=== PATIENT | female | born 1950 | race Caucasian/White ===

== ENCOUNTER 2020-07-17 06:52 | Outpatient (NON) | payer MEDICARE, BC, SELFPAY ==
[2020-07-17 23:41] LABS: SARS-CoV-2 RNA PCR Positive
== END 2020-07-17 06:53 ==
PROVIDERS: Visit Provider Family Medicine
DX: U07.1 COVID-19 (principal)
CPT/HCPCS: 87635; C9803; U0003

== ENCOUNTER → 2020-08-20 10:37 | Outpatient (CLI) | payer MEDICARE, BC, SELFPAY ==
--- NOTE | ~2020-08-20 | MM_ITS ---
EXAMINATION: MM screening sesar BI w guero HISTORY: Screening mammogram TECHNIQUE: Craniocaudal and mediolateral oblique 3-D tomosynthesis images were obtained and synthetic 2-D images were generated. CAD analysis was submitted and interpreted. COMPARISON: 02/10/2012, bilateral digital screening mammogram examinations BREAST PARENCHYMAL COMPOSITION: FINDINGS: Occasional benign calcifications. There is no evidence of suspicious mass, calcification, o r architectural distortion to suggest malignancy in either breast. There has been no suspicious inter sj change. IMPRESSION: 1. No mammographic evidence of malignancy. 2. Recommend routine screening mammography in one year. BI-RADS Category 2: Benign finding(s). Reviewed, dictated and finalized at location A.
== END ==
PROVIDERS: PCP Physician Assistant; Visit Provider Physician Assistant
DX: Z12.31 Encounter for screening mammogram for malignant neoplasm of breast (principal)
CPT/HCPCS: 77063; 77067

== ENCOUNTER → 2021-10-05 14:25 | Outpatient (CLI) | payer MEDICARE, BC, SELFPAY ==
--- NOTE | ~2021-10-05 | XR_ITS ---
XR shoulder RT min 2V 10/05/2021 15:25 Indication: Right shoulder pain Procedure: 4 views right shoulder Comparison: No prior studies for comparison. Findings: No fracture, subluxation or dislocation. There is ossification adjacent to the humeral head , consistent with calcific tendinopathy. No fracture or traumatic malalignment. No significant soft t issue abnormality. 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 Reviewed, dictated and finalized at location A. OLOGY SPECIALIST Impression: 1: Probable calcific tendinopathy.
== END ==
PROVIDERS: PCP Physician Assistant; Visit Provider Physician Assistant
DX: M25.519 Pain in unspecified shoulder (principal)
CPT/HCPCS: 73030

== ENCOUNTER → 2022-02-22 14:48 | Outpatient (CLI) | payer MEDICARE, BC, SELFPAY ==
--- NOTE | ~2022-02-22 | XR_ITS ---
EXAMINATION: XR hip RT min 2V DATE: 02/22/2022 15:19 INDICATION: Right hip pain. TECHNIQUE: 2 views of right hip were obtained. COMPARISON: None. FINDINGS: Bone alignment is normal. No fracture. There is mild right hip osteoarthritis. IMPRESSION: 1. Mild right hip osteoarthritis. Reviewed, dictated and finalized at location A.
== END ==
PROVIDERS: Visit Provider Physician Assistant
DX: M16.11 Unilateral primary osteoarthritis, right hip (principal)
CPT/HCPCS: 73502

== ENCOUNTER → 2022-12-16 09:59 | Outpatient (CLI) | payer MEDICARE, BC, SELFPAY ==
--- NOTE | ~2022-12-16 | XR_ITS ---
XR wrist RT min 3V DATE: 12/16/2022 10:31 INDICATION: Right wrist pain TECHNIQUE: 4 views COMPARISON: None FINDINGS: There is osteopenia. There is mildly comminuted recent minimally displaced fracture of the proximal aspect of the lunate b one. No definite fracture of the wrist is identified. No dislocation. There is osteoarthritic change at the first metacarpophalangeal joint and multiple interphalangeal vinny ints, particularly severe at the proximal interphalangeal joints of the fourth digit. IMPRESSION: Lunate fracture Osteopenia Polyarticular osteoarthritis Reviewed, dictated and finalized at location B. [employer]GY INTERNS[employer]IP
== END ==
PROVIDERS: PCP Physician Assistant; Visit Provider Physician Assistant
DX: M19.031 Primary osteoarthritis, right wrist (principal); M85.831 Other specified disorders of bone density and structure, right forearm; S62.121A Displaced fracture of lunate [semilunar], right wrist, initial encounter for closed fracture; X58.XXXA Exposure to other specified factors, initial encounter
CPT/HCPCS: 73110

== ENCOUNTER → 2023-01-13 13:32 | Outpatient (CLI) | payer MEDICARE, BC, SELFPAY ==
--- NOTE | ~2023-01-13 | MR_ITS ---
MRI of the right wrist Technique: Coronal T1 weighted and proton density fat sat images, and axial and sagittal proton-densi ty and proton-density fat-sat images were acquired. Clinical History: Pain Findings: There is patchy amorphous bone marrow edema, particularly involving the distal arm and the proximal carpal row. There is hypointense T1 signal of the lunate, with findings suggestive healing f racture of the lunate. Suggestion of scattered erosions, again, most notably at the ulnar styloid pro cess, and proximal carpal row, but also possibly involving the capitate and trapezium. No dislocation evident. Scapholunate ligament is intact, and there is no widening of the scapholunate interval. Lunotriquetra l ligament is probably intact. There is probable complete perforation of the central articular disc o f the TFCC, which is poorly delineated. There is tenosynovitis of the extensor carpi ulnaris tendon focally at the level of the distal ulna. Remaining flexor and extensor tendons and tendon sheath are otherwise unremarkable. There is a small ganglion cyst just superficial to the distal ulna. IMPRESSION: Patchy amorphous bone marrow edema involving the distal ulna and proximal carpal, with suggestion of scattered erosions and synovitis. Findings suggest inflammatory arthropathy. Correlate clinically. Suggestion of healing fracture of the lunate bone. Tenosynovitis focally of the extensor carpi ulnaris tendon sheath. Probable complete perforation of the central articular disc of the TFCC. Reviewed, dictated and finalized at [facility]. INAL ATTORNEY IMPRESSION: Patchy amorphous bone marrow edema involving the distal ulna and proximal carpa l, with suggestion of scattered erosions and synovitis. Findings suggest inflam matory arthropathy. Correlate clinically. Suggestion of healing fracture of the lunate bone. Tenosynovitis focally of the extensor carpi ulnaris tendon sheath. Probable complete perforation of the central articular disc of the TFCC.
== END ==
PROVIDERS: PCP Family Medicine; Visit Provider Orthopaedic Surgery Hand Surgery
DX: M25.531 Pain in right wrist (principal); M65.841 Other synovitis and tenosynovitis, right hand
CPT/HCPCS: 73221

== ENCOUNTER 2023-02-08 10:42 | Outpatient (CLI) | payer MEDICARE, BC, SELFPAY ==
--- NOTE | 2023-02-08 | ECG_ITS ---
Measurements Intervals [place] Rate: 83 P: 50 NE: 145 QRS: 22 QRSD: 85 T: 29 QT: 345 QTc: 406 Interpretive Statements SINUS RHYTHM VENTRICULAR BIGEMINY LOW QRS VOLTAGE IN PRECORDIAL LEADS CONSIDER INFERIOR INFARCT, AGE INDETERMINATE ABNORMAL ECG COMPARED TO ECG 02/16/2019 17:52:32 NO SIGNIFICANT CHANGES Electronically Signed On 02-08-2023 12:45:49 CDT by Albin Sutton D.O.
[2023-02-08 11:41] LABS: Anion Gap 6 mmol/L (8-16); Blood Urea Nitrogen 19 mg/dL (7-17); Calcium 9.4 mg/dL (8.4-10.2); Carbon Dioxide 25 mmol/L (22-30); Chloride 104 mmol/L (98-107); Estimated Glomerular Filt Rate > 60; Glucose 149 mg/dL (65-110); Potassium 4.5 mmol/L (3.4-5.0); Sodium 135 mmol/L (137-145)
== END 2023-02-08 10:43 | disposition home or self-care (01) ==
LOC: ANHLAB 10:46
PROVIDERS: PCP Family Medicine; Visit Provider Orthopaedic Surgery Hand Surgery
DX: M79.641 Pain in right hand (principal); Z01.818 Encounter for other preprocedural examination; R94.31 Abnormal electrocardiogram [ECG] [EKG]
CPT/HCPCS: 36415; 80048; 93005

== ENCOUNTER → 2023-02-08 13:30 | Outpatient (CLI) | payer MEDICARE, BC, SELFPAY ==
--- NOTE | ~2023-02-08 | MM_ITS ---
EXAMINATION: MM screening sesar BI w guero HISTORY: Screening TECHNIQUE: Craniocaudal and mediolateral oblique 3-D tomosynthesis images were obtained and synthetic 2-D images were generated. CAD analysis was submitted and interpreted. COMPARISON: No prior mammogram is available for comparison at this institution. BREAST PARENCHYMAL COMPOSITION: There are scattered areas of fibroglandular density. FINDINGS: There is no evidence of suspicious mass, calcification, or architectural distortion to sugg est malignancy in either breast. There has been no suspicious interval change. IMPRESSION: 1. No mammographic evidence of malignancy. 2. Recommend routine screening mammography in one year. BI-RADS Category 1: Negative Reviewed, dictated and finalized at location A.
== END ==
PROVIDERS: PCP Family Medicine; Visit Provider Physician Assistant
DX: Z12.31 Encounter for screening mammogram for malignant neoplasm of breast (principal)
CPT/HCPCS: 77063; 77067

== ENCOUNTER 2024-04-16 15:51 | Outpatient (CLI) | payer MEDICARE, BC, SELFPAY ==
--- NOTE | ~2024-04-16 | MM_ITS ---
EXAMINATION: MM screening sesar BI w guero HISTORY: Screening TECHNIQUE: Craniocaudal and mediolateral oblique 3-D tomosynthesis images were obtained and synthetic 2-D images were generated. CAD analysis was submitted and interpreted. COMPARISON: Comparison to multiple prior studies sequentially, with oldest reviewed study dated 08/20. BREAST PARENCHYMAL COMPOSITION: Not dense: There are scattered areas of fibroglandular density. FINDINGS: There is no evidence of suspicious mass, calcification, or architectural distortion to sugg est malignancy in either breast. There has been no suspicious interval change. IMPRESSION: 1. No mammographic evidence of malignancy. 2. Recommend routine screening mammography in one year. BI-RADS Category 1: Negative Reviewed, dictated and finalized at location A.
== END 2024-04-16 15:52 | disposition home or self-care (01) ==
LOC: ANHIMG 15:52
PROVIDERS: PCP Family Medicine; Visit Provider Physician Assistant
DX: Z12.31 Encounter for screening mammogram for malignant neoplasm of breast (principal)
CPT/HCPCS: 77063; 77067

== ENCOUNTER 2024-05-02 08:49 | Outpatient (CLI) | payer MEDICARE, BC, SELFPAY ==
--- NOTE | ~2024-05-02 | US_ITS ---
US arterial ankle brachial ind INDICATION: Peripheral vascular disease TECHNIQUE: Segmental pressures and plethysmographic and Doppler waveforms of the brachial and lower e xtremity arteries were obtained. COMPARISON: None. FINDINGS: Right and left brachial artery pressures of 149 mm Hg and 131 mm Hg, respectively, are concordant (no rmal difference <= 30 mmHg). The right ankle-brachial index (FLORA) is 1.05 (normal >= 0.9-1.0). The right great toe-brachial index (TBI) is 0.55 (normal >= 0.60). The left FLORA is 1.06. The left TBI is 0.23. IMPRESSION: 1. Normal ankle-brachial indices. 2: Diminished bilateral toe brachial indices, left greater than right, consistent with peripheral ar terial disease. Reviewed, dictated and finalized at location B. IMPRESSION: 1. Normal ankle-brachial indices. 2: Diminished bilateral toe brachial indices, left greater than right, consist ent with peripheral arterial disease.
== END 2024-05-02 08:50 | disposition home or self-care (01) ==
LOC: ANHIMG 08:50
PROVIDERS: PCP Family Medicine; Visit Provider Physician Assistant
DX: I73.9 Peripheral vascular disease, unspecified (principal)
CPT/HCPCS: 93922

== ENCOUNTER 2024-06-13 16:13 | Outpatient (CLI) | payer MEDICARE, BC, SELFPAY ==
--- NOTE | ~2024-06-13 | XR_ITS ---
AP and lateral views of the left hip Clinical history: Pain Findings: No acute fracture or dislocation is seen. Osseous alignment is anatomic. Left hip joint is preserved. Soft tissues are unremarkable. Impression: No significant abnormality is seen. Reviewed, dictated and finalized at location M. Impression: No significant abnormality is seen.
--- NOTE | ~2024-06-13 | XR_ITS ---
AP view of the pelvis and AP and lateral views of the right hip Clinical history: Pain Findings: No acute fracture or dislocation is seen. Osseous alignment is anatomic. Bilateral hip and SI joint spaces are preserved. Soft tissues are unremarkable. Impression: No significant abnormality is seen. Reviewed, dictated and finalized at location . Impression: No significant abnormality is seen.
--- NOTE | ~2024-06-13 | XR_ITS ---
Lumbosacral Spine: AP, oblique, and lateral views Clinical History: Pain Findings: The normal lordotic curve is maintained. No acute fracture identified. Probable grade 1 ant erolisthesis of L5 over S1. There is severe degenerative disc narrowing throughout the lumbar spine. There is severe facet arthropathy throughout the lumbar spine. The sacroiliac joints are normally out lined. Impression: Severe degenerative spondylosis throughout the lumbar spine. Probable grade 1 anterolisthesis of L5 over S1. Reviewed, dictated and finalized at location M. Impression: Severe degenerative spondylosis throughout the lumbar spine. Probable grade 1 anterolisthesis of L5 over S1.
== END 2024-06-13 16:14 | disposition home or self-care (01) ==
PROVIDERS: PCP Family Medicine; Visit Provider Physician Assistant
DX: M47.896 Other spondylosis, lumbar region (principal); M25.552 Pain in left hip; M25.551 Pain in right hip
CPT/HCPCS: 72110; 73502

== ENCOUNTER 2024-06-15 20:11 | Emergency (ER) | payer MEDICARE, BC, SELFPAY ==
[2024-06-15] VITALS (21 sets, daily range): BP systolic 103–141; BP diastolic 52–62; PULSE 86; RESP 16; TEMP 36.4; O2SAT 96–100
--- NOTE | ~2024-06-15 | CT_ITS ---
EXAMINATION: CT lumbar spine wo con DATE: 06/16/2024 00:06 INDICATION: Low back pain radiating down the legs TECHNIQUE: Computed tomography (CT) of the head was performed without intravenous contrast. The mA wa s adjusted according to patient size. Iterative reconstruction technique was employed. Exam dose: 14 81.12 mGy-cm total exam DLP. Lumbar spine COMPARISON: 06/13/2024 lumbar spine FINDINGS: Incidental findings: Hiatal hernia. Diverticulosis of the sigmoid colon. Small lower pole left renal nonobstructing calculus versus less likely arterial calcification. There is severe degenerative disc disease throughout the lumbar spine including L1-2 through L5-S1, w ith severe loss of disc space height, degenerative spurring, vacuum phenomenon at all levels. There is prominent degenerative change of the lumbar apophyseal joints bilaterally. Moderate to severe spinal canal stenosis at L2-3, mild spinal canal stenosis at L3-4 and moderate to severe spinal stenosis at L4-5. Multiple bilateral foraminal stenosis, most severe at L5-S1. IMPRESSION: Severe lumbar spondylosis; no fracture or bone destruction Reviewed, dictated and finalized at Location A. Reviewed, dictated and finalized at location A.
--- NOTE | ~2024-06-15 | XR_ITS ---
XR chest 2V DATE: 06/16/2024 00:29 INDICATION: Lower extremity edema TECHNIQUE: AP and lateral views COMPARISON: 12/09/2015 PA and lateral chest FINDINGS: Mild cardiomegaly. Aortic ectasia and tortuosity. No hilar or mediastinal enlargement is ev ident. Mild discoid atelectasis or scarring in the lower lung zones. No pulmonary consolidation, pleural eff usion, pulmonary vascular congestion or pneumothorax is detected. IMPRESSION: Mild bilateral lower lung discoid atelectasis or scarring Cardiomegaly Reviewed, dictated and finalized at location A.
[2024-06-15 23:57] LABS: Basophils Absolute Auto 0.1 K/mm3 (0.0-0.1); Basophils Percent Auto 0.7 % (0.2-1.2); Eosinophils Absolute Auto 0.2 K/mm3 (0-0.3); Eosinophils Percent Auto 3.1 % (0-4.4); Hemoglobin 10.6 g/dL (12.0-15.0); Immature Granulocyte Absolute 0.02 K/mm3 (0.00-0.031); Immature Granulocyte Percent A 0.3 % (0-0.5); Lymphocytes Absolute Auto 3.43 K/mm3 (0.9-3.2); Lymphocytes Percent Auto 45.9 % (18.3-44.2); Mean Corpuscular HGB Conc 31.2 g/dl (32-36); Mean Corpuscular Volume 86.7 fl (80-100); Mean Platelet Volume 9.1 fl (7.4-10.4); Monocytes Absolute Auto 0.6 K/mm3 (0.1-0.6); Monocytes Percent Auto 8.6 % (2.6-8.5); Neutrophils Absolute Auto 3.1 K/mm3 (1.3-6.7); Neutrophils Percent Auto 41.4 % (45.5-73.1); Platelet Count Result 337 k/mm3 (150-375); Red Blood Count 3.92 M/mm3 (4.2-5.4); Red Cell Distribution Width 17.3 % (11.5-14.5); White Blood Count 7.5 K/mm3 (4.5-10.0)
[2024-06-16] VITALS (17 sets, daily range): BP systolic 120–136; BP diastolic 51–69; PULSE 86; RESP 14; O2SAT 90–100
[2024-06-16 00:07] LABS: Prothrombin Time 13.6 Seconds (11.1-14.7)
[2024-06-16 00:08] LABS: Partial Thromboplastin Time 28.8 Seconds (22.3-36.8)
--- NOTE | 2024-06-16 00:09 | ED.BACK ---
HPI - Back Pain/Injury General Chief Complaint: Back Pain/Injury Stated Complaint: leg/lower back pain Time Seen by Provider: 06/15/24 22:48 Source: patient Mode of arrival: ambulatory Limitations: no limitations History of Present Illness HPI Narrative: This is a 74-year-old female presents to the emergency department for low back pain. Ongoing over the last month. No known injury. Radiation into the legs bilaterally. Reports weakness in the legs. She has been seeing her primary care provider for this and is currently taking [place] and muscle relaxers. She is scheduled for an MRI in about a week. Denies saddle anesthesia or bowel/bladder incontinence. Related Data Home Medications Medication Instructions Recorded Confirmed acetaminophen 500 mg capsule 500 mg PO Q6H PRN 12/01/22 aspirin 81 mg tablet,delayed 81 mg PO DAILY 12/01/22 release (Adult Aspirin Regimen) omeprazole magnesium 20 mg 20 mg PO DAILY 12/01/22 tablet,delayed release (Prilosec OTC) Allergies Allergy/AdvReac Type Severity Reaction Status Date / Time lisinopril Allergy Unknown Cough Verified 06/11/24 18:00 Review of Systems Review of Systems: CONSTITUTIONAL: Denies fever MUSCULOSKELETAL: Reports back pain, joint pain, and myalgia. NEUROLOGIC: Reports weakness. Denies numbness All systems reviewed & are unremarkable except as noted in HPI and below PMFSH Past Medical History Medical History Chronic kidney disease, stage 3a Gastro-esophageal reflux disease without esophagitis Generalized osteoarthritis Hyperlipidemia, unspecified Hypertensive chronic kidney disease with stage 1 through stage 4 chronic kidney disease, or unspecified chronic kidney disease Lumbar spondylosis Major depressive disorder, recurrent, in remission, unspecified Obstructive sleep apnea (adult) (pediatric) Restless legs syndrome Type 2 diabetes mellitus without complications Surgical History Surgical History H/O arthroscopy of right knee 08/2002 History of appendectomy 1974 History of arthroplasty of knee Left total knee 08/08/2005 Right total knee 08/20/03 History of carpal tunnel surgery 1998 History of laryngoscopy removed nodes of vocal cords 1984 History of surgery on right wrist proximal row carpectomy 2022 History of tonsillectomy and adenoidectomy 1952 and 1959 Family History Family History Father Acute myocardial infarction Heart disease Mother Hypertension Throat cancer Grandparent Cerebrovascular accident Diabetes mellitus Infection Alzheimer's dementia Social History Social History Smoking status: Never smoker Alcohol intake: current Substance use: never Substance use type: does not use Do You Feel Safe in your Home?: Yes Lack of Transportation: No Lack of Food: Never True Current Housing: I Have Housing Concerned About Future Housing: No Difficulty Paying Gas/Electric Bills: No Difficulty Paying for Meds: No Currently Unemployed: No Education: High School Diploma/GED Difficulty w/ Childcare or Family Care: No Living arrangements: with family Occupation/Education: retired Gender identity (if verbalized by the patient): Female Sexual Orientation (if Verbalized by the Patient): Straight or Heterosexual Spiritual care concerns: No Exam Narrative: GENERAL: Well-appearing, well-nourished, and in no acute distress. HEAD: Normocephalic, atraumatic. EYES: EOMI. CHEST: Clear to auscultation. No respiratory distress. No wheezes rales or rhonchi HEART: Regular rate and rhythm. No murmur heard. Normal peripheral pulses. BACK: No midline spinal tenderness. Strength equal in bilateral lower extremities (5/5). Normal DP pulses EXTREMITIES
[2024-06-16] MEDS: KETOROLAC 30 MG/ML VIAL (*BKC) IM (00:18)
[2024-06-16] MEDS: HYDROcodone/acetaminophen (*CRX) 5-325 MG TABLET 1 TAB PO (00:18)
[2024-06-16 01:08] LABS: Alanine Aminotransferase 27 U/L (6-35); Albumin Level 4.6 g/dL (3.5-5.1); Alkaline Phosphatase 63 U/L (38-126); Anion Gap 11 mmol/L (4-12); Aspartate Amino Transferase 42 U/L (14-36); Bilirubin,Total 0.5 mg/dL (0.2-1.3); Blood Urea Nitrogen 25 mg/dL (7-17); Calcium 9.3 mg/dL (8.4-10.2); Carbon Dioxide 23 mmol/L (22-30); Chloride 102 mmol/L (98-107); Estimated CRCL calculation 60 ml/min; Estimated Glomerular Filt Rate 54; Glucose 153 mg/dL (65-110); Potassium 4.9 mmol/L (3.4-5.0); Sodium 136 mmol/L (137-145)
[2024-06-16 01:16] LABS: NT Pro B Type Natriuretic Pept 98 pg/mL (19.9-100)
--- NOTE | 2024-06-16 02:12 | PC.NURSE ---
nathan lopez back to room to educate pts. no distress noted.
== END 2024-06-16 02:34 | disposition home or self-care (01) ==
PROVIDERS: Emergency Provider Physician Assistant; PCP Family Medicine
DX: M47.816 Spondylosis without myelopathy or radiculopathy, lumbar region (principal); M48.061 Spinal stenosis, lumbar region without neurogenic claudication; R60.0 Localized edema; E11.22 Type 2 diabetes mellitus with diabetic chronic kidney disease; I12.9 Hypertensive chronic kidney disease with stage 1 through stage 4 chronic kidney disease, or unspecified chronic kidney disease; N18.31 Chronic kidney disease, stage 3a; E78.5 Hyperlipidemia, unspecified; K21.9 Gastro-esophageal reflux disease without esophagitis; M19.90 Unspecified osteoarthritis, unspecified site; G47.33 Obstructive sleep apnea (adult) (pediatric); G25.81 Restless legs syndrome; Z96.653 Presence of artificial knee joint, bilateral; I51.7 Cardiomegaly; Z79.82 Long term (current) use of aspirin; Z79.84 Long term (current) use of oral hypoglycemic drugs; Z79.899 Other long term (current) drug therapy; Z79.891 Long term (current) use of opiate analgesic
CPT/HCPCS: 36415; 71046; 72131; 80053; 83880; 85025; 85610; 85730; 96372; 99284; A9270; J1885

== ENCOUNTER 2024-07-11 11:47 | Inpatient (IN) | payer MEDICARE, BC, SELFPAY ==
[2024-07-11] VITALS (14 sets, daily range): BP systolic 103–141; BP diastolic 46–88; PULSE 70–91; RESP 16–18; TEMP 36.5–36.9; O2SAT 95–100; BMI 43.2
--- NOTE | ~2024-07-11 | XR_ITS ---
XR chest 1V portable Ordering provider: Jorge Forman MD History: 74 years Female with . Back pain . Comparison: June 16, 2024 FINDINGS: MEDIASTINUM: The cardiac silhouette is slightly enlarged.prominent sherrill. LUNGS: No infiltrates, effusions or pneumothorax. Subsegmental atelectasis in the right midzone. OTHER: No free air under the diaphragm. Degenerative spine. IMPRESSION: No change from previous examination. Reviewed, dictated and finalized at location A.
--- NOTE | ~2024-07-11 | MR_ITS ---
EXAMINATION: MR lumbar spine wo/w con DATE: 07/12/2024 08:22 INDICATION: Lower extremity weakness. Low back pain. TECHNIQUE: Magnetic resonance imaging (MRI) of the lumbar spine was performed without and with 20 mL MultiHance intravenous contrast. COMPARISON: Lumbar spine MRI 04/10/2019 FINDINGS: There is 11 degrees dextroscoliosis of lumbar spine. There is 3 mm anterolisthesis of L4 on L5 and 3 mm retrolisthesis of L5 on S1. There is mild chronic anterior wedging of L1 vertebral body. There is severely decreased disc height from L1-L2 to L5-S1 with endplate remodeling. There is ligam entum flavum hypertrophy at the disc levels from L1-L2 through L5-S1. The distal spinal cord signal i ntensity is normal. The conus medullaris is at L1-L2. The following disc levels are specifically disc ussed: L1-L2: The disc is bulging and has an annular fissure. There is severe bilateral facet joint osteoart hritis. There is mild bilateral neural foraminal stenosis. There is mild central canal stenosis. L2-L3: The disc is bulging and has an annular fissure. There is severe bilateral facet joint osteoart hritis. There is moderate bilateral neural foraminal stenosis. There is severe central canal stenosis . L3-L4: The disc is bulging and has an annular fissure. There is severe bilateral facet joint osteoart hritis. There is mild right and moderate left neural foraminal stenosis. There is mild central canal stenosis. There is severe stenosis of left lateral recess. L4-L5: The disc is bulging and has an annular fissure. There is severe bilateral facet joint osteoart hritis. There is moderate bilateral neural foraminal stenosis. There is mild central canal stenosis. There is severe stenosis of right lateral recess. L5-S1: The disc is bulging and has an annular fissure. There is severe bilateral facet joint osteoart hritis. There is moderate bilateral neural foraminal stenosis. There is mild central canal stenosis. There is moderate stenosis of right lateral recess. IMPRESSION: 1. Severe lumbar spondylosis. 2. Scoliosis. Reviewed, dictated and finalized at location A.
[2024-07-11] MEDS: LIDOCAINE 5% PATCH 1 PATCH TRANSDERM (12:34)
[2024-07-11] MEDS: ACETAMINOPHEN 500 MG TABLET 1000 MG PO (12:34)
[2024-07-11] MEDS: KETOROLAC 15 MG/ML VIAL (*BKC) IV PUSH (12:34)
[2024-07-11] MEDS: diazePAM INJ (*CRX) 10 MG/2 ML SYRINGE 5 MG IV PUSH (12:34)
--- NOTE | 2024-07-11 13:30 | ED.GENADULT ---
HPI - General Adult General Chief complaint: Back Pain/Injury Stated complaint: back pain Time Seen by Provider: 07/11/24 11:54 History of Present Illness HPI narrative: This is a 74-year-old female with a history of subacute back pain presenting for back pain. Patient has had a complicated course over the last month. She was at [facility] for an MRI due to her back pain, however she cannot sit still due to pain. She was then eventually discharged and went to [facility] where she was admitted. She had still did not receive an MRI but was eventually discharged to a rehabilitation center where she has been for the last 2 weeks. She was discharged home yesterday and on her 1st morning back home she now has severe pain in her back that is preventing her from functioning. She is taking her medications as directed including oxycodone and Robaxin. Patient denies any weakness to the lower extremities, urinary retention bowel incontinence or saddle anesthesia. Patient does not believe that she was safe for discharge from the rehab center. No other complaints. No recent falls or trauma. Related Data Home Medications Medication Instructions Recorded Confirmed acetaminophen 500 mg capsule 500 mg PO Q6H PRN 12/01/22 aspirin 81 mg tablet,delayed 81 mg PO DAILY 12/01/22 release (Adult Aspirin Regimen) omeprazole magnesium 20 mg 20 mg PO DAILY 12/01/22 tablet,delayed release (Prilosec OTC) Allergies Allergy/AdvReac Type Severity Reaction Status Date / Time lisinopril Allergy Unknown Cough Verified 06/21/24 14:53 [facility] Past Medical History Medical History Chronic kidney disease, stage 3a Gastro-esophageal reflux disease without esophagitis Generalized osteoarthritis Hyperlipidemia, unspecified Hypertensive chronic kidney disease with stage 1 through stage 4 chronic kidney disease, or unspecified chronic kidney disease Lumbar spondylosis Major depressive disorder, recurrent, in remission, unspecified Obstructive sleep apnea (adult) (pediatric) Restless legs syndrome Type 2 diabetes mellitus without complications Surgical History Surgical History H/O arthroscopy of right knee 08/2002 History of appendectomy 1974 History of arthroplasty of knee Left total knee 08/08/2005 Right total knee 08/20/03 History of carpal tunnel surgery 1998 History of laryngoscopy removed nodes of vocal cords 1984 History of surgery on right wrist proximal row carpectomy 2022 History of tonsillectomy and adenoidectomy 3 and 1959 Family History Family History Father Acute myocardial infarction Heart disease Mother Hypertension Throat cancer Grandparent Cerebrovascular accident Diabetes mellitus Infection Alzheimer's dementia Social History Social History Smoking status: Never smoker Alcohol intake: current Substance use: never Substance use type: does not use Do You Feel Safe in your Home?: Yes Lack of Transportation: No Lack of Food: Never True Current Housing: I Have Housing Concerned About Future Housing: No Difficulty Paying Gas/Electric Bills: No Difficulty Paying for Meds: No Currently Unemployed: No Education: High School Diploma/GED Difficulty w/ Childcare or Family Care: No Living arrangements: with family Occupation/Education: retired Gender identity (if verbalized by the patient): Female Sexual Orientation (if Verbalized by the Patient): Straight or Heterosexual Spiritual care concerns: No Exam Narrative: APPEARANCE: No apparent distress. Obese Head: atraumatic. EYES: EOMI, NOSE: Atraumatic NECK: Trachea midline RESPIRATORY: No increased rate of breathing clear to auscultation CARDIOVASCULAR: RRR, ABDOMINAL
[2024-07-11 13:35] LABS: Basophils Percent Auto 0.6 % (0.2-1.2); Eosinophils Absolute Auto 0.1 K/mm3 (0-0.3); Eosinophils Percent Auto 1.8 % (0-4.4); Hematocrit 29.1 % (37.0-47.0); Hemoglobin 9.1 g/dL (12.0-15.0); Immature Granulocyte Absolute 0.02 K/mm3 (0.00-0.031); Immature Granulocyte Percent A 0.3 % (0-0.5); Lymphocytes Absolute Auto 2.53 K/mm3 (0.9-3.2); Mean Corpuscular HGB Conc 31.3 g/dl (32-36); Mean Corpuscular Hemoglobin 27.3 pg (26-34); Mean Corpuscular Volume 87.4 fl (80-100); Mean Platelet Volume 9.9 fl (7.4-10.4); Monocytes Absolute Auto 0.7 K/mm3 (0.1-0.6); Monocytes Percent Auto 10.1 % (2.6-8.5); Neutrophils Absolute Auto 3.8 K/mm3 (1.3-6.7); Neutrophils Percent Auto 52.2 % (45.5-73.1); Platelet Count Result 312 k/mm3 (150-375); Red Blood Count 3.33 M/mm3 (4.2-5.4); Red Cell Distribution Width 16.7 % (11.5-14.5); White Blood Count 7.2 K/mm3 (4.5-10.0)
[2024-07-11 13:45] LABS: Alanine Aminotransferase 60 U/L (6-35); Albumin Level 3.5 g/dL (3.5-5.1); Alkaline Phosphatase 87 U/L (38-126); Anion Gap 9 mmol/L (4-12); Aspartate Amino Transferase 64 U/L (14-36); Bilirubin,Total 0.4 mg/dL (0.2-1.3); Blood Urea Nitrogen 14 mg/dL (7-17); Calcium 8.7 mg/dL (8.4-10.2); Carbon Dioxide 24 mmol/L (22-30); Chloride 103 mmol/L (98-107); Estimated Glomerular Filt Rate > 60; Glucose 193 mg/dL (65-110); Sodium 136 mmol/L (137-145)
--- NOTE | 2024-07-11 13:53 | ECG_ITS ---
Test Date: 2024-07-11 14:44:39 Measurements Intervals [place] Rate: 72 P: 61 NE: 162 QRS: 36 QRSD: 77 T: 30 QT: 369 QTc: 405 Interpretive Statements SINUS RHYTHM NORMAL ECG No previous ECG available for comparison Electronically Signed On 07-12-2024 14:36:55 CDT by Edis Calloway M.D.
[2024-07-11 15:38] LABS: Add Urine Microscopic? YES; Appearance Urine Cloudy (Clear); Bacteria Urine 4+ /hpf; Bilirubin Urine Negative (Negative); Blood Urine Trace (Negative); Color Urine Yellow (Yellow); Glucose Urine UA Negative (Negative); Ketones Urine Negative (Negative); Leukocyte Esterase Ur 3+ LEU/UL (Negative); Nitrate Urine Positive (Negative); Non Pathogenic Casts 0-2; Protein Urine Negative (Negative); RBC Urine 0-2 /hpf (0-2); Specific Grav Ur 1.008 (1.001-1.035); Squamous Epithelial Cell Urine None Seen /hpf (Few); Urobilinogen Urine 0.2 mg/dL (<2.0); WBC Urine >100 /hpf (0-3)
[2024-07-11] MEDS: GABAPENTIN 300 MG CAPSULE 600 MG PO (16:03)
--- NOTE | 2024-07-11 17:03 | PM.IMHP ---
H&P: HPI History of Present Illness Date/Time: 07/11/24 17:03 Chief Complaint: Back Spasms, Chronic Pain Narrative: 74 y/o F presents here with back spasms and chronic back pain with PMH of CKD, HTN, diabetes, RLS, and hyperlipidemia. The patient presents here from home for further evaluation of back spasms and chronic back pain due to stenosis. Patient was recently admitted to [facility] from 06/22 to 06/26 for similar symptoms. There she was started on scheduled APAP, increased home Robaxin to 1500 mg t.i.d., continued p.r.n. oxycodone 10 mg q.4, started lidocaine patches and gabapentin which was titrated to 600 t.i.d.. Patient also underwent a left-sided L4 nerve root injection and per chart review, improved her pain significantly. She was discharged to rehab at [facility] for PT/OT. Patient underwent treatment there for 12-13 days and was discharged home on 07/10. Patient does not follow with neurosurgery or pain management. Has follow-up neurosurgery at [facility] next week Tu. Current regimen includes: Tylenol 500 mg q.6 hours, diclofenac 75 mg b.i.d., gabapentin 800 mg t.i.d., methocarbamol 1500 mg t.i.d., and tizanidine 4 mg q.8 hours. Patient took home medications without relief from pain and has been unable to ambulate due to the severity of pain. Patient has also previously attempted to undergo an outpatient MRI, however she was unable to tolerate the exam due to back pain and spasming which is what led her to seek care and the subsequent admission at [facility]. Patient reports overall pain has improved since initial presentation due to the nerve root injection and believes she would be able to tolerate an MRI at this time. Denies precipitating trauma prior to symptom onset 9 weeks ago. Reports her left lower extremity tends to be weaker than the right lower extremity. Pain is accompanied by numbness/tingling that primarily is more medial. Denies saddle anesthesia or loss of bowel and bladder. Initial VS at presentation: 97.9? F, HR 70, RR 16, 130/70, and 99% on RA. ED workup showed: No leukocytosis, hemoglobin 9.1 (previously 10.4 on 06/18/2024), creatinine 0.9 and GFR >60. UA consistent with UTI. CXR showed no change from previous examination on 06/16/2024. Review of Systems Review of Systems: All systems reviewed & are unremarkable except as noted in HPI and below [facility] Past Medical History Medical History Chronic kidney disease, stage 3a Gastro-esophageal reflux disease without esophagitis Generalized osteoarthritis Hyperlipidemia, unspecified Hypertensive chronic kidney disease with stage 1 through stage 4 chronic kidney disease, or unspecified chronic kidney disease Lumbar spondylosis Major depressive disorder, recurrent, in remission, unspecified Obstructive sleep apnea (adult) (pediatric) Restless legs syndrome Type 2 diabetes mellitus without complications Surgical History Surgical History H/O arthroscopy of right knee 08/2002 History of appendectomy 1975 History of arthroplasty of knee Left total knee 08/08/2005 Right total knee 08/20/03 History of carpal tunnel surgery 1998 History of laryngoscopy removed nodes of vocal cords 1984 History of surgery on right wrist proximal row carpectomy 2022 History of tonsillectomy and adenoidectomy 1952 and 1959 Family History Family History Father Acute myocardial infarction Heart disease Mother Throat cancer Hypertension Grandparent Alzheimer's dementia Diabetes mellitus Infection Cerebrovascular accident Sibling Dementia Social History Social History Smoking status: Former smoker Tobacco type: cigarettes Smoking end date: 07/11/72 Alcohol intake: never Substance use: never Sub
--- NOTE | 2024-07-11 20:09 | PCRCNOTE ---
Pt states she does not wear a cpap/bipap machine at home and she does not want to wear one of hospital units.
[2024-07-11] MEDS: oxyCODONE HCL (*CRX) 5 MG TAB IR 10 MG PO (20:38)
[2024-07-11] MEDS: ATORVASTATIN 40 MG TABLET 80 MG PO (20:38)
[2024-07-11 21:21] LABS: Glucose Point of Care 176 mg/dl (65-105)
[2024-07-11] MEDS: TIZANIDINE HCL 4 MG TABLET PO (21:36)
[2024-07-11] MEDS: GABAPENTIN 400 MG CAPSULE 800 MG PO (21:36)
[2024-07-12] VITALS: BP 132/46; PULSE 91; RESP 18; TEMP 36.6; O2SAT 95
[2024-07-12] MEDS: oxyCODONE HCL (*CRX) 5 MG TAB IR 10 MG PO ×4 (01:35→17:50)
[2024-07-12] MEDS: TIZANIDINE HCL 4 MG TABLET PO ×2 (05:16→13:21)
[2024-07-12] MEDS: GABAPENTIN 400 MG CAPSULE 800 MG PO ×2 (05:16→13:21)
[2024-07-12 06:00] VITALS: BP 163/69; PULSE 90; RESP 20; TEMP 37; O2SAT 95
[2024-07-12 08:34] LABS: Glucose Point of Care 198 mg/dl (65-105)
[2024-07-12] MEDS: IRBESARTAN 150 MG TABLET 300 MG PO (10:15)
[2024-07-12] MEDS: ASPIRIN 81 MG ENTERIC TABLET PO (10:15)
[2024-07-12] MEDS: DICLOFENAC SOD 75 MG TABLET.EC PO ×2 (10:16→17:48)
[2024-07-12] MEDS: LIDOCAINE 5% PATCH 1 PATCH TRANSDERM (10:16)
[2024-07-12] MEDS: PANTOPRAZOLE 40 MG TABLET PO (10:16)
[2024-07-12] MEDS: FERROUS SULFATE 325 MG TABLET DR BY MOUTH (10:16)
--- NOTE | 2024-07-12 12:07 | PM.IMPN ---
Progress Note: A&P Assessment and Plan (1) Back pain: Qualifiers: Back pain laterality: bilateral Back pain location: low back pain Chronicity: chronic Sciatica presence: unspecified whether sciatica present Qualified Code(s): M54.50 - Low back pain, unspecified; G89.29 - Other chronic pain Code(s): M54.9 - Dorsalgia, unspecified Status: Acute Assessment and Plan: 07/12/24: Lumbar spine CT showing severe lumbar spondylosis MRI of lumbar spine showing severe lumbar spondylosis and scoliosis, bulge disc and L1-L2, L2-L3, L3-L4, L4-L5, L5 to the S1 Continue pain control PT and OT ordered Will likely need SNF placement Case coordination following (2) Type 2 diabetes mellitus without complications: Qualifiers: Diabetes mellitus long-term insulin use: without long-term use Qualified Code(s): E11.9 - Type 2 diabetes mellitus without complications Code(s): E11.9 - Type 2 diabetes mellitus without complications Status: Chronic Assessment and Plan: 07/12/24: Blood sugars ranging 176-198 Hgb A1C 7.4 Will recheck hemoglobin A1c Accu checks AC/HS Low-dose SSI ordered hypoglycemic protocol in place Diabetic diet ordered Metformin held (3) Obstructive sleep apnea (adult) (pediatric): Code(s): G47.33 - Obstructive sleep apnea (adult) (pediatric) Status: Chronic Assessment and Plan: 07/12/24: Continue home CPAP (4) Hypertension: Code(s): I10 - Essential (primary) hypertension Status: Acute Assessment and Plan: 07/12/24: Blood pressures ranging 104/47-163/69 Continue Irbesartan Time Spent With Patient Time with patient: Greater than 35 minutes Subjective Date/time seen: 07/12/24 12:07 Interval history: Interval history: This is a 74-year-old female who presented to the hospital on 07/11/2024 for evaluation of back spasms and chronic pain. Workup in the hospital included a chest x-ray which was negative. Lumbar spine CT showed severe lumbar spondylosis, no fracture or bone destruction. Lumbar spine MRI showing severe lumbar spondylosis and scoliosis, bulge disc at L1-L2, L2-L3, L3-L4, L4-L5, L5-S1. Of note patient underwent a left-sided L4 nerve root injection at [facility] and was discharged to rehab for PT and OT. She was discharged home on 07/10/2024. 07/12/24: Patient reporting that she does not use a cane or walker at home and has been in the wheelchair over the course of 6-8 weeks when her back pain started. She would like to get back to a better level of functioning now that she had this nerve root injection at [facility]. Patient denies any fever, chills, nausea, vomiting, diarrhea, abdominal pain, chest pain, shortness a breath, lightheadedness, dizziness. She does report numbness and tingling in bilateral lower extremities likely due to her neuropathy. Labs and imaging reviewed. Review of Systems Review of Systems: All systems reviewed & are unremarkable except as noted in HPI and below Constitutional: Constitutional: Reports as per HPI and Reports no additional constitutional complaints Eyes: Eyes: Reports as per HPI and Reports no additional eye complaints ENT: Reports system reviewed and no additional complaints, except as documented and Reports as per HPI Cardiovascular: Cardiovascular: Reports as per HPI and Reports no additional cardiovascular complaints Respiratory: Respiratory: Reports as per HPI and Reports no additional respiratory complaints Gastrointestinal: Gastrointestinal: Reports as per HPI and Reports no additional gastrointestinal complaints Genitourinary: Genitourinary: Reports no additional female genitourinary complaints and Reports as per HPI Musculoskeletal: Musculoskeletal: Reports no additional musculoskeletal complaints and Reports as per HPI Integumentary/Breasts: Skin/Breast: Reports system reviewed and no additional complaints, except as docu an
[2024-07-12 12:23] LABS: Glucose Point of Care 185 mg/dl (65-105)
[2024-07-12 13:21] LABS: Basophils Absolute Auto 0.1 K/mm3 (0.0-0.1); Basophils Percent Auto 0.7 % (0.2-1.2); Eosinophils Absolute Auto 0.2 K/mm3 (0-0.3); Eosinophils Percent Auto 1.8 % (0-4.4); Hematocrit 33.8 % (37.0-47.0); Hemoglobin 10.6 g/dL (12.0-15.0); Immature Granulocyte Absolute 0.03 K/mm3 (0.00-0.031); Immature Granulocyte Percent A 0.3 % (0-0.5); Lymphocytes Absolute Auto 3.01 K/mm3 (0.9-3.2); Lymphocytes Percent Auto 33.1 % (18.3-44.2); Mean Corpuscular HGB Conc 31.4 g/dl (32-36); Mean Corpuscular Hemoglobin 27.4 pg (26-34); Mean Corpuscular Volume 87.3 fl (80-100); Mean Platelet Volume 9.6 fl (7.4-10.4); Monocytes Absolute Auto 0.8 K/mm3 (0.1-0.6); Monocytes Percent Auto 8.8 % (2.6-8.5); Neutrophils Percent Auto 55.3 % (45.5-73.1); Platelet Count Result 363 k/mm3 (150-375); Red Blood Count 3.87 M/mm3 (4.2-5.4); Red Cell Distribution Width 16.7 % (11.5-14.5); White Blood Count 9.1 K/mm3 (4.5-10.0)
[2024-07-12 13:34] LABS: Anion Gap 10 mmol/L (4-12); Bilirubin,Total 0.4 mg/dL (0.2-1.3); Blood Urea Nitrogen 15 mg/dL (7-17); Calcium 9.2 mg/dL (8.4-10.2); Carbon Dioxide 28 mmol/L (22-30); Chloride 100 mmol/L (98-107); Estimated CRCL calculation 68 ml/min; Estimated Glomerular Filt Rate > 60; Glucose 174 mg/dL (65-110); Sodium 138 mmol/L (137-145)
[2024-07-12 13:35] LABS: Alanine Aminotransferase 59 U/L (6-35); Albumin Level 3.9 g/dL (3.5-5.1); Alkaline Phosphatase 89 U/L (38-126); Aspartate Amino Transferase 61 U/L (14-36)
[2024-07-12 14:00] VITALS: BP 121/93; PULSE 100; RESP 20; TEMP 36.4; O2SAT 98
--- NOTE | 2024-07-12 15:43 | WPDNEUROSGCN ---
Assessment and Plan Assessment and plan (1) Spinal stenosis: Qualifiers: Neurogenic claudication status: with neurogenic claudication Spinal region: lumbar Qualified Code(s): M48.062 - Spinal stenosis, lumbar region with neurogenic claudication Code(s): M48.00 - Spinal stenosis, site unspecified Status: Acute (2) Back pain: Qualifiers: Back pain laterality: bilateral Back pain location: low back pain Chronicity: chronic Sciatica presence: unspecified whether sciatica present Qualified Code(s): M54.50 - Low back pain, unspecified; G89.29 - Other chronic pain Code(s): M54.9 - Dorsalgia, unspecified Status: Acute (3) Unable to ambulate: Code(s): R26.2 - Difficulty in walking, not elsewhere classified Status: Acute Plan Arabella is a very pleasant 74-year-old female with a spinal canal stenosis and neurogenic claudication with left lower extremity weakness and intermittent incontinence issues worrisome for impending or developing cauda equina syndrome. We had a long discussion today. She has a very complex problem unfortunately. She has severe spinal canal stenosis at L2-3 with a left paracentral disc herniation and facet arthropathy as well as ligamentum flavum hypertrophy leading to severe spinal canal stenosis. This is what is most likely causing the left lower extremity weakness. She is somewhat unclear about the bladder bowel incontinence. She is not stating that she is having clear incontinence of bladder or bowel, it only happens when she has severe amount pain. Regardless given the weakness I think proceeding with surgical intervention is totally reasonable at this time, unfortunately this is a complex situation given her scoliosis multilevel spondylosis. She needs a decompression at L2-3 however by decompressing her at L2-3 in the setting of scoliosis and multilevel degenerative disc disease as well as the large gap between the facet joints CT and MRI on the left side I am worried that she would most likely have decompensation of her scoliosis and or instability postoperatively. We are going to discuss this with the family and discuss whether we proceed forward with surgical intervention which would most likely be a posterior spinal fusion at L2-3 with laminectomy. Consult date: 07/12/24 Time Seen: 15:44 Reason for consult: Lower extremity weakness HPI: Arabella Padron is a 74 year old female was asked to see for left lower extremity weakness and severe back pain. She is a very pleasant 74-year-old female with an 8-9 week history of worsening back pain and left lower extremity pain. She was recently admitted to [facility] for intractable pain, she was sent to [facility] for rehabilitation, states that she was doing better and was subsequently sent home. She underwent an injection on 06/25/2024. She was unable to get an MRI at her last hospitalization secondary to severe pain. She went home for 1 day and was readmitted to [facility] for worsening pain in the left lower extremity. She gets cramps and spasms in her lower extremities and her back left greater than right with any sort of movement. She has been unable to walk for some time now, was walking with a cane/walker. Now is unable to ambulate secondary to pain. She has not the best historian, states that it has been sometime since she has been walking pain-free. She has had incontinence issues of both bladder and bowel, however she states that she can feel the urge to urinate or defecate it is just that she is unable to get to the bathroom on time or the pain gets so bad from trying to get to the bathroom that she just goes on herself. It is not kris overflow incontinence. The nurse states that they were trying to move her this morning and she had bowel incontinence however she was in severe pain. Unclear on how long this has been going on she says at least a couple of weeks. She is so weak she cannot lift he
[2024-07-12 16:58] LABS: Glucose Point of Care 145 mg/dl (65-105)
== END 2024-07-12 19:45 | disposition short-term general hospital (02) | DRG 552 ==
LOC: ANHED 16:33 → ANH3MEDSUR 16:56
PROVIDERS: Nurse Practitioner Acute Care; Admitting Provider Internal Medicine; Emergency Provider Emergency Medicine; PCP Family Medicine; Visit Provider General Practice
DX: M48.062 Spinal stenosis, lumbar region with neurogenic claudication (principal); N39.0 Urinary tract infection, site not specified; I12.9 Hypertensive chronic kidney disease with stage 1 through stage 4 chronic kidney disease, or unspecified chronic kidney disease; G89.29 Other chronic pain; M47.816 Spondylosis without myelopathy or radiculopathy, lumbar region; R26.2 Difficulty in walking, not elsewhere classified; E11.22 Type 2 diabetes mellitus with diabetic chronic kidney disease; E78.5 Hyperlipidemia, unspecified; G47.33 Obstructive sleep apnea (adult) (pediatric); G25.81 Restless legs syndrome; K21.9 Gastro-esophageal reflux disease without esophagitis; N18.31 Chronic kidney disease, stage 3a; Z96.653 Presence of artificial knee joint, bilateral; Z87.891 Personal history of nicotine dependence; Z79.82 Long term (current) use of aspirin; Z79.84 Long term (current) use of oral hypoglycemic drugs; Z99.89 Dependence on other enabling machines and devices
CPT/HCPCS: 36415; 71045; 72158; 80053; 81001; 82948; 85025; 87077; 87086; 87088; 87186; 93005; 96374; 96375; 99285; A9270; A9577; J0696; J1885; J3360

== ENCOUNTER 2025-02-14 03:32 | Inpatient (IN) | payer MEDICARE, BC, SELFPAY ==
[2025-02-14] VITALS (18 sets, daily range): BP systolic 99–138; BP diastolic 49–105; PULSE 45–87; RESP 12–20; TEMP 36.1–36.8; O2SAT 85–100; BMI 33.4; BMI 33.1
--- NOTE | ~2025-02-14 | XR_ITS ---
Portable chest x-ray Comparison: 07/11/2024 Clinical History: Status post fall Findings: Lungs are clear, without focal consolidation or pleural effusion. Cardiomediastinal silho uette is stable. Bones and soft tissues are unremarkable. Impression: Clear lungs. Reviewed, dictated and finalized at location . Impression: Clear lungs.
--- NOTE | ~2025-02-14 | XR_ITS ---
AP view of the pelvis and AP and lateral views of the left hip Clinical history: Pain Findings: There is acute, mildly displaced subcapital fracture of the left femoral neck.. Bilateral h ip and SI joint spaces are preserved. Soft tissues are unremarkable. Impression: Acute subcapital fracture of the left femoral neck, as detailed above. Reviewed, dictated and finalized at location . Impression: Acute subcapital fracture of the left femoral neck, as detailed above.
--- NOTE | ~2025-02-14 | XR_ITS ---
EXAMINATION: XR hip LT min 2V DATE: 02/14/2025 16:24 INDICATION: Postop left hip arthroplasty TECHNIQUE: 2 views of the left hip were performed FINDINGS: There is a left total hip arthroplasty in expected position. Subcutaneous gas with soft ti ssue swelling are consistent with recent surgery. IMPRESSION: Expected postoperative appearance of a left-sided total hip arthroplasty, as detailed above. Reviewed, dictated and finalized at location A. IMPRESSION: Expected postoperative appearance of a left-sided total hip arthroplasty, as de tailed above.
--- NOTE | 2025-02-14 03:51 | ECG_ITS ---
Test Date: 2025-02-14 05:01:32 Measurements Intervals Flanagan Rate: 80 P: 19 MI: 141 QRS: 18 QRSD: 82 T: 16 QT: 368 QTc: 426 Interpretive Statements SINUS RHYTHM LOW QRS VOLTAGE IN PRECORDIAL LEADS [QRS DEFLECTION < 1.0 mV IN CHEST LEADS] Compared to ECG 07/11/2024 14:44:39 NO SIGNIFICANT CHANGES Electronically Signed On 02-14-2025 18:31:43 CDT by Jeb Garcia M.D.
[2025-02-14] MEDS: ONDANSETRON INJ 4 MG/2 ML VIAL IV PUSH (03:58)
[2025-02-14] MEDS: MORPHINE SULFATE (*CRX) 4 MG/ML INJ IV PUSH ×3 (03:59→07:57)
[2025-02-14 04:02] LABS: Basophils Percent Auto 0.3 % (0.2-1.2); Eosinophils Absolute Auto 0.2 K/mm3 (0-0.3); Eosinophils Percent Auto 1.8 % (0-4.4); Hematocrit 35.8 % (37.0-47.0); Immature Granulocyte Absolute 0.05 K/mm3 (0.00-0.031); Immature Granulocyte Percent A 0.4 % (0-0.5); Lymphocytes Absolute Auto 5.56 K/mm3 (0.9-3.2); Lymphocytes Percent Auto 45.8 % (18.3-44.2); Mean Corpuscular HGB Conc 30.7 g/dl (32-36); Mean Corpuscular Hemoglobin 24.5 pg (26-34); Mean Corpuscular Volume 79.7 fl (80-100); Monocytes Absolute Auto 0.7 K/mm3 (0.1-0.6); Monocytes Percent Auto 5.9 % (2.6-8.5); Neutrophils Absolute Auto 5.6 K/mm3 (1.3-6.7); Neutrophils Percent Auto 45.8 % (45.5-73.1); Platelet Count Result 383 k/mm3 (150-375); Red Blood Count 4.49 M/mm3 (4.2-5.4); Red Cell Distribution Width 16.2 % (11.5-14.5); White Blood Count 12.1 K/mm3 (4.5-10.0)
[2025-02-14 04:06] LABS: INR 0.9; Prothrombin Time 12.8 Seconds (11.1-14.7)
[2025-02-14 04:07] LABS: Partial Thromboplastin Time 28.9 Seconds (22.3-36.8)
[2025-02-14 04:09] LABS: Alanine Aminotransferase 23 U/L (6-35); Albumin Level 4.7 g/dL (3.5-5.1); Alkaline Phosphatase 87 U/L (38-126); Anion Gap 13 mmol/L (4-12); Aspartate Amino Transferase 30 U/L (14-36); Bilirubin,Total 0.3 mg/dL (0.2-1.3); Blood Urea Nitrogen 33 mg/dL (7-17); Calcium 9.7 mg/dL (8.4-10.2); Carbon Dioxide 20 mmol/L (22-30); Chloride 103 mmol/L (98-107); Estimated CRCL calculation 52 ml/min; Estimated Glomerular Filt Rate 52; Glucose 117 mg/dL (65-110); Potassium 4.1 mmol/L (3.4-5.0); Sodium 136 mmol/L (137-145)
--- OUTSIDE RECORDS SUMMARY | 2025-02-14 04:30 | XMS_ITS | Data Portability ---
Author Organization [place] [facility], Main Office Address [address] [place] [address] Care Team Providers Care Lathmaker Name Role Phone FRANCISCA COMER Primary Care Provider [phone] FRANCISCA COMER Referring Provider Assessment No assessment recorded. Plan of Treatment Reminders Order Date Submit Date Provider Last Modified By Organization Details Last Modified Time Details Appointments None record ed. Lab None record ed. Referral None record ed. Procedures None record ed. Surgeries None record ed. Imaging None record ed. Medication Orders None record ed. Patient TargetsNo targets recorded. Patient InstructionsNo instructions recorded. Reason for Referral None Reported. Results Created Date Observation Date Name Description Value Unit Range Abnormal Flag Note LastModifiedBy Organization Detail LastModifiedTime 12/19/19 23 12/16/2022 XR, wrist , 3 or more view No observ ation record ed. [id number] Not Available 01/25/2023 12:46:48 01/16/20 23 01/13/2023 MRI, wrist , w/o contr ast No observ ation record ed. [id number] [facility] [address], [place], [address], 01/25/2023 12:46:48 Result Notes None recorded. Problems Name Problem SNOMED Code Status Onset Date Resolution Date Notes Provider Name and Address Organization Details Recorded Time Disorder of shoulder 877477006 Active Not Available [facility] 12:45:18 Radiothera py follow-up 006139088 Active Not Available [facility] 12:45:18 Shoulder joint pain 684811835 Active Not Available [facility] 12:45:18 Closed fracture of metatarsal bone 73558038 Active Not Available [facility] 3 12:45:18 Adhesive capsulitis of shoulder 720666906 Active Not Available [facility] 3 12:45:18 Disorder of rotator cuff 953504429 Active Not Available [facility] 3 12:45:18 Fracture of lower leg 587118334 Active Not Available [facility] 3 12:45:18 Disorder of bursa of shoulder region 80795370 Active Not Available [facility] 3 12:45:18 Pain of right wrist 1561139663844 00 Active 2022 Tatyana espinal, [place] [employer] [facility] [employer] 3 16:01:27 Osteonecro sis of lunate 173975661 Active 2022 Tatyana espinal, [place] [facility] [employer] 3 16:01:38 Problem Notes None recorded. Procedures Surgical History Date Name Laterality Status Provider Name and Address Organization Details Recorded Time Carpal tunnel completed Not Available [facility] 01/25/2023 12:44:47 microlaryngoscopy completed Not Available [facility] 01/25/2023 12:44:47 Knee Replacement completed Not Available [facility] 01/25/2023 12:44:47 Imaging Results Imaging Date Name Status LastModified by Organiz ation Details LastModified Time 12/16/2022 XR, wrist, 3 or more view completed [id number] Information not available 01/25/2023 12:46:48 01/13/2023 MRI, wrist, w/o contrast completed [id number] [facility] [address], [place], [address], 01/25/2023 12:46:48 Procedure Notes None recorded. Medical Equipment None Reported. Medications Name Sig Start Date Stop Date Status Note LastModified by Organization Details LastModified Time cyclobenzap rine 10 mg tablet 11/15 completed Not Available Not Available Not Available amoxicillin 500 mg capsule 11/15 completed Not Available Not Available Not Available atorvastati n 80 mg tablet TAKE 1 TABLET BY MOUTH EVERY DAY active Not Available Not Available No t Available prednisone 10 mg tablet 11/15 completed Not Available Not Available Not Available azithromyci n 250 mg tablet 11/15 completed Not Available Not Available Not Available hydrocodone 5 mg-acetamin ophen 325 mg tablet 11/15 completed Not Available Not Available Not Available prednisone 20 mg tablet 11/15 completed Not Available Not Available Not Available pioglitazon e 45 mg tablet 11/15 completed Not Available Not Available Not Available chlorthalid one 25 mg tablet 11/15 completed Not Available Not Available Not Available amlodipine 5 mg tablet TAKE 1 TABLET BY MOUTH EVERY DAY active Not Available Not Available No t Available sulfamethox azole 800 mg-trimetho prim 160 mg tablet 11/15 completed Not Available Not Available Not Available tramadol 50 mg tablet 11/15 completed Not Available Not Available Not Available amoxicillin 875 mg tablet 11/15 completed Not Available Not Available Not Available citalopram 20 mg tablet TK 1 T PO QD 11/15 completed Not Available Not Available Not Available meclizine 25 mg tablet TAKE 1 TABLET BY MOUTH THREE TIMES DAILY NEEDED FOR DIZZINESS active Not Available Not Available No t Available sulfacetami de sodium 10 % eye drops 11/15 completed Not Available Not Available Not Available hydrocodone 7.5 mg-acetamin ophen 325 mg tablet TAKE 1 TABLET EVERY 6 HOURS NEEDED FOR PAIN active Not Available Not Available No t Available metformin 1,000 mg tablet TAKE 1 TABLET BY MOUTH EVERY DAY WITH A MEAL active Not Available Not Available No t Available ropinirole 0.5 mg tablet TK 1 T PO QD HS 11/15 completed Not Available Not Available Not Available aspirin 81 mg chewable tablet Chew 1 tablet every day by oral route. 2022 active Not Available Not Available Not Avai lable diclofenac sodium 75 mg tablet,lavonne yed release TAKE 1 TABLET BY MOUTH TWICE DAILY active Not Available Not Available No t Available montelukast 10 mg tablet 11/15 completed Not Available Not Available Not Available irbesartan 150 mg tablet 11/15 completed Not Available Not Available Not Available pioglitazon e 30 mg tablet 11/15 completed Not Available Not Available Not Available irbesartan 300 mg tablet TAKE 1 TABLET BY MOUTH EVERY DAY active Not Available Not Available No t Available acetaminoph en 2022 active Not Available Not Available Not Avai lable ProAir HFA 90 mcg/actuati on aerosol inhaler 11/15 completed Not Available Not Available Not Available omeprazole 20 mg tablet,lavonne yed release Take by oral route. 2022 active Not Available Not Available Not Avai lable alogliptin 12.5 mg-metformi n 1,000 mg tablet TAKE ONE TABLET BY MOUTH EVERY DAY active Not Available Not Available No t Available Invokana 100 mg tablet 11/15 completed Not Available Not Available Not Available Tanzeum 30 mg/0.5 mL subcutaneou s pen injector 11/15 completed Not Available Not Available Not Available Vitals Date Recorded Body mass index (BMI) Body height Body weight Provider Name and Address Organization Details Last Updated DateTime 01/03/2023 41.8 kg/m2 172.72 cm 169633.9 g Not Available [facility] 01/25/2023 12:44:54 Date Recorded Body mass index (BMI) Body height Pain severity - 0-10 verbal numeric rating [Score] - Reported Body weight Provider Name and Address Organization Details Last Updated DateTime 01/24/2023 41.1 kg/m2 172.72 cm 5 155258.94 g Not Available [facility] 01/25/2023 12:44:54 Date Recorded Body height Body mass index (BMI) Body weight Provider Name and Address Organization Details Last Updated DateTime 03/01/2023 172.72 cm 41.1 kg/m2 144697.94 g Tatyana Hughes [email or web address] 03/01/2023 16:01:02 Date Recorded Body height Body mass index (BMI) Body weight Provider Name and Address Organization Details Last Updated DateTime 03/29/2023 172.72 cm 41.1 kg/m2 661657.94 g YESSICA Mims [email or web address] 03/29/2023 15:57:23 Social History Question Answer Notes LastModified by Organizat ion Details LastModified Time Tobacco Smoking Status Former Smoker Not Available [facility] 01/25/2023 12:44:41 What Is Your Level Of Alcohol Consumption? Occasional [id number] Information not available 01/25/2023 When Did You Quit Smoking? 16+yearssinmylene bonilla [id number] Information not available 01/25/2023 What Was The Date Of Your Most Recent Tobacco Screening? 01/24/2023 [id number] Information not available 01/25/2023 Sex: Unknown Functional Status None recorded. Mental Status None recorded. Family History Relationship Description Onset Age of this Age Resolved Age Notes LastModified by Organization Details LastModified Time Mother Family history of malignant neoplasm [id number] Not available 01/25/2023 12:44:48 Mother Hypertensive disorder [id number] Not available 01/25/2023 12:44:48 Medical History Condition Response ARTHRITIS Y DIABETES, TYPE Y USE OF NSAIDS Y HYPERTENSION Y Gynecological HistoryNo gynecological history recorded. Obstetrics History GPAL:G 0 P 0 0 0 0 Past Encounters Encounter ID Performer Location Encounter Start Date Encounter Closed Date Diagnosis/Indication Diagnosis SNOMED-CT Code Diagnosis ICD10 Code Diagnosis Note [id number] [facility] [address] [place] [address] 01/03/2023 00:00:00 01/03/2023 12:24:59 [id number] [facility] [address] [place] [address] 01/24/2023 00:00:00 01/24/2023 12:12:33 [id number] MD KATELYN [facility] [address] [place] [address] 03/01/2023 15:57:25 03/01/2023 16:21:57 Pain of right wrist 9307119240 31535 M25.531 Osteonecro sis of lunate 210967489 M87.039 remove sutures today. Gave her a well fitted right wrist brace. She can take the brace off to shower and to do gentle range of motion. I will see her back in a month for follow-up an AP lateral x-rays out of the brace of her right wrist [id number] Damon Melo MD [facility] [address] [place] [address] 03/29/2023 15:54:29 03/29/2023 16:58:57 Pain of right wrist 6885743358 51305 M25.531 Osteonecro sis of lunate 451222220 M87.039 patient is x-rayed today looks quite nice with the capitate sitting in the radiolunat e fossa on the AP and the lateral view status post proximal row carpectomy . Patient can use her brace for heavy activity otherwise no need to use the brace I will see her back in 6 months for follow-up x-rays she can continue doing light strengthen ing exercises on her own no need for therapy as she has adequate motion and range of motion of her thumb and fingers already Health Concerns Section Related Observation LastModified by Organization Detai ls LastModified Time None Recorded Concern Status LastModified by Organization Details LastModified Time None Recorded Advance Directives Directive None Recorded Payers Encounter Date Sequence Insurance Name Policy Number Policy Lozano Covered Member ID Lozano Member ID Guarantor Name 03/01/2023 1 [place] Arabella Padron [id number] Arabella Padron 03/01/2023 2 [place] 111 Arabella Padron [id number] Arabella Padron 03/29/2023 1 [place] Arabella Padron [id number] Arabella Padron 03/29/2023 2 [place] 111 Arabella Padron [id number] Arabella Padron Notes Date Note Type Note Provider Name and Address Organization Details Recorded Time 03/01/2023 text/html 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 we did a proximal row carpectomy she comes in today for follow-up doing very nicely at this point Damon Melo MD [address] [place] [address], [phone], [facility] 03/01/2023 17:12:50 03/29/2023 text/html 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
--- OUTSIDE RECORDS SUMMARY | 2025-02-14 04:30 | XMS_ITS | Continuity of Care Document ---
Author Organization [facility] [place] Address [address] [place] [address] Phone Care Team Providers Care Team Coordinator Name Role Phone Raisa Marc Unavailable Unavailable Procedures Procedure Date Eye Exam & Treatment Refraction Eye Exam & Treatment Eye Exam & Treatment Advance Directives Directive Yes / No Effective Date File Name No Information Encounters Encounter Description Practice Location Reason(s) For Visit Diagnoses Date Provider Providers Copied on Encounter [facility], [address] [place] [address] [address], [place], [place], [id number], tel:[phone] [facility] No Information [phone] Tari Hernandez [address], [place], [place], [facility], [place]. tel:[phone] [facility], [address] [place] [address] [address], [place], [place], [id number], [place] tel:[phone] [facility] No Information 1200 9 Tari Hernandez [address], [place], [place], [facility], [place]. tel:[phone] [facility], [address] [place] [address] [address], [place], [place], [id number], tel:[phone] [facility] No Information Leroy-1 [phone] Tari Hernandez [address] , [address], [place], [address], [place]. tel:[phone] Family History Family Member Type Diagnosis Age At Onset No Information Payers Payer name Insurance type Covered republican ID Authoreduin baptiste(s) [place] [id number] Social History Type Description Quantity Date Captured Comments Sex Female Smoking Status No Information Chief Complaint And Reason For Visit No Information Reason For Referral Reason For Referral No Information History Of Present Illness Encounter Date Complaint History Of Prese nt Illness No Information Functional Status Date Functional Assessmen t No Information Instructions Date Instruction Additional Infor mation No Information Assessments Type Assessment Date No Information Patient Care Teams Name Effective Dates (start - stop) Status Members No Information
--- OUTSIDE RECORDS SUMMARY | 2025-02-14 04:30 | XMS_ITS | Clinical Summary ---
Author Organization [facility] Address [address] [place] [address] Care Team Providers Care Occupational Safety Specialist Name Role Phone Aurelio Hercules MD Primary Care Provider [phone] Social History Tobacco Use Types Packs/Day Years Used Date Smoking Tobacco: Never Assessed Comments Unknown Sex and Gender Information Value Date Recorded Sex Assigned at Not on file Legal Sex Female 7:24 PM CDT Gender Identity Not on file Sexual Orientation Not on file Plan of Treatment Health Maintenance Due Date Last Done Comments Colorectal Cancer Screening Colonoscopy (10 Years) 1950 Hepatitis C 02/28/1968 DTaP, Tdap and Td Vaccines (1 - Tdap) 1969 Mammogram Screening 1990 Zoster Vaccines (1 of 2) 02/28/2000 Annual Medicare Wellness Visit 2015 Dexa Scan (General) 2015 Pneumococcal Vaccine: 65+ Years (2 of 2 - PPSV23 or PCV20) 07/16/2016 07/16/2015 COVID-19 Vaccine ( - 2023- season) 2024 Influenza Adult (#1) 2024 12/20/2021, 12/23/2019, 10/29/2018, Additional history exists RSV Immunization or 60+ Years (1 - 1-dose 75+ series) 2025 Meningococcal B Vaccine Aged Out No l onger eligible based on patient's age to complete this topic Meningococcal Vaccine Aged Out No abhay miguel eligible based on patient's age to complete this topic RSV Immunizations Under 20 Months Aged Out No longer eligible based on patient's age to complete this topic Insurance MEDICARE [facility] Care Teams Occupational Safety Specialist Relationship Specialty Start Date End Date Aurelio Hercules MD [address] [place] [id number] PCP - General FAMILY PRACTICE 08/28/24
--- OUTSIDE RECORDS SUMMARY | 2025-02-14 04:31 | XMS_ITS | Clinical Summary ---
Author Organization [facility] [address] Address [address] [place] [address] Care Team Providers Care Forestry Extension Specialist Name Role Phone Aurelio Hercules MD Primary Care Provider [phone] Edis Jeffrey MD Unavailable Miscellaneous, Not In File Unavailable Unava ilable Allergies Active Allergy Reactions Criticality Noted Date Comments Burak Inhibitors Cough Reaction: Cough, Lisinopril Medications aspirin 81 mg chewable tablet Take 1 tablet (81 mg total) by mouth daily Active ferrous sulfate 325 mg (65 mg of elemental iron) tabletIndication s:Iron Deficiency Anemia Take 1 tablet (325 mg total) by mouth daily with breakfast Active atorvastatin (LIPITOR) 80 mg tablet Take 1 tablet (80 mg total) by mouth daily Active calcium carbonate (TUMS) 500 mg (200 mg elemental calcium) chewable tablet Take 2 tablet/chew tab (1,000 mg total) by mouth 3 (three) times a day as needed for heartburn 4 07/17/20 25 Active insulin glargine (LANTUS, SEMGLEE) 100 unit/mL vial for injectionIndicat ions:Diabetes Mellitus Inject 10 Units under the skin nightly 4 09/30/20 25 Active insulin lispro (HumaLOG, ADMELOG) 100 unit/mL pen for injectionIndicat ions:type 2 diabetes mellitus Inject 3 Units under the skin 3 (three) times a day with meals (plus blood glucose mg/dL 150-199: 1 unit, 200-249: 2 units, 250-299: 3 units, 300-349: 4 units, 350 or greater: 5 units. Notify provider for blood glucose greater than 299 mg/dL. ) Refer to After Visit Summary for Sliding Scale Insulin Instructions. 4 Active acetaminophen (TYLENOL) 325 mg tablet Take 2 tablets (650 mg total) by mouth every 6 (six) hours as needed for pain 4 Active peg 400-propylene glycol (SYSTANE) 0.4-0.3 % ophthalmic solution Administer 1 drop into both eyes 3 (three) times a day as needed (dry eyes) 4 Active folic acid (FOLVITE) 1 mg tablet Take 1 tablet (1 mg total) by mouth daily 4 10/01/20 25 Active cyclobenzaprine (FLEXERIL) 5 mg tablet Take 1 tablet (5 mg total) by mouth 3 (three) times a day as needed for muscle spasms 30 tablet 4 Active cefdinir (OMNICEF) 300 mg capsuleIndicatio ns:Other (complete free text reason below),bone infection prophylaxis no stop date Take 1 capsule (300 mg total) by mouth 2 (two) times a day 60 capsule 1 4 Active polyethylene glycol (MIRALAX) 17 gram/dose bulk powder Take 17 g by mouth daily 510 g 4 Active senna-docusate (PERICOLACE) 8.6-50 mg Take 2 tablets by mouth 2 (two) times a day 4 Active methocarbamoL (ROBAXIN) 750 mg tablet Take 1 tablet (750 mg total) by mouth 3 (three) times a day 90 tablet 4 Active escitalopram (LEXAPRO) 20 mg tablet Take 1 tablet (20 mg total) by mouth daily 30 tablet 4 Active losartan (COZAAR) 25 mg tablet Take 1 tablet (25 mg total) by mouth daily 30 tablet 4 Active miconazole 2 % powder Apply topically 2 (two) times a day 70 g 4 Active omeprazole (PriLOSEC) 20 mg capsule Take 1 capsule (20 mg total) by mouth daily 30 capsule 4 Active oxyCODONE (ROXICODONE) 10 mg tabletIndication s:Pain Take 1 tablet (10 mg total) by mouth every 8 (eight) hours as needed for pain 30 tablet 4 Active metFORMIN (GLUCOPHAGE) 500 mg tablet Take 1 tablet (500 mg total) by mouth 2 (two) times a day with meals 60 tablet 4 11/15/20 25 Active Active Problems Problem Noted Date Diagnosed Date Unintentional weight loss 11/04/2024 Assessment & Plan (11/04/2024 12:25 PM VIDEO GAME PROGRAMMER): RD following. Has been losing weight overtime w/ medical issues/hospitalization. Weight prior to hospitalization/surgery 270, now 228.6. Continue to monitor. Anxiety 10/03/2024 Assessment & Plan (10/10/2024 1:24 PM VIDEO GAME PROGRAMMER): Increased with pain 10/09. Did not utilized Hydroxyzine. Have reminded. Feels more controlled today & denies need for adjustment. Will utilize hydroxyzine if needed in future. Assessment & Plan (10/07/2024 12:36 PM VIDEO GAME PROGRAMMER): Remains tearful. Not requiring PRN Atrax. Continue Lexapro. Assessment & Plan (10/03/2024 5:35 PM VIDEO GAME PROGRAMMER): Started on Lexapro 10/02. Continues ot have anixety. Start Hydroxyzine PRN o=for anixety. Monitor. Depression 10/02/2024 Assessment & Plan (11/06/2024 6:03 PM VIDEO GAME PROGRAMMER): This is subacute and improved. She is no longer tearful and her affect seems to be more cheerful and forward looking. We will continue escitalopram 30 mg daily. Assessment & Plan (11/01/2024 1:59 PM VIDEO GAME PROGRAMMER): Her affect is flat and she is weepy. She agrees to increase her escitalopram from 20 to 30 mg daily. The scripting is entered as an order Assessment & Plan (10/17/2024 11:15 AM VIDEO GAME PROGRAMMER): Continue Lexapro 20mg. She continues to be very tearful. Have educated will take 2-4 weeks for max benefits of medication. When asked why she is crying she states, I do not know, and laughs. Assessment & Plan (10/15/2024 7:17 PM VIDEO GAME PROGRAMMER): Recently started on Lexapro 10mg. Will increase to 20mg. Monitor. Assessment & Plan (10/02/2024 5:49 PM VIDEO GAME PROGRAMMER): She is a bit tearful and depressed with a flat affect. On the day of her admission to the hospital she found that her best friend had suddenly . Likewise she has had several family members in a short time. She is asking for something to help with her nerves and depression. She feels anxious. 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 Will need fu with ID/NSY before dc abx. Assessment & Plan (10/28/2024 1:32 PM VIDEO GAME PROGRAMMER): IV abx to be complete 11/02 & then will transition to PO. Has ID appt 10/29 telehealth. PICC to be dc after completion. Patient still needs NSY appt. Dtr has to call to make. Patient will remind dtr to call today. She reports her pain is much better. Is only requiring PRN with tx. Have changed script to PRN q8h. Continue Tyl PRN. Decrease Robaxin to 750mg TID. She does self-limit herself with tx d/t fear of pain. Tx to work on transfers, standing & SS to discuss placement. Assessment & Plan (10/15/2024 7:16 PM VIDEO GAME PROGRAMMER): Continue IV abx, labs as ordered. Will fu with SS on status of appts. Pain controlled. PT/OT. Assessment & Plan (10/10/2024 1:24 PM VIDEO GAME PROGRAMMER): Patient is suppose to call NSY to schedule appt. SS working on ID appt. Patient did have increased pain to back with muscle spasms & anxiety 10/09. Today reports improved & believed from sitting up in chair too long. She is taking Tyl 650mg q6h PRN, Lidoderm, Methocarbamol 1500 TID rosenda + oxycodone 10mg q4h rosenda. Discussed changing regimen & agreeable to holding off. Have reminded to utilize PRN Tyl & will add PRN muscle relaxer also. If continues consider trialing low-dose Lyrica as she is unable to take gabapentin. Of note she did have some drainage to lumbar incision on bed, incision assessed, well approximated with no concerns. Monitor. Assessment & Plan (10/07/2024 12:32 PM VIDEO GAME PROGRAMMER): IV abx 11/02 with weekly labs & FU with ID outpt, Dr. Gibbons. Will have SS make appt. Pain controlled. Dtr did ask for Gabapentin to be dc as causes her to be loopy. Assessment & Plan (10/03/2024 5:34 PM VIDEO GAME PROGRAMMER): Continue IV abx until 11/02 followed by PO. FU ID. Weekly labs. Oxy, Claude, Tyl for pain. Lovenox for DVT prop. Assessment & Plan (10/02/2024 5:49 PM VIDEO GAME PROGRAMMER): This is subacute and currently stable. Follow up labs ordered. Continue cefazolin 2 g IV piggyback every 8 hours through November 02. Thereafter, she is to continue cefdinir 300 mg b.i.d. for 180 days. Of course she is to follow up with Infectious Disease and primary. At the present time she is also taking gabapentin 100 mg daily p.r.n. and oxycodone 10 mg every 4 hours around the clock. She wants to coincide her therapy sessions with intake of her analgesic and the head therapist is so advised. VENICE (obstructive sleep apnea) 09/20/2024 Microcytic anemia 09/20/2024 Assessment & Plan (10/15/2024 7:13 PM VIDEO GAME PROGRAMMER): H&H stable. Monitor. Assessment & Plan (10/02/2024 5:47 PM VIDEO GAME PROGRAMMER): Continue ferrous sulfate as scripted Status post lumbar spine edwina bertha for decompression of spinal cord 09/20/2024 Assessment & Plan (11/04/2024 12:21 PM VIDEO GAME PROGRAMMER): Pain controlled with oxycodone before tx & PRN, Robaxin & Tyl PRN. She has NSY appt 12/04. Has completed IV abx, currently on PO. Assessment & Plan (10/22/2024 12:48 PM VIDEO GAME PROGRAMMER): Pain is controlled. Continues on abx as prescribed. Will transition to PO abx 11/02. ID/NSY fu pending - SS has been working on. Has only been taking oxy during day. Have adjusted to QID to be given at 0600, 1200, 1800, 2200. PRN Tyl & muscle relaxers in place also. Assessment & Plan (10/17/2024 11:14 AM VIDEO GAME PROGRAMMER): NSY fu scheduled per SS - unsure of appt. ID appt still pending. She does have PO abx orders to start after IV abx. Continue rosenda oxy a4h, she is refusing if not needed. PRN Tyl in place as well as rosenda & PRN muscle relaxers. Assessment & Plan (10/07/2024 12:34 PM VIDEO GAME PROGRAMMER): Needs surgical fu with Dr. Jeffrey & orders for staple removal. Concerns for drainage to incision over weekend. Assessed & approxiated, dry. Monitor. Bacteremia 09/19/2024 Adhesive capsulitis of shoulder 06/27/2024 Slow transit constipation 06/26/2024 Assessment & Plan (11/04/2024 12:23 PM VIDEO GAME PROGRAMMER): Constipation resolved with large dose of Miralax. Now has diarrhea but reports improved today. Will restart Miralax BID + Senna BID. Could benefit possibly from Linzess. Monitor closely to prevent constipation reoccurring. Assessment & Plan (11/01/2024 1:58 PM VIDEO GAME PROGRAMMER): She is upset she has not had a bowel movement by her accounting in 8 days. She does note that during her toilet hygiene there is a smear on the tissue. She is frustrated that nothing seems to be helping. I have suspended her lactulose MiraLax, sennosides with docusate (all below I agree with all these measures) and I have ordered a 1 time dose of MiraLax as 7 packets of 17 g in 32 oz of water or juice to be sipped over the next 8 hours. I have asked the nurses to repeat this exercise of intake Monday morning if they are still no effective bowel movement. I have also asked to be notified by Monday morning if there was no response to the total consumption. I would assume, that we will be resuming 1 or more of her softeners once she has purged her bowel. Assessment & Plan (10/28/2024 1:31 PM VIDEO GAME PROGRAMMER): BM stable. Continue current regimen. Assessment & Plan (10/22/2024 12:45 PM VIDEO GAME PROGRAMMER): Patient continues to report constipation. Currently taking Miralax daily, Senna- P 2 tab qd. Will increase Senna-P to 2 tabs BID. Monitor. Assessment & Plan (10/15/2024 7:21 PM VIDEO GAME PROGRAMMER): Continue Senna-P, add miralax daily. PRN MOM in place BID also. Assessment & Plan (06/27/2024 8:40 AM CDT): Likely related to opioid use and minimal activity. Had great response to meds yesterday. Will change miralax to prn. Counseled the patient that if she continues to use opioids, she should at least take senna or miralax daily going forward HTN (hypertension) 06/23/2024 Assessment & Plan (11/06/2024 6:02 PM VIDEO GAME PROGRAMMER): This is currently stable. We will continue to monitor serial vital signs. We will continue scripted losartan. Assessment & Plan (11/01/2024 2:00 PM VIDEO GAME PROGRAMMER): This is currently stable. Please continue scripted losartan Assessment & Plan (10/02/2024 5:45 PM VIDEO GAME PROGRAMMER): This is chronic and currently stable. Monitor vital signs for trending. Continue losartan 25 mg daily Assessment & Plan (06/27/2024 8:40 AM CDT): Doing well off ARB so will hold at discharge HLD (hyperlipidemia) 06/23/2024 Assessment & Plan (10/02/2024 5:46 PM VIDEO GAME PROGRAMMER): This is chronic and stable. Please continue atorvastatin 80 mg daily Assessment & Plan (06/25/2024 9:29 AM CDT): - continue home statin T2DM (type 2 diabetes mellitus) 06/23/2024 Assessment & Plan (11/15/2024 3:44 PM VIDEO GAME PROGRAMMER): A1c 7.6. Will dc insulin, restart Metformin 500mg BID & fu with PCP outpt for management. Assessment & Plan (11/06/2024 6:03 PM VIDEO GAME PROGRAMMER): We will continue insulin glargine and insulin lispro. We will continue aspirin 81 mg daily and atorvastatin 80 mg daily. Assessment & Plan (10/10/2024 1:19 PM VIDEO GAME PROGRAMMER): BS stable, 150-180 Assessment & Plan (10/07/2024 12:37 PM VIDEO GAME PROGRAMMER): A1c 7.6. Currently taking Lispro 3u TIDAC, Lantus 10u. No requiring SSI. Will dc. Assessment & Plan (10/02/2024 5:46 PM VIDEO GAME PROGRAMMER): This is chronic and stable. Please continue insulin glargine and insulin lispro as scripted Assessment & Plan (06/27/2024 8:41 AM CDT): - home regimen: metformin 1g BID; SSI inpt Palpitations 06/08/2011 Resolved Problems Problem Noted Date Diagnosed Date Resolved Date Acute headache 10/03/2024 10/07/2024 Assessment & Plan (10/03/2024 5:33 PM VIDEO GAME PROGRAMMER): Monitor. Stoney CELION is what she uses at home. Utiilize and montior. Hypomagnesemia 09/21/2024 10/07/2024 Hypophosphatemia 09/21/2024 10/07/2024 Complicated UTI (urinary tract infection) 09/20/2024 10/03/2024 Acute renal failure (ARF) 09/17/2024 Assessment & Plan (10/02/2024 5:46 PM VIDEO GAME PROGRAMMER): Follow up lab ordered Radiculopathy 07/12/2024 10/03/2024 Closed fracture of metatarsal bone 06/27/2024 10/03/2024 Disorder of bursae of shoulder region 06/27/2024 10/03/2024 Disorder of rotator cuff 06/27/202405/2024 Fracture of lower leg 06/27/20242023 Shoulder joint pain 06/27/2024 10/03/20 24 Leg swelling 06/23/2024 06/24/2024 Assessment & Plan (06/23/2024 1:14 AM CDT): Patient noted to have BLE swelling to mid shins on exam. She reports this has occurred over past couple weeks with decreased mobility and pending most of her day sitting in a chair. Improved with elevation. Suspect dependent edema, though recent TTE 03/2024 did show G1DD. - trial compression stockings Iron deficiency 06/23/2024 10/15/2024 Assessment & Plan (06/23/2024 9:10 AM CDT): Hgb 9.9. Labs c/w Fe deficiency anemia. B12/folate WNL. - cont iron supplements Lumbar back pain with radicu lopathy affecting lower extremity 06/22/2024 10/03/2024 Subacute back pain 06/22/2024 Assessment & Plan (06/27/2024 8:40 AM CDT): Continues to improve significantly. Will stop po prednisone today. Continue current doses of robaxin, gabapentin, lidocaine patches, tylenol with prn po oxycodone - very low suspicion for any urgent surgical need given time course of symptoms, nl neuro exam (when pain controlled) and improvement after nerve root injection so will hold off MRI for now though can be considered as outpt - will need outpt spine surgery referral to consider further imaging/surgical intervention if fails to respond further to conservative measures Plan discharge to rehab today Avascular necrosis of lunate 03/01/2023 10/03/2024 Right wrist pain 03/01/2023 10/03/2024 Tachycardia, unspecified 06/08/2011 Encounters Date Type Department Care Team Description 11/18/2024 Telephone [facility] Post Acute Care [address] [facility] [address] [place] [id number] Bebe Aguillon MA from Last 3 Months Immunizations Immunization Administration Dates Next Due Hep A, Adult 08/25/2006 Influenza, Quadrivalent, Split, Intramuscular ,10/29/2018 Influenza, Trivalent, High D ose, Split, Preservative Free, Intramuscular 12/23/2019,09/06/2017 Influenza, Trivalent, IM (MDV) 09/15/2014 Pneumococcal Conjugate PCV 13 07/16/2015 Surgical History Surgery Date Site/Laterality Comments OTHER SURGICAL HISTORY B/L carpal tunnel OTHER SURGICAL HISTORY B/L knee replacements APPENDECTOMY Appendectomy TONSILLECTOMY/ADENOIDECTOMY tonsillectomy and adenoidectomy FL UPPER GI AIR CONTRAST W KUB 06/25/2024 Left Medical History Medical History Date Comments Hypertension Hypertension Hx Other Medical dyslipidemia Diabetes mellitus (HCC) diabetes Adiposity obesity Depression depression Osteoarthritis osteoarthritis Gastroesophageal reflux disease GERD Family History Medical History Relation Name Comments Heart attack Brother 2 Myocardial Infa rction; Heart attack Father Myocardial Infa rction; Cause of : Myocardial Infarction Coronary artery disease Mother Daniela argueta Artery Bypass Graft; Relation Name Status Comments Brother 1 Alive Brother 2 Father (Age 60) Mother Social History Tobacco Use Types Packs/Day Years Used Date Smoking Tobacco: Never Smokeless Tobacco: Never Tobacco Cessation:Counseling Given: Not Answered Alcohol Use Standard Drinks/Week Comments Yes 0 (1 standard drink = 0.6 oz pur e alcohol) [facility] Utilities Answer Date Recorded In the past 12 months has e [employer], gas, oil, or water Friend Traveler threatened to shut off services in your home? No 09/20/2024 Social Connection and Isolat ion Panel [NHANES] Answer Date Recorded In a typical week, how many times do you talk on the phone with family, friends, or neighbors? More than three times a week 09/20/2024 How often do you get togethe r with friends or relatives? More than three times a week 09/20/2024 How often do you attend chur ch or hoahaoism services? 1 to 4 times per year 09/20/2024 Do you belong to any clubs o r organizations such as yarsanism groups, unions, fraternal or athletic groups, or school groups? Yes 09/20/2024 How often do you attend meet ings of the clubs or organizations you belong to? 1 to 4 times per year 09/20/2024 Are you , , di vorced, , never , or living with a partner? 09/20/2024 AUDIT-C Answer Date Recorded Q1: How often do you have a drink containing alc ohol? Monthly or less 09/17/2024 Q2: How many drinks containi ng alcohol do you have on a typical day when you are drinking? 1 or 2 09/17/2024 Q3: How often do you have si x or more drinks on one occasion? Never 09/17/2024 Overall Financial Resource Strain (CARDIA) Answe r Date Recorded How hard is it for you to pa y for the very basics like food, housing, medical care, and heating? Not very hard 09/20/2024 Hunger Vital Sign Answer Date Recorded Within the past 12 months, y ou worried that your food would run out before you got the money to buy more. Never true 09/20/20 24 Within the past 12 months, t he food you bought just didn't last and you didn't have money to get more. Never true 09/20/2024 PRAPARE - Transportation Answer Date Re corded In the past 12 months, has l ack of transportation kept you from medical appointments or from getting medications? No 08/28 In the past 12 months, has l ack of transportation kept you from meetings, work, or from getting things needed for daily living? No 09/20/2024 Housing Stability Vital Sign Answer Karl e Recorded In the last 12 months, was t here a time when you were not able to pay the mortgage or rent on time? No 09/20/2024 In the past 12 months, how m any times have you moved where you were living? 0 09/20/2024 At any time in the past 12 m [facility], were you homeless or living in a [place] facility (including now)? No 09/20/2024 Personal Safety Answer Date Recorded Have you ever been in or are you currently in a harmful physical or emotional relationship or is someone making you feel afraid or unsafe? Denies 09/20/2024 Comments No Sex and Gender Information Value Date Recorded Sex Assigned at Not on file Legal Sex Female 3:52 AM VIDEO GAME PROGRAMMER Gender Identity Not on file Sexual Orientation Not on file Obstetrics History Last Filed Vital Signs Vital Sign Reading Time Taken Comments Blood Pressure 136/71 11/14/2024 6:09 PM VIDEO GAME PROGRAMMER Pulse 88 11/14/2024 6:09 PM VIDEO GAME PROGRAMMER Temperature 36.4 C (97.5 F) 10/02/2024 5:54 PM VIDEO GAME PROGRAMMER Respiratory Rate 18 10/02/2024 9:50 AM VIDEO GAME PROGRAMMER Oxygen Saturation 95% 10/02/2024 9:50 AM VIDEO GAME PROGRAMMER Inhaled Oxygen Concentration - - Weight 116 kg (255 lb 11.7 oz) 09/20/2024 5:17 P M CDT Height 170.2 cm (5' 7 ) 09/20/2024 8:15 AM CDT Body Mass Index 40.05 09/20/2024 8:15 AM CDT Plan of Treatment Health Maintenance Due Date Last Done Comments Albumin Creatinine Ratio, Urine 1950 Breast Cancer Screening-Mammogram 1950 Colon Cancer Screening-Colonoscopy 1950 Depression Screening 1950 Hepatitis C Screening 1950 Osteoporosis Screening-Bone Density Scan 1950 Dilated Eye Exam 1950 Foot Exam 1950 Lipid Panel 1950 DTaP/Tdap/Td Vaccine (1 - Tdap) 1961 Hepatitis B Screening 02/28/1968 Zoster Vaccine (1 of 2) 02/28/2000 Well Visit 65+ 2015 Pneumococcal vaccine 65+ (2 of 2 - PPSV23) 09/10/2015 07/16/2015 Influenza Vaccine (#1) 2024 2, 12/23/2019, 10/29/2018, Additional history exists Hemoglobin A1C 03/18/2025 09/17/2024, 06/22/2024 Fall Risk Assessment 09/30/2025 09/30/2024 eGFR 11/04/2025 11/04/2024, 1212/2023, 10/21/2024, Additional history exists Medical Devices Implanted Type Area Health Sciences Manager Device Identifier Shelf Expiration Date Model / Serial / Lot Depuy Synthes Spine Substitute Bone Graft Fibergraft Gps Medium Putty 6cc [id number] - [id number] Implanted:Qty: 1 on 07/14/2024 by Edis Jeffrey MD at [facility] N/A: Back Depuy Synthes Spine [id number] / / Depuy Synthes Spine Expedium 6.5mm 50mm Polyaxial Spine Screw Bone Titanium 5.5mm Kyler [id number] - [id number] Implanted:Qty: 4 on 07/14/2024 by Edis Jeffrey MD at [facility] N/A: Back Depuy Synthes Spine [id number] / / Depuy Synthes Spine Expedium 1 Inner Monoaxial Spine Screw Set Titanium [id number] - [id number] Implanted:Qty: 4 on 07/14/2024 by Edis Jeffrey MD at [facility] N/A: Back Depuy Synthes Spine [id number] / / Depuy Synthes Spine Expedium 5.5mm 40mm Line Prebent Kyler Spinal Titanium Nonsterile [id number] - [id number] Implanted:Qty: 2 on 07/14/2024 by Edis Jeffrey MD at [facility] N/A: Back Depuy Synthes Spine [id number] / / Procedures Procedure Name Priority Date/Time Associated Diagnosis Comments EGFR Routine 11/04/2024 6:26 AM VIDEO GAME PROGRAMMER HEMOGLOBIN A1C Add-On 09/17/2024 8:17 AM CDT from Last 3 Months or Most Recently Relevant to Health Maintenance Results * eGFR (11/04/2024 6:26 AM VIDEO GAME PROGRAMMER) eGFR >90 >=60 mL/min/1. 73 m2 [facility] Comment: Interpretive Data Reference Interval Normal >/= 90 mL/min/1.73m2 Mildly decreased* 60 - 89 mL/min/1.73m2 Mildly to moderately decreased 45 - 59 mL/min/1.73m2 Moderately to severely decreased 30 - 44 mL/min/1.73m2 Severely decreased 15 - 29 mL/min/1.73m2 Kidney Failure < 15 mL/min/1.73m2 *Relative to young adult level Estimated glomerular filtration rate is determined by the 2020 CKD-EPI equation recommended by the National Kidney Foundation (A Unifying Approach to GFR Estimation: Recommendations of the NKF-ASK Task Force on Reassessing the Inclusion of Race in Diagnosing Kidney Disease, JASN 2020). The CKD-EPI equation should not be used for patients with unstable renal function and has not been validated in children and those over 70. Current interpretive data was last reviewed 2021. [facility], [address] [place] [address]., [id number] Blood 11/04/2024 6:26 AM VIDEO GAME PROGRAMMER 11/04/2024 9:54 AM VIDEO GAME PROGRAMMER us Jeannine Rivera PLASTER[facility] LAB BLOOD ORDERABLES Final Result [facility] [address] Department [place] [address] * (ABNORMAL) Hemoglobin A1c (09/17/2024 8:17 AM CDT) Hgb A1C 7.6(H) 4.0 - 5.6 % Comment:Testing performed by : [facility], [address] [place] [address]., [id number] Estimated Average Glucose 171 mg/dL [facility] Comment: The ADA recommends reporting an estimated Average Glucose (eAG) with all Hemoglobin A1c results using the equation derived from a study of 507 normal and diabetic adults. Minority populations were underrepresented and children were not included. (Diabetes Care 31:0672-4119, 2008). The eAG is not equivalent to a fasting glucose. Testing performed by: [facility], [address] [place] [address]., [id number] Blood 09/17/2024 8:17 AM CDT 09/17/2024 8:39 AM CDT Meghan Syed DO LAB BLOOD ORDERABLES Elsy rodríguez Result [facility] [address] [facility] Department [place] [address] from Last 3 Months or Most Recently Relevant to Health Maintenance Insurance MEDICARE MEDICARE [facility] FEDERAL MEDICARE [facility] Advance Directives For more information, please contact: [phone] * Full Code (Latest Code Status on File) Date Activated Date Inactivated Comments 09/20/2024 10:44 PM 09/30/2024 6:48 PM * Full Code Date Activated Date Inactivated Comments 09/20/2024 2:03 AM 09/20/2024 10:44 PM * Full Code Date Activated Date Inactivated Comments 09/17/2024 4:30 AM 09/19/2024 6:48 PM * Full Code Date Activated Date Inactivated Comments 07/14/2024 11:48 AM 07/17/2024 10:03 PM * Full Code Date Activated Date Inactivated Comments 07/12/2024 9:09 PM 07/14/2024 11:48 AM Care Teams Forestry Extension Specialist Relationship Specialty Start Date End Date Aurelio Hercules MD [address] [place] [id number] PCP - General 01/16/14 [place] [id number] [place] [id number] Consulting Physician Orthopedic Surgery 09/24/24 Miscellaneous, Not In File 09/30/24
--- OUTSIDE RECORDS SUMMARY | 2025-02-14 04:31 | XMS_ITS | Referral Summary ---
Author Organization [facility] [address] Address [address] [place] [address] Care Team Providers Care Activities Therapist Name Role Phone Aurelio Hercules MD Primary Care Provider [phone] Edis Jeffrey MD Unavailable [phone] Miscellaneous, Not In File Unavailable Unava ilable Encounters Date Type Department Care Team Description 11/18/2024 Telephone [facility] Post Acute Care [address] [address] Bebe Aguillon MA from Last 3 Months Allergies Active Allergy Reactions Criticality Noted Date [...] 11/04/2024 Assessment & Plan (11/04/2024 12:25 PM CASH CONTROLLER): RD following. Has been losing weight overtime w/ medical issues/hospitalization. Weight prior to hospitalization/surgery 270, now 228.6. Continue to monitor. Anxiety 10/03/2024 Assessment & Plan (10/10/2024 1:24 PM CASH CONTROLLER): Increased with pain 10/09. Did not utilized Hydroxyzine. Have reminded. Feels more controlled today & denies need for adjustment. Will utilize hydroxyzine if needed in future. Assessment & Plan (10/07/2024 12:36 PM CASH CONTROLLER): Remains tearful. Not requiring PRN Atrax. Continue Lexapro. Assessment & Plan (10/03/2024 5:35 PM CASH CONTROLLER): Started on Lexapro 10/02. Continues ot have anixety. Start Hydroxyzine PRN o=for anixety. Monitor. Depression 10/02/2024 Assessment & Plan (11/06/2024 6:03 PM CASH CONTROLLER): This is subacute and improved. She is no longer tearful and her affect seems to be more cheerful and forward looking. We will continue escitalopram 30 mg daily. Assessment & Plan (11/01/2024 1:59 PM CASH CONTROLLER): Her affect is flat and she is weepy. She agrees to increase her escitalopram from 20 to 30 mg daily. The scripting is entered as an order Assessment & Plan (10/17/2024 11:15 AM CASH CONTROLLER): Continue Lexapro 20mg. She continues to be very tearful. Have educated will take 2-4 weeks for max benefits of medication. When asked why she is crying she states, I do not know, and laughs. Assessment & Plan (10/15/2024 7:17 PM CASH CONTROLLER): Recently started on Lexapro 10mg. Will increase to 20mg. Monitor. Assessment & Plan (10/02/2024 5:49 PM CASH CONTROLLER): She is a bit tearful and depressed [...] 09/20/2024 Assessment & Plan (11/15/2024 3:45 PM CASH CONTROLLER): IV abx completed 11/02, transitioned to PO abx for suppression. Will need fu with ID/NSY before dc abx. Assessment & Plan (10/28/2024 1:32 PM CASH CONTROLLER): IV abx to be complete 11/02 & [...] placement. Assessment & Plan (10/15/2024 7:16 PM CASH CONTROLLER): Continue IV abx, labs as ordered. Will fu with SS on status of appts. Pain controlled. PT/OT. Assessment & Plan (10/10/2024 1:24 PM CASH CONTROLLER): Patient is suppose to call NSY to [...] Monitor. Assessment & Plan (10/07/2024 12:32 PM CASH CONTROLLER): IV abx 11/02 with weekly labs & FU with ID outpt, Dr. Gibbons. Will have SS make appt. Pain controlled. Dtr did ask for Gabapentin to be dc as causes her to be loopy. Assessment & Plan (10/03/2024 5:34 PM CASH CONTROLLER): Continue IV abx until 11/02 followed by PO. FU ID. Weekly labs. Oxy, Claude, Tyl for pain. Lovenox for DVT prop. Assessment & Plan (10/02/2024 5:49 PM CASH CONTROLLER): This is subacute and currently stable. Follow [...] 09/20/2024 Assessment & Plan (10/15/2024 7:13 PM CASH CONTROLLER): H&H stable. Monitor. Assessment & Plan (10/02/2024 5:47 PM CASH CONTROLLER): Continue ferrous sulfate as scripted Status post lumbar spine edwina bertha for decompression of spinal cord 09/20/2024 Assessment & Plan (11/04/2024 12:21 PM CASH CONTROLLER): Pain controlled with oxycodone before tx & PRN, Robaxin & Tyl PRN. She has NSY appt 12/04. Has completed IV abx, currently on PO. Assessment & Plan (10/22/2024 12:48 PM CASH CONTROLLER): Pain is controlled. Continues on abx as prescribed. Will transition to PO abx 11/02. ID/NSY fu pending - SS has been working on. Has only been taking oxy during day. Have adjusted to QID to be given at 0600, 1200, 1800, 2200. PRN Tyl & muscle relaxers in place also. Assessment & Plan (10/17/2024 11:14 AM CASH CONTROLLER): NSY fu scheduled per SS - unsure of appt. ID appt still pending. She does have PO abx orders to start after IV abx. Continue rosenda oxy a4h, she is refusing if not needed. PRN Tyl in place as well as rosenda & PRN muscle relaxers. Assessment & Plan (10/07/2024 12:34 PM CASH CONTROLLER): Needs surgical fu with Dr. Jeffrey & orders for staple removal. Concerns for drainage to incision over weekend. Assessed & approxiated, dry. Monitor. Bacteremia 09/19/2024 Adhesive capsulitis of shoulder 06/27/2024 Slow transit constipation 06/26/2024 Assessment & Plan (11/04/2024 12:23 PM CASH CONTROLLER): Constipation resolved with large dose of Miralax. Now has diarrhea but reports improved today. Will restart Miralax BID + Senna BID. Could benefit possibly from Linzess. Monitor closely to prevent constipation reoccurring. Assessment & Plan (11/01/2024 1:58 PM CASH CONTROLLER): She is upset she has not had [...] bowel. Assessment & Plan (10/28/2024 1:31 PM CASH CONTROLLER): BM stable. Continue current regimen. Assessment & Plan (10/22/2024 12:45 PM CASH CONTROLLER): Patient continues to report constipation. Currently taking Miralax daily, Senna- P 2 tab qd. Will increase Senna-P to 2 tabs BID. Monitor. Assessment & Plan (10/15/2024 7:21 PM CASH CONTROLLER): Continue Senna-P, add miralax daily. PRN MOM [...] 06/23/2024 Assessment & Plan (11/06/2024 6:02 PM CASH CONTROLLER): This is currently stable. We will continue to monitor serial vital signs. We will continue scripted losartan. Assessment & Plan (11/01/2024 2:00 PM CASH CONTROLLER): This is currently stable. Please continue scripted losartan Assessment & Plan (10/02/2024 5:45 PM CASH CONTROLLER): This is chronic and currently stable. Monitor vital signs for trending. Continue losartan 25 mg daily Assessment & Plan (06/27/2024 8:40 AM CDT): Doing well off ARB so will hold at discharge HLD (hyperlipidemia) 06/23/2024 Assessment & Plan (10/02/2024 5:46 PM CASH CONTROLLER): This is chronic and stable. Please continue atorvastatin 80 mg daily Assessment & Plan (06/25/2024 9:29 AM CDT): - continue home statin T2DM (type 2 diabetes mellitus) 06/23/2024 Assessment & Plan (11/15/2024 3:44 PM CASH CONTROLLER): A1c 7.6. Will dc insulin, restart Metformin 500mg BID & fu with PCP outpt for management. Assessment & Plan (11/06/2024 6:03 PM CASH CONTROLLER): We will continue insulin glargine and insulin lispro. We will continue aspirin 81 mg daily and atorvastatin 80 mg daily. Assessment & Plan (10/10/2024 1:19 PM CASH CONTROLLER): BS stable, 150-180 Assessment & Plan (10/07/2024 12:37 PM CASH CONTROLLER): A1c 7.6. Currently taking Lispro 3u TIDAC, Lantus 10u. No requiring SSI. Will dc. Assessment & Plan (10/02/2024 5:46 PM CASH CONTROLLER): This is chronic and stable. Please continue insulin glargine and insulin lispro as scripted Assessment & Plan (06/27/2024 8:41 AM CDT): - home regimen: metformin 1g BID; SSI inpt Palpitations 06/08/2011 Resolved Problems Problem Noted Date Diagnosed Date Resolved Date Acute headache 10/03/2024 10/07/2024 Assessment & Plan (10/03/2024 5:33 PM CASH CONTROLLER): Monitor. Stoney PRN is what she uses at home. Utiilize and montior. Hypomagnesemia 09/21/2024 10/07/2024 Hypophosphatemia 09/21/2024 10/07/2024 Complicated UTI (urinary tract infection) 09/20/2024 10/03/2024 Acute renal failure (ARF) 09/17/2024 Assessment & Plan (10/02/2024 5:46 PM CASH CONTROLLER): Follow up lab ordered Radiculopathy 07/12/2024 10/03/2024 [...] wrist pain 03/01/2023 10/03/2024 Tachycardia, unspecified 06/08/2011 Immunizations Immunization Administration Dates Next Due Hep A, Adult 08/25/2006 Influenza, Quadrivalent, Split, Intramuscular ,10/29/2018 Influenza, Trivalent, High D ose, Split, Preservative Free, Intramuscular 12/23/2019,09/06/2017 Influenza, Trivalent, IM (MDV) 09/15/2014 Pneumococcal Conjugate PCV 13 07/16/2015 Social History Tobacco Use Types Packs/Day Years Used Date Smoking Tobacco: Never Smokeless Tobacco: Never Tobacco Cessation:Counseling Given: Not Answered Alcohol Use Standard Drinks/Week Comments Yes 0 (1 standard drink = 0.6 oz pur e alcohol) [facility] Utilities Answer Date Recorded In the past 12 months has e TEEspy, gas, oil, or water [facility] threatened to shut off services in your [...] any time in the past 12 m [facility], were you homeless or living in a fci (including now)? No 09/20/2024 Personal Safety Answer Date Recorded Have you ever been in or are you currently in a harmful physical or emotional relationship or is someone making you feel afraid or unsafe? Denies 09/20/2024 Comments No Sex and Gender Information Value Date Recorded Sex Assigned at Not on file Legal Sex Female 3:52 AM CASH CONTROLLER Gender Identity Not on file Sexual Orientation Not on file Last Filed Vital Signs Vital Sign Reading Time Taken Comments Blood Pressure 136/71 11/14/2024 6:09 PM CASH CONTROLLER Pulse 88 11/14/2024 6:09 PM CASH CONTROLLER Temperature 36.4 C (97.5 F) 10/02/2024 5:54 PM CASH CONTROLLER Respiratory Rate 18 10/02/2024 9:50 AM CASH CONTROLLER Oxygen Saturation 95% 10/02/2024 9:50 AM CASH CONTROLLER Inhaled Oxygen Concentration - - Weight 116 kg (255 lb 11.7 oz) 09/20/2024 5:17 P M CDT Height 170.2 cm (5' 7 ) 09/20/2024 8:15 AM CDT Body Mass Index 40.05 09/20/2024 8:15 AM CDT Plan of Treatment Not on file Medical Devices Implanted Type Area Licensing Coordinator Device Identifier Shelf Expiration Date Model / Serial / Lot Depuy Synthes Spine Substitute Bone Graft Fibergraft Gps Medium Putty 6cc [id number] - [id number] Implanted:Qty: 1 on 07/14/2024 by Edis Jeffrey MD at [facility] N/A: Back Depuy Synthes Spine [id number] / / Depuy Synthes Spine Expedium 6.5mm 50mm Polyaxial Spine Screw Bone Titanium 5.5mm Kyler [id number] - [id number] Implanted:Qty: 4 on 07/14/2024 by Edis Jeffrey MD at [facility] N/A: Back Depuy Synthes Spine [id number] / / Depuy Synthes Spine Expedium 1 Inner Monoaxial Spine Screw Set Titanium [id number] - [id number] Implanted:Qty: 4 on 07/14/2024 by Edis Jeffrey MD at [facility] N/A: Back Depuy Synthes Spine [id number] / / Depuy Synthes Spine Expedium 5.5mm 40mm Line Prebent Kyler Spinal Titanium Nonsterile [id number] - [id number] Implanted:Qty: 2 on 07/14/2024 by Edis Jeffrey MD at [facility] N/A: Back Depuy Synthes Spine [id number] / / Procedures Procedure Name Priority Date/Time Associated Diagnosis Comments EGFR Routine 11/04/2024 6:26 AM CASH CONTROLLER HEMOGLOBIN A1C Add-On 09/17/2024 8:17 AM CDT from Last 3 Months or Most Recently Relevant to Health Maintenance Results * eGFR (11/04/2024 6:26 AM CASH CONTROLLER) eGFR >90 >=60 mL/min/1. 73 m2 [facility] [...] Current interpretive data was last reviewed 2021. [facility], [address] [place] [address], [place]., [address] Blood 11/04/2024 6:26 AM CASH CONTROLLER 11/04/2024 9:54 AM CASH CONTROLLER us Jeannine Rivera [employer] REPRESENTATIVE LAB BLOOD ORDERABLES Final Result [facility] [address] [facility] Department [place] [address] * (ABNORMAL) Hemoglobin A1c (09/17/2024 8:17 AM CDT) [facility] Signature Hgb A1C 7.6(H) 4.0 - 5.6 % Comment:Testing performed by : [facility], [address] [place] [address]., [address] Estimated Average Glucose 171 mg/dL [facility] Comment: The ADA recommends reporting an estimated Average Glucose (eAG) with all Hemoglobin A1c results using the equation derived from a study of 507 normal and diabetic adults. Minority populations were underrepresented and children were not included. (Diabetes Care 31:5176-8363, 2008). The eAG is not equivalent to a fasting glucose. Testing performed by: [facility], [address] [place] [address]., [address] Blood 09/17/2024 8:17 AM CDT 09/17/2024 8:39 AM CDT Meghan Syed DO LAB BLOOD ORDERABLES Elsy l Result [facility] [address] [facility] Department [place] [address] from Last 3 Months or Most Recently Relevant to Health Maintenance Insurance MEDICARE MEDICARE [facility]AL MEDICARE [facility] Advance Directives For more information, please contact: [phone] * Full Code (Latest Code Status on [...] 9:09 PM 07/14/2024 11:48 AM Care Teams Activities Therapist Relationship Specialty Start Date End Date Aurelio Hercules MD [address] [place] [id number] PCP - General 01/16/14 [place] [address] [place] [id number] Consulting Physician Orthopedic Surgery 09/24/24 Miscellaneous, Not In File 09/30/24
--- NOTE | 2025-02-14 04:36 | ED.GENADULT ---
HPI - General Adult General Chief complaint: Extremity Injury, Lower Stated complaint: hip pain, fall Time Seen by Provider: 02/14/25 03:50 History of Present Illness HPI narrative: Patient 74-year-old female who presents emergency department with chief complaint of left hip pain. Patient reports that she has prior history of bilateral knee replacements and a been done by Dr. Miguel patient states that she slipped and fell this evening and reports pain in her left hip Related Data Home Medications ?Medication ?Instructions ?Recorded ?Confirmed ?Last Taken ?Type acetaminophen 500 mg capsule 500 mg PO Q6H PRN Breakthrough 12/01/22 01/31/25 Unknown History Pain, Mild aspirin 81 mg tablet,delayed 81 mg PO DAILY 12/01/22 01/31/25 Unknown History release (Adult Aspirin Regimen) atorvastatin 80 mg tablet 80 mg PO HS 07/11/24 01/31/25 Unknown History cefdinir 300 mg capsule 300 mg PO Q12H 11/26/24 01/31/25 Unknown History metformin 500 mg tablet 500 mg PO BID 11/26/24 01/31/25 Unknown History irbesartan 300 mg tablet 150 mg PO DAILY 01/31/25 01/31/25 Unknown History Allergies Allergy/AdvReac Type Severity Reaction Status Date / Time lisinopril Allergy Unknown Cough Verified 02/14/25 03:40 gabapentin AdvReac Severe Confusion Verified 02/14/25 03:40 Review of Systems Review of Systems: A 10 system review of systems was completed on the patient and is negative except for what is stated in the HPI. Nursing and ancillary documentation was reviewed. [facility] Past Medical History Medical History Pure hypercholesterolemia, unspecified Chronic kidney disease, stage 3a Hypertensive chronic kidney disease with stage 1 through stage 4 chronic kidney disease, or unspecified chronic kidney disease Major depressive disorder, recurrent, in remission, unspecified Obstructive sleep apnea (adult) (pediatric) Gastro-esophageal reflux disease without esophagitis Type 2 diabetes mellitus without complications Lumbar spondylosis Restless legs syndrome Generalized osteoarthritis Surgical History Surgical History History of surgery on right wrist proximal row carpectomy 2022 History of tonsillectomy and adenoidectomy 1952 and 1959 History of arthroplasty of knee Left total knee 08/08/2005 Right total knee 08/20/03 H/O arthroscopy of right knee 08/2002 History of appendectomy 1974 History of laryngoscopy removed nodes of vocal cords 1984 History of carpal tunnel surgery 1998 Family History Family History Father Acute myocardial infarction Heart disease Mother Throat cancer Hypertension Grandparent Alzheimer's dementia Diabetes mellitus Infection Cerebrovascular accident Sibling Dementia Social History Social History Smoking status: Former smoker Tobacco type: cigarettes Smoking end date: 07/11/72 Alcohol intake: never Substance use: never Substance use type: does not use Do You Feel Safe in your Home?: Yes Lack of Transportation: No Lack of Food: Never True Current Housing: I Have Housing Concerned About Future Housing: No Difficulty Paying Gas/Electric Bills: No Difficulty Paying for Meds: No Currently Unemployed: No Education: Don't Know Difficulty w/ Childcare or Family Care: No Living arrangements: with family Occupation/Education: retired Gender identity (if verbalized by the patient): Female Sexual Orientation (if Verbalized by the Patient): Straight or Heterosexual Spiritual care concerns: No Exam Narrative: GENERAL: Well-appearing, well-nourished, and in no acute distress. HEAD: Normocephalic, atraumatic. EYES: PERRLA and EOMI. ENT: Nares clear, no rhinorrhea or epistaxis. Mucous membranes moist. NECK: Supple. CHEST: Clear to auscultation. No respiratory distress. HEART: Regular rate and rhythm. No murmur heard. Normal peripheral pulses. ABDOMEN: Soft, nontender, nondistended, normal active bowel sounds. EXTREMITIES: Normal range of motion decreased range of motion of the left hip tenderness to palpation shortening rotating in the left lower extremity. No edema. SKIN: Warm, dry, no rash. NEURO: No focal deficits. Alert and oriented x3. PSYCH: Normal mood and affect. Course Vital Signs Vital signs: Vital Signs Temperature 36.7 C 02/14/25 03:36 Pulse Rate 86 02/14/25 03:36 Respiratory Rate 20 02/14/25 03:36 Blood Pressure 138/105 H 02/14/25 03:36 Pulse Oximetry 96 02/14/25 03:36 Oxygen Delivery Room Air 02/14/25 03:36 Temperature 36.7 C 02/14/25 03:36 Pulse Rate 87 02/14/25 03:44 Respiratory Rate 18 02/14/25 03:44 Blood Pressure 137/96 H 02/14/25 03:44 Pulse Oximetry 99 02/14/25 03:44 Oxygen Delivery Room Air 02/14/25 03:36 Medical Decision Making MDM Narrative Medical decision making narrative: Differential diagnosis includes fracture, contusion Plain film x-rays were obtained of the left hip that showed evidence of a femoral neck fracture Patient's pain was controlled patient will be admitted to the hospitalist service with orthopedic consult Vital Signs Vital Signs: Vital Signs Temperature 36.7 C 02/14/25 03:36 Pulse Rate 86 02/14/25 03:36 Respiratory Rate 20 02/14/25 03:36 Blood Pressure 138/105 H 02/14/25 03:36 Pulse Oximetry 96 02/14/25 03:36 Oxygen Delivery Room Air 02/14/25 03:36 Temperature 36.7 C 02/14/25 03:36 Pulse Rate 87 02/14/25 03:44 Respiratory Rate 18 02/14/25 03:44 Blood Pressure 137/96 H 02/14/25 03:44 Pulse Oximetry 99 02/14/25 03:44 Oxygen Delivery Room Air 02/14/25 03:36 Lab Data 02/14/25 03:42 02/14/25 03:42 Labs: Lab Results 02/14/25 02/14/25 02/14/25 Range/Units 03:42 03:43 04:08 WBC 12.1 H (4.5-10.0) K/mm3 RBC 4.49 (4.2-5.4) M/mm3 Hgb 11.0 L (12.0-15.0) g/dL Hct 35.8 L (37.0-47.0) % MCV 79.7 L (80-100) fl MCH 24.5 L (26-34) pg MCHC 30.7 L (32-36) g/dl RDW 16.2 H (11.5-14.5) % Plt Count 383 H (150-375) k/mm3 MPV 10.0 (7.4-10.4) fl Immature Gran % (Auto) 0.4 (0-0.5) % Neut % (Auto) 45.8 (45.5-73.1) % Lymph % (Auto) 45.8 H (18.3-44.2) % Tucker % (Auto) 5.9 (2.6-8.5) % Eos % (Auto) 1.8 (0-4.4) % Baso % (Auto) 0.3 (0.2-1.2) % Lymph # (Auto) 5.56 H (0.9-3.2) K/mm3 Tucker # (Auto) 0.7 H (0.1-0.6) K/mm3 Eos # (Auto) 0.2 (0-0.3) K/mm3 Baso # (Auto) 0.0 (0.0-0.1) K/mm3 Abs Immat Gran (auto) 0.05 H (0.00-0.031) K/mm3 Absolute Neuts (auto) 5.6 (1.3-6.7) K/mm3 Absolute Nucleated RBC 0.000 (0.0-0.012) K/mm3 Nucleated RBC % 0.0 (0.0-0.2) % PT 12.8 (11.1-14.7) Seconds INR 0.9 APTT 28.9 (22.3-36.8) Seconds Sodium 136 L (137-145) mmol/L Potassium 4.1 (3.4-5.0) mmol/L Chloride 103 (98-107) mmol/L Carbon Dioxide 20 L (22-30) mmol/L Anion Gap 13 H (4-12) mmol/L BUN 33 H D (7-17) mg/dL Creatinine 1.03 H (0.7-1.0) mg/dL Estim Creat Clear Calc 52 ml/min Estimated GFR 52 L (59 - ) Glucose 117 H (65-110) mg/dL Calcium 9.7 (8.4-10.2) mg/dL Total Bilirubin 0.3 (0.2-1.3) mg/dL AST 30 (14-36) U/L ALT 23 (6-35) U/L Alkaline Phosphatase 87 (38-126) U/L Total Protein 8.0 (6.3-8.2) g/dL Albumin 4.7 (3.5-5.1) g/dL Urine Color Pending Urine Appearance Pending Urine pH Pending Ur Specific [place] Pending Urine Protein Pending Urine Glucose (UA) Pending Urine Ketones Pending Ur Blood (Man) Pending Urine Nitrate Pending Urine Bilirubin Pending Urine Urobilinogen Pending Leukocyte Esterase Rfl Pending Blood Type A Positive Antibody Screen Negative Discharge Plan Discharge Clinical Impression: Closed fracture of neck of left femur Patient Disposition: Still a Patient Condition: Stable Patient Language: Lithuanian Prescriptions: No Action metformin 500 mg tablet 500 mg PO BID cefdinir 300 mg capsule 300 mg PO Q12H aspirin [Adult Aspirin Regimen] 81 mg tablet,delayed release (DR/EC) 81 mg PO DAILY acetaminophen 500 mg capsule 500 mg PO Q6H PRN (Reason: Breakthrough Pain, Mild) meclizine 25 mg tablet 25 mg PO TID PRN (Reason: dizziness) Qty: 60 1RF irbesartan 300 mg tablet 150 mg PO DAILY atorvastatin 80 mg tablet 80 mg PO HS escitalopram oxalate 20 mg tablet 20 mg PO DAILY Qty: 90 1RF Follow-up/Referrals: Aurelio Hercules MD [Primary Care Provider] - Time of Disposition: 05:08
[2025-02-14 04:43] LABS: Add Urine Microscopic? YES; Appearance Urine Cloudy (Clear); Bilirubin Urine Negative (Negative); Blood Urine Negative (Negative); Color Urine Yellow (Yellow); Glucose Urine UA Negative (Negative); Ketones Urine Negative (Negative); Leukocyte Esterase Ur Negative LEU/UL (Negative); Nitrate Urine Negative (Negative); Protein Urine Negative (Negative); Specific Grav Ur 1.018 (1.001-1.035); Urobilinogen Urine 0.2 mg/dL (<2.0)
--- NOTE | 2025-02-14 04:45 | PM.IMHP ---
H&P: HPI History of Present Illness Date/Time: 02/14/25 05:30 Chief Complaint: Left hip pain after a fall. Narrative: This is a very pleasant 74-year-old female with hypertension, hyperlipidemia, type 2 diabetes mellitus, gastroesophageal reflux disease, depression, spinal stenosis status post L2-L3 posterior spinal fusion done for cauda equina syndrome on 07/14/2024, epidural abscesses status post laminectomy at C3, C4, C6, T1, T3 with evacuation of epidural abscess and irrigation and debridement of lumbar spine incision and MSSA bacteremia in August 2024 on cefdinir 300 mg q.12 hours for chronic suppression through May 04, 2025 (followed by Dr. Viky Wagoner at [facility]) who presented to the emergency department via EMS from home for evaluation of hip pain after a fall. The patient provides the following history. Not long prior to arrival she was using her walker to go to her bedroom but she lost her balance as she was trying to carry something in 1 hand and use her walker with the other. She fell down onto her left side and had immediate pain in her left hip and she was unable to get herself up. At the time my evaluation she complains of severe bone pain in the left hip. She denies syncope, near syncope, chest pain, pleuritic pain, shortness of breath, nausea, vomiting, and diarrhea. No recent cold or flu symptoms. In the ED: Blood pressure was a bit elevated on arrival in the remainder for vital signs were stable. Labs are significant for WBC count 12.1, hemoglobin 11.0, MCV 79.9, sodium 136, BUN 33, creatinine 1.03, glucose 117. Radiographs showed a left femoral neck fracture. She is being admitted in this setting for pain control and orthopedic consultation. Review of Systems Review of Systems: 12 systems were reviewed and are negative except for as per HPI. [facility] Past Medical History Medical History (Updated 02/14/25 @ 05:53 by Keisha Barriga PA-C) Chronic antibiotic suppression cefdinir 300 mg q.12 hours through 05/01/2025 for MSSA bacteremia related to epidural abscesses MSSA bacteremia (08/2024) secondary to epidural abscess at C1-C2 to T3 status post laminectomy with evacuation of epidural abscess and irrigation debridement of lumbar spine incision Obstructive sleep apnea Pure hypercholesterolemia, unspecified Chronic kidney disease, stage 3a Major depressive disorder, recurrent, in remission, unspecified Gastro-esophageal reflux disease without esophagitis Type 2 diabetes mellitus without complications Lumbar spondylosis Restless legs syndrome Generalized osteoarthritis Surgical History Surgical History (Updated 02/14/25 @ 05:39 by Keisha Barriga PA-C) History of incision and drainage lumbar incision History of cervical spinal surgery (08/2024) evacuation of epidural abscess C1-T3 History of lumbar spinal fusion (06/2024) for cauda equina syndrome Status post proximal row carpectomy of wrist (2022) right History of arthroscopy of right knee History of bilateral knee arthroplasty Status post excision of vocal cord nodule (1984) History of tonsillectomy and adenoidectomy History of appendectomy (1974) History of carpal tunnel surgery (1998) Family History Family History Father Acute myocardial infarction Heart disease Mother Throat cancer Hypertension Grandparent Alzheimer's dementia Diabetes mellitus Infection Cerebrovascular accident Sibling Dementia Social History Social History (Updated 02/14/25 @ 05:50 by Keisha Barriga PA-C) Social History: Surrogate medical decision maker: Marlena Ortega, daughter. Code status: Full code. Smoking status: Former smoker Tobacco type: cigarettes Smoking end date: 07/11/72 Alcohol intake: never Substance use: never Substance use type: does not use Do You Feel Safe in your Home?: Yes Lack of Transportation: No Lack of Food: Never True Current Housing: I Have Housing Concerned About Future Housing: No Difficulty Paying Gas/Electric Bills: No Difficulty Paying for Meds: No Currently Unemployed: No Education: Don't Know Difficulty w/ Childcare or Family Care: No Living arrangements: with family Additional living arrangements comments: The patient lives in [place]. Her grandson lives at home with her. Occupation/Education: retired Spiritual care concerns: No Meds Home Medications and Allergies Home Medications ?Medication ?Instructions ?Recorded ?Confirmed ?Type acetaminophen 500 mg capsule 500 mg PO Q6H PRN Breakthrough 12/01/22 01/31/25 History Pain, Mild aspirin 81 mg tablet,delayed 81 mg PO DAILY 12/01/22 01/31/25 History release (Adult Aspirin Regimen) meclizine 25 mg tablet 25 mg PO TID PRN dizziness #60 tabs 04/28/23 01/31/25 Rx atorvastatin 80 mg tablet 80 mg PO HS 07/11/24 01/31/25 History cefdinir 300 mg capsule 300 mg PO Q12H 11/26/24 01/31/25 History metformin 500 mg tablet 500 mg PO BID 11/26/24 01/31/25 History irbesartan 300 mg tablet 150 mg PO DAILY 01/31/25 01/31/25 History escitalopram oxalate 20 mg tablet 20 mg PO DAILY #90 tabs 02/03/25 Rx Allergies Allergy/AdvReac Type Severity Reaction Status Date / Time lisinopril Allergy Unknown Cough Verified 02/14/25 03:40 gabapentin AdvReac Severe Confusion Verified 02/14/25 03:40 Vital Signs Vital Signs - 24 hr 02/14/25 03:36 Temperature 98.1 F Pulse Rate 86 Respiratory Rate 20 Blood Pressure 138/105 H Pulse Oximetry 96 Oxygen Delivery Room Air Exam Narrative: General: Nontoxic-appearing female supine in bed in mild distress due to pain. Weight: A.m. 0.7 kg. BMI: 33.4. HEENT: PERRL, EOMI. Sclera anicteric. Tacky mucous membranes. Neck: Supple. Respiratory: Lungs are clear to auscultation bilaterally. Cardiovascular: Regular rate and rhythm with S1-S2. Gastrointestinal: Abdomen is soft, nontender, and nondistended with positive bowel sounds. Skin: Warm and dry. Extremities: No cyanosis, clubbing, or edema. Radial and pedal pulses intact. Musculoskeletal: Left lower extremity shortened and externally rotated. No gross deformity noted. Neurological: Alert. Cranial nerves 2-12 are grossly intact. No gross focal deficits to casual conversation. Psychiatric: Pleasant and cooperative with normal mood and affect. Judgment and insight intact. H&P: Results Labs Labs: Short CBC 02/14/25 Range/Units 03:42 WBC 12.1 H (4.5-10.0) K/mm3 Hgb 11.0 L (12.0-15.0) g/dL Hct 35.8 L (37.0-47.0) % Plt Count 383 H (150-375) k/mm3 BMP 02/14/25 03:42 Sodium 136 L Potassium 4.1 Chloride 103 Carbon Dioxide 20 L BUN 33 H D Creatinine 1.03 H Glucose 117 H Calcium 9.7 Liver Function 02/14/25 Range/Units 03:42 Total Bilirubin 0.3 (0.2-1.3) mg/dL AST 30 (14-36) U/L ALT 23 (6-35) U/L Alkaline Phosphatase 87 (38-126) U/L Albumin 4.7 (3.5-5.1) g/dL Assessment and Plan Assessment and plan (1) Closed left hip fracture: Code(s): S72.002A - Fracture of unspecified part of neck of left femur, initial encounter for closed fracture Status: Acute (2) Chronic antibiotic suppression: Code(s): Z79.2 - manager long term care (current) use of antibiotics Status: Acute (3) Hypertension: Code(s): I10 - Essential (primary) hypertension Status: Acute (4) Chronic kidney disease, stage 3a: Code(s): N18.31 - Chronic kidney disease, stage 3a Status: Chronic (5) Type 2 diabetes mellitus: Code(s): E11.9 - Type 2 diabetes mellitus without complications Status: Acute Plan The patient presented to the emergency department via EMS from home for evaluation of left hip pain after mechanical fall as detailed in HPI. Labs, imaging, EKG, and all reports were personally reviewed. Radiographs show left femoral neck fracture. Analgesics are available as needed. She will be NPO for possible surgery later on today. She is on chronic suppressive antibiotics through April 2025 for history of MSSA bacteremia related to epidural abscesses and it may be prudent to reach out to her infectious disease specialist to see if she has any recommendations. Blood pressures have been a bit high the likely due to pain and will be monitored closely. Creatinine is perhaps a bit higher than what she typically runs. Initiate sliding scale insulin, Accu-Cheks, and hypoglycemic protocol. She believes her chronic medical conditions are well controlled. Her home medications will be reviewed and resumed as appropriate. Findings and treatment plan were discussed with the patient. Questions were solicited and answered to satisfaction. The patient's medical management will be taken over by the hospitalist team in a.m. Quality VTE Prophylaxis VTE prophylaxis: mechanical ordered If No VTE Prophylaxis Answer both mechanical and pharmacologic: Reason no pharmacologic proph: medical contraindication (anticipate surgery later today) Hospitalist MIPS Advance Care Plan I have confirmed that the patient's Advanced Care Plan is present, code status is documented, or surrogate decision maker is listed in patient medical record.: Yes Medication Reconciliation I have utilized all available resources to obtain, update and review the patients current medications (includes all prescriptions, OTC, herbals, cannabis, and nutritional supplements).: Yes
[2025-02-14 05:01] LABS: RBC Urine 0-2 /hpf (0-2); Squamous Epithelial Cell Urine Few /hpf (Few)
[2025-02-14] MEDS: HYDROmorphone HCL INJ (*CRX) 1 MG/ML SYR 0.5 MG IV PUSH (05:59)
[2025-02-14 07:07] LABS: Hemoglobin A1C 6.8 % (<5.7)
--- NOTE | 2025-02-14 07:39 | ADMGEN ---
This patient, Arabella Padron, was admitted to 3 [facility] Surg Room 324-02. Patient/family oriented to hospital policies and general routines including ID bracelet, bed and alarms, visiting hours, pain management, procedures, bathroom and other care routines, personal items, smoking policy, room service/diet, and visiting hours. Information on how to activate the Rapid Response Team has been discussed. Patient/Family are encouraged to report perceived risks to care and to ask questions if they do not understand what they are told or what they should do.
[2025-02-14] MEDS: SODIUM CHLORIDE 0.9% IV 1,000 ML 100 ML IV CONT (07:56)
--- NOTE | 2025-02-14 08:03 | P.CONOP_ITS ---
Assessment and Plan Assessment and plan (1) Closed fracture of neck of left femur: Qualifiers: Encounter type: initial encounter Qualified Code(s): S 72.002A - Fracture of unspecified part of neck of left femur, initial encounter for closed fracture <MYNOR Donohue - Last Filed: 02/14/25 12:57> Code(s): S72.002A - Fracture of unspecified part of neck of left femur, initial encounter for closed fracture <MYNOR Donohue - Last Filed: 02/14/25 12:57> Status: Acute <MYNOR Donohue - Last Filed: 02/14/25 12:57> Assessment and Plan: Displaced left femoral neck fracture. Will benefit from bipolar hemiarthroplasty. Risks, benefits, and alternatives discussed. Proceed with bipolar hemiarthroplasty left hip. <Riccardo Stark MD - Last Filed: 02/14/25 13:20> History of Present Illness HPI Consult date: 02/14/25 <MYNOR Donohue - Last Filed: 02/14/25 12:57> 02/14/25 <Riccardo Stark MD - Last Filed: 02/14/25 13:20> Chief complaint: Left hip fracture <MYNOR Donohue - Last Filed: 02/14/25 12:57> Narrative: Patient presents for left hip pain after a fall. She is diabetic, has HTN, Had laminectomy in August 2024. She was in rehab for 7 weeks. Currently using a walker at home. Spinal abscess, sepsis and UTI post laminectomy. She is on chronic antibiotics until April 2025 through infectious disease. Patient was walking into her bedroom and was carrying something, slipped and when down. She lives with her grandson (he is moving out in February). She will then be by herself after that. Daughter in room. History of bilateral TKA in [address] Miguel. <MYNOR Donohue - Last Filed: 02/14/25 12:57> Review of Systems 2 Review of Systems: All systems reviewed & are unremarkable except as noted in HPI and below <MYNOR Donohue - Last Filed: 02/14/25 12:57> [facility] Past Medical History Medical History: Medical History Chronic antibiotic suppression cefdinir 300 mg q.12 hours through 05/01/2025 for MSSA bacteremia related to epidural abscesses MSSA bacteremia (08/2024) secondary to epidural abscess at C1-C2 to T3 status post laminectomy with evacuation of epidural abscess and irrigation debridement of lumbar spine incision Obstructive sleep apnea Pure hypercholesterolemia, unspecified Chronic kidney disease, stage 3a Major depressive disorder, recurrent, in remission, unspecified Gastro-esophageal reflux disease without esophagitis Type 2 diabetes mellitus without complications Lumbar spondylosis Restless legs syndrome Generalized osteoarthritis <MYNOR Donohue - Last Filed: 02/14/25 12:57> Surgical History Surgical History: Surgical History History of incision and drainage lumbar incision History of cervical spinal surgery (08/2024) evacuation of epidural abscess C1-T3 History of lumbar spinal fusion (06/2024) for cauda equina syndrome Status post proximal row carpectomy of wrist (2022) right History of arthroscopy of right knee History of bilateral knee arthroplasty Status post excision of vocal cord nodule (1984) History of tonsillectomy and adenoidectomy History of appendectomy (1974) History of carpal tunnel surgery (1998) <MYNOR Donohue - Last Filed: 02/14/25 12:57> Family History Family History: Family History Father Acute myocardial infarction Heart disease Mother Throat cancer Hypertension Grandparent Alzheimer's dementia Diabetes mellitus Infection Cerebrovascular accident Sibling Dementia <MYNOR Donohue - Last Filed: 02/14/25 12:57> Social History Social History: Social History Social History: Surrogate medical decision maker: Marlena Ortega, daughter. Code status: Full code. Smoking status: Former smoker Alcohol intake: never Substance use: never Substance use type: does not use Do You Feel Safe in your Home?: Yes Lack of Transportation: No Lack of Food: Never True Current Housing: I Have Housing Concerned About Future Housing: No Difficulty Paying Gas/Electric Bills: No Difficulty Paying for Meds: No Currently Unemployed: No Education: Don't Know Difficulty w/ Childcare or Family Care: No Living arrangements: with family Additional living arrangements comments: The patient lives in [place]. Her grandson lives at home with her. Occupation/Education: retired Spiritual care concerns: No <MYNOR Donohue - Last Filed: 02/14/25 12:57> Meds Home Medications and Allergies Home medications: Home Medications ?Medication ?Instructions ?Recorded ?Confirmed ?Type aspirin 81 mg tablet,delayed 81 mg PO DAILY 12/01/22 02/14/25 History release (Adult Aspirin Regimen) meclizine 25 mg tablet 25 mg PO TID PRN dizziness #60 tabs 04/28/23 02/14/25 Rx atorvastatin 80 mg tablet 80 mg PO HS 07/11/24 02/14/25 History cefdinir 300 mg capsule 300 mg PO Q12H 11/26/24 02/14/25 History metformin 500 mg tablet 500 mg PO BID 11/26/24 02/14/25 History irbesartan 300 mg tablet 150 mg PO DAILY 01/31/25 02/14/25 History escitalopram oxalate 20 mg tablet 20 mg PO DAILY #90 tabs 02/03/25 02/14/25 Rx <MYNOR Donohue - Last Filed: 02/14/25 12:57> Allergies/Adverse reactions: Allergies Allergy/AdvReac Type Severity Reaction Status Date / Time lisinopril Allergy Unknown Cough Verified 02/14/25 12:42 gabapentin AdvReac Severe Confusion Verified 02/14/25 12:42 <MYNOR Donohue - Last Filed: 02/14/25 12:57> Vital Signs Vital Signs - 24 hr 02/14/25 03:36 02/14/25 03:44 02/14/25 05:15 Temperature 98.1 F Pulse Rate 86 87 78 Respiratory Rate 20 18 20 Blood Pressure 138/105 H 137/96 H 138/69 Pulse Oximetry 96 99 100 Oxygen Delivery Room Air Oxygen Flow Rate 02/14/25 06:12 Temperature Pulse Rate Respiratory Rate Blood Pressure Pulse Oximetry 97 Oxygen Delivery Nasal Cannula Oxygen Flow Rate 4 <MYNOR Donohue - Last Filed: 02/14/25 12:57> Exam 2 Narrative: Patient is alert and oriented. Resting comfortably in bed. No acute distress. No erythema or ecchymosis. No rashes or lesions noted. Warm, normal appearing skin. Tenderness at left hip. Left lower leg shortened and externally rotated. Calf nontender. Distal pulses palpable. Normal capillary refill. Patient able to move and wiggle toes. Light touch sensation intact. Moreno catheter in place. Healed incisions from lumbar and cervical laminectomy. <MYNOR Donohue - Last Filed: 02/14/25 12:57> Results Labs Result Diagrams: 02/14/25 03:42 02/14/25 03:42 <MYNOR Donohue - Last Filed: 02/14/25 12:57> Labs: Abnormal lab results 02/14/25 02/14/25 Range/Units 03:42 04:08 WBC 12.1 H (4.5-10.0) K/mm3 Hgb 11.0 L (12.0-15.0) g/dL Hct 35.8 L (37.0-47.0) % MCV 79.7 L (80-100) fl MCH 24.5 L (26-34) pg MCHC 30.7 L (32-36) g/dl RDW 16.2 H (11.5-14.5) % Plt Count 383 H (150-375) k/mm3 Lymph % (Auto) 45.8 H (18.3-44.2) % Lymph # (Auto) 5.56 H (0.9-3.2) K/mm3 [place] # (Auto) 0.7 H (0.1-0.6) K/mm3 Abs Immat Gran (auto) 0.05 H (0.00-0.031) K/mm3 Sodium 136 L (137-145) mmol/L Carbon Dioxide 20 L (22-30) mmol/L Anion Gap 13 H (4-12) mmol/L BUN 33 H D (7-17) mg/dL Creatinine 1.03 H (0.7-1.0) mg/dL Estimated GFR 52 L (59 - ) Glucose 117 H (65-110) mg/dL Hemoglobin A1c 6.8 H (<5.7) % Urine Appearance Cloudy H (Clear) Urine WBC 6-10 H (0-3) /hpf H & H 02/14/25 Range/Units 03:42 Hgb 11.0 L (12.0-15.0) g/dL Hct 35.8 L (37.0-47.0) % Coagulation 02/14/25 Range/Units 03:42 INR 0.9 All other labs normal. <MYNOR Donohue - Last Filed: 02/14/25 12:57>
[2025-02-14 08:09] LABS: Glucose Point of Care 140 mg/dl (65-105)
[2025-02-14 11:55] LABS: Glucose Point of Care 141 mg/dl (65-105)
[2025-02-14] MEDS: LACTATED RINGERS 1,000 ML 30 ML IV CONT ×2 (12:35→15:27)
[2025-02-14] MEDS: TRANEXAMIC ACID 1,000MG/ISO100 1,000 MG/100 ML BAG 200 MG IVPB (12:57)
--- NOTE | 2025-02-14 13:10 | WPDANESEPPF ---
Anes - Initial Pre Proc Eval Procedure: Operation Date: 02/14/25 13:30 Proposed Procedures p Left Bipolar Hip Replacement - Riccardo Stark MD Date/Time: 02/14/25 13:10 Surgeon: Tamy Rasheed MD Pre Op Diagnosis: Left hip fracture Patient Data Age: 74 Gender: F Height: 1.73 m Weight: 98.9 kg Last Vital Signs Temp 36.7 C 02/14/25 03:36 Pulse 78 02/14/25 05:15 Resp 20 02/14/25 05:15 BP 138/69 02/14/25 05:15 Pulse Ox 96 02/14/25 09:25 O2 Del Method Nasal Cannula 02/14/25 09:25 O2 Flow Rate 4 02/14/25 09:25 Allergies Allergy/AdvReac Type Severity Reaction Status Date / Time lisinopril Allergy Unknown Cough Verified 02/14/25 12:42 gabapentin AdvReac Severe Confusion Verified 02/14/25 12:42 Home Medications ?Medication ?Instructions ?Recorded ?Confirmed ?Type aspirin 81 mg tablet,delayed 81 mg PO DAILY 12/01/22 02/14/25 History release (Adult Aspirin Regimen) meclizine 25 mg tablet 25 mg PO TID PRN dizziness #60 tabs 04/28/23 02/14/25 Rx atorvastatin 80 mg tablet 80 mg PO HS 07/11/24 02/14/25 History cefdinir 300 mg capsule 300 mg PO Q12H 11/26/24 02/14/25 History metformin 500 mg tablet 500 mg PO BID 11/26/24 02/14/25 History irbesartan 300 mg tablet 150 mg PO DAILY 01/31/25 02/14/25 History escitalopram oxalate 20 mg tablet 20 mg PO DAILY #90 tabs 02/03/25 02/14/25 Rx Laboratory Tests 02/14/25 02/14/25 02/14/25 03:42 03:43 04:08 WBC 12.1 H K/mm3 (4.5-10.0) RBC 4.49 M/mm3 (4.2-5.4) Hgb 11.0 L g/dL (12.0-15.0) Hct 35.8 L % (37.0-47.0) MCV 79.7 L fl (80-100) MCH 24.5 L pg (26-34) MCHC 30.7 L g/dl (32-36) RDW 16.2 H % (11.5-14.5) Plt Count 383 H k/mm3 (150-375) MPV 10.0 fl (7.4-10.4) Immature Gran % (Auto) 0.4 % (0-0.5) Neut % (Auto) 45.8 % (45.5-73.1) Lymph % (Auto) 45.8 H % (18.3-44.2) Whitley % (Auto) 5.9 % (2.6-8.5) Eos % (Auto) 1.8 % (0-4.4) Baso % (Auto) 0.3 % (0.2-1.2) Lymph # (Auto) 5.56 H K/mm3 (0.9-3.2) Whitley # (Auto) 0.7 H K/mm3 (0.1-0.6) Eos # (Auto) 0.2 K/mm3 (0-0.3) Baso # (Auto) 0.0 K/mm3 (0.0-0.1) Abs Immat Gran (auto) 0.05 H K/mm3 (0.00-0.031) Absolute Neuts (auto) 5.6 K/mm3 (1.3-6.7) Absolute Nucleated RBC 0.000 K/mm3 (0.0-0.012) Nucleated RBC % 0.0 % (0.0-0.2) PT 12.8 Seconds (11.1-14.7) INR 0.9 APTT 28.9 Seconds (22.3-36.8) Sodium 136 L mmol/L (137-145) Potassium 4.1 mmol/L (3.4-5.0) Chloride 103 mmol/L (98-107) Carbon Dioxide 20 L mmol/L (22-30) Anion Gap 13 H mmol/L (4-12) BUN 33 H D mg/dL (7-17) Creatinine 1.03 H mg/dL (0.7-1.0) Estim Creat Clear Calc 52 ml/min Estimated GFR 52 L (59 - ) Glucose 117 H mg/dL (65-110) POC Capillary Glucose Hemoglobin A1c 6.8 H % (<5.7) Calcium 9.7 mg/dL (8.4-10.2) Total Bilirubin 0.3 mg/dL (0.2-1.3) AST 30 U/L (14-36) ALT 23 U/L (6-35) Alkaline Phosphatase 87 U/L (38-126) Total Protein 8.0 g/dL (6.3-8.2) Albumin 4.7 g/dL (3.5-5.1) Urine Color Yellow (Yellow) Urine Appearance Cloudy H (Clear) Urine pH 5.0 (5.0-9.0) Ur Specific [place] 1.018 (1.001-1.035) Urine Protein Negative mg/dL (Negative) Urine Glucose (UA) Negative mg/dL (Negative) Urine Ketones Negative mg/dL (Negative) Ur Blood (Man) Negative (Negative) Urine Nitrate Negative (Negative) Urine Bilirubin Negative (Negative) Urine Urobilinogen 0.2 mg/dL (<2.0) Leukocyte Esterase Rfl Negative IRAIS/UL (Negative) Urine RBC 0-2 /hpf (0-2) Urine WBC 6-10 H /hpf (0-3) Ur Squamous Epith Cells Few /hpf (Few) Blood Type A Positive Antibody Screen Negative 02/14/25 02/14/25 08:01 11:46 WBC RBC Hgb Hct MCV MCH MCHC RDW Plt Count MPV Immature Gran % (Auto) Neut % (Auto) Lymph % (Auto) Whitley % (Auto) Eos % (Auto) Baso % (Auto) Lymph # (Auto) [place] # (Auto) Eos # (Auto) Baso # (Auto) Abs Immat Gran (auto) Absolute Neuts (auto) Absolute Nucleated RBC Nucleated RBC % PT INR APTT Sodium Potassium Chloride Carbon Dioxide Anion Gap BUN Creatinine Estim Creat Clear Calc Estimated GFR Glucose POC Capillary Glucose 140 H mg/dl 141 H mg/dl (65-105) (65-105) Hemoglobin A1c Calcium Total Bilirubin AST ALT Alkaline Phosphatase Total Protein Albumin Urine Color Urine Appearance Urine pH Ur Specific [place] Urine Protein Urine Glucose (UA) Urine Ketones Ur Blood (Man) Urine Nitrate Urine Bilirubin Urine Urobilinogen Leukocyte Esterase Rfl Urine RBC Urine WBC Ur Squamous Epith Cells Blood Type Antibody Screen Patient hx anesthesia problems: none Family hx anesthesia problems: none Results Review: All pre-operative results and documents have been reviewed as part of the pre-operative evaluation. [facility] Past Medical History Medical History Chronic antibiotic suppression cefdinir 300 mg q.12 hours through 05/01/2025 for MSSA bacteremia related to epidural abscesses MSSA bacteremia (08/2024) secondary to epidural abscess at C1-C2 to T3 status post laminectomy with evacuation of epidural abscess and irrigation debridement of lumbar spine incision Obstructive sleep apnea Pure hypercholesterolemia, unspecified Chronic kidney disease, stage 3a Major depressive disorder, recurrent, in remission, unspecified Gastro-esophageal reflux disease without esophagitis Type 2 diabetes mellitus without complications Lumbar spondylosis Restless legs syndrome Generalized osteoarthritis Surgical History Surgical History History of incision and drainage lumbar incision History of cervical spinal surgery (08/2024) evacuation of epidural abscess C1-T3 History of lumbar spinal fusion (06/2024) for cauda equina syndrome Status post proximal row carpectomy of wrist (2022) right History of arthroscopy of right knee History of bilateral knee arthroplasty Status post excision of vocal cord nodule (1984) History of tonsillectomy and adenoidectomy History of appendectomy (1974) History of carpal tunnel surgery (1998) Family History Family History Father Acute myocardial infarction Heart disease Mother Throat cancer Hypertension Grandparent Alzheimer's dementia Diabetes mellitus Infection Cerebrovascular accident Sibling Dementia Social History Social History Social History: Surrogate medical decision maker: Marlena Ortega, daughter. Code status: Full code. Smoking status: Former smoker Alcohol intake: never Substance use: never Substance use type: does not use Do You Feel Safe in your Home?: Yes Lack of Transportation: No Lack of Food: Never True Current Housing: I Have Housing Concerned About Future Housing: No Difficulty Paying Gas/Electric Bills: No Difficulty Paying for Meds: No Currently Unemployed: No Education: Don't Know Difficulty w/ Childcare or Family Care: No Living arrangements: with family Additional living arrangements comments: The patient lives in [place]. Her grandson lives at home with her. Occupation/Education: retired Spiritual care concerns: No Anes - Eval Final PreProcedure Day of Procedure 02/14/25 13:10 Patient weight: obese Heart: regular rate and rhythm Lungs: clear to auscultation Airway: Mallampati scale class II Neurological: alert and oriented Last oral intake: >/= 8 hours ASA classification: III Emergent: no Anesthetic plan: proceed Anesthesia type and monitoring: general ETT and standard monitoring Results Review: All pre-operative results and documents have been reviewed as part of the pre-operative evaluation. Informed Consent: The patient's anesthetic plan and its attendant risks and benefits were discussed with the patient/family/POA. Questions were solicited and answers provided to the satisfaction of the patient/family/POA.
--- NOTE | 2025-02-14 13:18 | WPDHPUPDATE1 ---
History and Physical Update Update Date/Time: 02/14/25 13:18 History and Physical has been reviewed, including an updated exam of the patient. There are NO changes in the patient's condition. Risks, benefits, and alternatives have been discussed and questions answered. Patient agrees to proceed with procedure.
[2025-02-14] MEDS: ceFAZolin 2 GM/D5W 50 ML 2 GM/50 ML BAG IVPB (13:24)
[2025-02-14] MEDS: SODIUM CHLORIDE 0.9% IV 37.7 ML, MORPHINE SULFATE INJ (*CRX) 2 MG, ROPivacaine HCL 1% 2... INFILTRATE (14:09)
[2025-02-14 15:49] LABS: Glucose Point of Care 136 mg/dl (65-105)
--- NOTE | 2025-02-14 16:11 | W.PM.PROC2 ---
Procedure Note - Detailed Date of Procedure 02/14/25 Pre-op Diagnosis Displaced left hip femoral neck fracture Post-op Diagnosis Other Procedure Performed Bipolar hemiarthroplasty left hip. Surgeon Riccardo Stark MD Anesthesia General Findings Chronic attritional abductor partial tearing was identified. There was scarring and hypertrophic bursal tissue laterally and posterior superiorly. The bone quality was satisfactory. The acetabulum appeared normal. The labrum was preserved. Description of Procedure A general anesthetic was administered. The patient was carefully placed in the lateral decubitus position on the peg board positioner. An axillary roll was placed. The hip was prepped and draped in the usual sterile fashion. A minimally invasive optimized posterior approach to the hip was performed. An L shaped capsulotomy was created along the upper border of the piriformis. The short external rotators were tagged with number 2 high strength suture for later repair. The labrum was preserved. The femoral neck cut was performed. The femoral head was removed and sized. The acetabular floor was cleared of debris and loose tissue. The femur was sequentially broached. Trial was assessed for leg length and stability. The real component was impacted into position, trialed again, and the final head and bipolar component were assembled. The hip was reduced after copious irrigation. The short external rotators and capsule were repaired through drill holes in the posterior trochanter. The wound was closed in layers with 1 vicryl, 2,0, and 2-0 running barbed suture. Adhesive tapes were placed on the skin. The Prevena negative pressure suction dressing was used due to the morbid obesity. The patient was extubated and brought to the recovery room in stable condition. Implants Daya Insignia hip stem high offset size 6, UH are bipolar component outer diameter size 51, inner metal ball size 28 mm +0. Estimated Blood Loss 300 Drains No Pathology None sent Complications No immediate complications Condition Stable Disposition PACU [facility] Billing Surgery - Charge Forward: Surgery Billing
[2025-02-14] MEDS: metFORMIN HCL 500 MG TABLET PO (17:13)
[2025-02-14] MEDS: SENNA/DOCUSATE SODIUM TABLET 2 TAB PO (17:13)
[2025-02-14] MEDS: SODIUM CHLORIDE 0.9% IV 1,000 ML 125 ML IV CONT (17:14)
[2025-02-14 18:41] LABS: Glucose Point of Care 147 mg/dl (65-105)
[2025-02-14] MEDS: FAMOTIDINE 20 MG TABLET PO (20:42)
[2025-02-14] MEDS: CEFDINIR 300 MG CAPSULE PO (20:42)
[2025-02-14] MEDS: ATORVASTATIN 40 MG TABLET 80 MG PO (20:42)
[2025-02-14] MEDS: ENOXAPARIN 30 MG/0.3 ML SYRINGE SUB-Q (20:42)
[2025-02-14] MEDS: INSULIN ASPART (*BKC) 100 UNITS/ML SUB-Q (20:42)
[2025-02-14 20:45] LABS: Glucose Point of Care 227 mg/dl (65-105)
[2025-02-15] VITALS (7 sets, daily range): BP systolic 102–136; BP diastolic 45–61; PULSE 73–97; RESP 16–20; TEMP 36.7–37.1; O2SAT 98–100
[2025-02-15 07:12] LABS: Basophils Percent Auto 0.3 % (0.2-1.2); Eosinophils Percent Auto 0.2 % (0-4.4); Hematocrit 29.6 % (37.0-47.0); Immature Granulocyte Absolute 0.04 K/mm3 (0.00-0.031); Immature Granulocyte Percent A 0.4 % (0-0.5); Lymphocytes Absolute Auto 2.78 K/mm3 (0.9-3.2); Lymphocytes Percent Auto 25.2 % (18.3-44.2); Mean Corpuscular HGB Conc 30.4 g/dl (32-36); Mean Corpuscular Hemoglobin 24.7 pg (26-34); Mean Corpuscular Volume 81.3 fl (80-100); Mean Platelet Volume 9.6 fl (7.4-10.4); Monocytes Absolute Auto 0.9 K/mm3 (0.1-0.6); Monocytes Percent Auto 7.7 % (2.6-8.5); Neutrophils Absolute Auto 7.3 K/mm3 (1.3-6.7); Neutrophils Percent Auto 66.2 % (45.5-73.1); Platelet Count Result 270 k/mm3 (150-375); Red Blood Count 3.64 M/mm3 (4.2-5.4); Red Cell Distribution Width 16.3 % (11.5-14.5)
[2025-02-15 07:43] LABS: Anion Gap 10 mmol/L (4-12); Blood Urea Nitrogen 17 mg/dL (7-17); Calcium 8.5 mg/dL (8.4-10.2); Carbon Dioxide 19 mmol/L (22-30); Chloride 107 mmol/L (98-107); Estimated CRCL calculation 64 ml/min; Estimated Glomerular Filt Rate > 60; Glucose 160 mg/dL (65-110); Magnesium 1.6 mg/dL (1.6-2.3); Potassium 4.2 mmol/L (3.4-5.0); Sodium 136 mmol/L (137-145)
[2025-02-15 07:50] LABS: Glucose Point of Care 166 mg/dl (65-105)
[2025-02-15] MEDS: IRBESARTAN 150 MG TABLET PO (08:38)
[2025-02-15] MEDS: metFORMIN HCL 500 MG TABLET PO ×2 (08:39→17:03)
[2025-02-15] MEDS: ESCITALOPRAM OXALATE 10 MG TABLET 20 MG PO (08:39)
[2025-02-15] MEDS: FAMOTIDINE 20 MG TABLET PO ×2 (08:39→20:17)
[2025-02-15] MEDS: ENOXAPARIN 30 MG/0.3 ML SYRINGE SUB-Q ×2 (08:39→20:18)
--- NOTE | 2025-02-15 08:42 | PM.IMPN ---
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 Status: Acute (3) Hypertension: Code(s): I10 - Essential (primary) hypertension Status: Acute (4) Chronic kidney disease, stage 3a: Code(s): N18.31 - Chronic kidney disease, stage 3a Status: Chronic (5) Type 2 diabetes mellitus: Code(s): E11.9 - Type 2 diabetes mellitus without complications Status: Acute Plan This is a very pleasant 74-year-old female with hypertension, hyperlipidemia, type 2 diabetes mellitus, gastroesophageal reflux disease, depression, spinal stenosis status post L2-L3 posterior spinal fusion done for cauda equina syndrome on 07/14/2024, epidural abscesses status post laminectomy at C3, C4, C6, T1, T3 with evacuation of epidural abscess and irrigation and debridement of lumbar spine incision and MSSA bacteremia in August 2024 on cefdinir 300 mg q.12 hours for chronic suppression through May 04, 2025 (followed by Dr. Viky Wagoner at [facility]) who presented to the emergency department via EMS from home for evaluation of hip pain after a fall. Not long prior to arrival she was using her walker to go to her bedroom but she lost her balance as she was trying to carry something in 1 hand and use her walker with the other. She fell down onto her left side and had immediate pain in her left hip and she was unable to get herself up. She denies syncope, near syncope, chest pain, pleuritic pain, shortness of breath, nausea, vomiting, and diarrhea. No recent cold or flu symptoms. In the ED: Blood pressure was a bit elevated on arrival in the remainder for vital signs were stable. Labs are significant for WBC count 12.1, hemoglobin 11.0, MCV 79.9, sodium 136, BUN 33, creatinine 1.03, glucose 117. Radiographs showed a left femoral neck fracture. She is being admitted in this setting for pain control and orthopedic consultation. Status post bipolar hemiarthroplasty left hip 02/14/2025. 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 On cefdinir 300 mg every 12 hours for chronic suppression through May 04, 2025. DVT prophylaxis on Lovenox Code status full code Subjective Date/time seen: 02/15/25 08:42 Interval history: No overnight events. Work with therapy earlier today. No chest pain shortness of breath. Pain is controlled. Review of Systems Review of Systems: All systems reviewed & are unremarkable except as noted in HPI and below Exam Narrative: General: Nontoxic-appearing female supine in bed in no acute distress HEENT: PERRL, EOMI. Sclera anicteric. Tacky mucous membranes. Neck: Supple. Respiratory: Lungs are clear to auscultation bilaterally. Cardiovascular: Regular rate and rhythm with S1-S2. Gastrointestinal: Abdomen is soft, nontender, and nondistended with positive bowel sounds. Skin: Warm and dry. Extremities: No cyanosis, clubbing, or edema. Radial and pedal pulses intact. Musculoskeletal: Left lower extremity with dressing in place, No gross deformity noted. Neurological: Alert. Cranial nerves 2-12 are grossly intact. No gross focal deficits to casual conversation. Psychiatric: Pleasant and cooperative with normal mood and affect. Judgment and insight intact. Objective Data Vital Signs Vital Signs: Vital Signs - 24 hr 02/14/25 09:25 02/14/25 15:27 02/14/25 15:40 Temperature 97.6 F Pulse Rate 72 87 Respiratory Rate 12 14 Blood Pressure 125/54 L 99/63 L Pulse Oximetry 96 100 100 Oxygen Delivery Nasal Cannula Simple Face Mask Simple Face Mask Oxygen Flow Rate 4 6 6 02/14/25 15:55 02/14/25 16:10 02/14/25 16:15 Temperature Pulse Rate 81 83 Respiratory Rate 14 12 Blood Pressure 129/58 L 122/56 L Pulse Oximetry 100 95 85 L Oxygen Delivery Room Air Room Air Nasal Cannula Oxygen Flow Rate 3 02/14/25 16:25 02/14/25 16:40 02/14/25 17:00 Temperature 97.5 F L 97 F L Pulse Rate 81 82 82 Respiratory Rate 12 14 18 Blood Pressure 109/64 106/73 110/50 L Pulse Oximetry 93 96 100 Oxygen Delivery Nasal Cannula Nasal Cannula Oxygen Flow Rate 3 3 02/14/25 17:15 02/14/25 17:45 02/14/25 18:27 Temperature 97.4 F L 97.4 F L Pulse Rate 77 45 L 59 L Respiratory Rate 18 18 Blood Pressure 106/49 L 115/50 L Pulse Oximetry 99 91 Oxygen Delivery Oxygen Flow Rate 02/14/25 20:00 02/14/25 22:11 02/15/25 02:31 Temperature 98.2 F 98.7 F Pulse Rate 71 73 Respiratory Rate 16 16 Blood Pressure 100/56 L 107/60 Pulse Oximetry 100 100 100 Oxygen Delivery Nasal Cannula Oxygen Flow Rate 3 02/15/25 06:31 Temperature 98.7 F Pulse Rate 93 Respiratory Rate 20 Blood Pressure 102/50 L Pulse Oximetry 100 Oxygen Delivery Oxygen Flow Rate Intake/Output Intake/Output: Intake & Output 02/12/25 02/13/25 02/14/25 02/15/25 23:59 23:59 23:59 23:59 Intake Total 990 200 Output Total 1350 625 Balance -360 -425 Meds/Results Medications: Active Medications Generic Name Dose Route Start Last Admin Trade Name Freq PRN Reason Stop Dose Admin Atorvastatin Calcium 80 mg 02/14/25 21:00 02/14/25 20:42 Atorvastatin 40 Mg Tablet PO 80 mg HS JODIE Administration Cefdinir 300 mg 02/14/25 21:00 02/14/25 20:42 Cefdinir 300 Mg Capsule PO 300 mg Q12H JODIE Administration Cyclobenzaprine HCl 10 mg 02/14/25 16:46 Cyclobenzaprine Hcl 10 Mg Tablet PO Q8H PRN Muscle Spasm Dextrose 12.5 gm 02/14/25 05:57 Dextrose 50% 25 Gm/50 Ml Syringe IV PUSH PRN PRN Hypoglycemia Protocol Enoxaparin Sodium 30 mg 02/14/25 21:00 02/15/25 08:39 Enoxaparin 30 Mg/0.3 Ml Syringe SUB-Q 30 mg Q12HR JODIE Administration Escitalopram Oxalate 20 mg 02/15/25 09:00 02/15/25 08:39 Escitalopram Oxalate 10 Mg Tablet PO 20 mg DAILY JODIE Administration Famotidine 20 mg 02/14/25 21:00 02/15/25 08:39 Famotidine 20 Mg Tablet PO 20 mg Q12HR JODIE Administration Glucagon 1 mg 02/14/25 05:57 Glucagon For Inj 1 Mg Vial IM PRN PRN Hypoglycemia Protocol Glucose 15 gm 02/14/25 05:57 Glucose Oral Gel 15 Gm Of Glucse In 37.5 Gm Tube PO PRN PRN Hypoglycemia Protocol Hydromorphone HCl 1 mg 02/14/25 16:46 Hydromorphone Hcl Inj (*Crx) 1 Mg/Ml Syr IV PUSH Q2H PRN Breakthrough Pain Rated 7-10 or NPO Hydromorphone HCl 0.5 mg 02/14/25 16:46 Hydromorphone Hcl Inj (*Crx) 1 Mg/Ml Syr IV PUSH Q2H PRN Breakthrough Pain Rated 4-6 or NPO Dextrose 1,000 mls @ 100 mls/hr 02/14/25 05:57 Dextrose 5% 1,000 Ml IVPB PRN PRN Hypoglycemia Protocol Ibuprofen 800 mg in 200 mls @ 400 mls/hr 02/14/25 16:46 Caldolor 800 Mg/200 Ml IVPB Q6H PRN Breakthrough Pain Rated 1-3 or NPO Insulin Aspart 3 - 6 units 02/14/25 08:00 02/15/25 08:12 Insulin Aspart (*Bkc) 100 Units/Ml SUB-Q Not Given TIDWM JODIE Protocol Insulin Aspart 1 - 3 units 02/14/25 21:00 02/14/25 20:42 Insulin Aspart (*Bkc) 100 Units/Ml SUB-Q 1 units HS JODIE Administration Protocol Irbesartan 150 mg 02/15/25 09:00 02/15/25 08:38 Irbesartan 150 Mg Tablet PO 150 mg DAILY JODIE Administration Meclizine HCl 25 mg 02/14/25 16:46 Meclizine Hcl 25 Mg Tablet PO TID PRN dizziness Metformin HCl 500 mg 02/14/25 17:00 02/15/25 08:39 Metformin Hcl 500 Mg Tablet PO 500 mg BID JODIE Administration Morphine Sulfate 4 mg 02/14/25 05:00 02/14/25 07:57 Morphine Sulfate (*Crx) 4 Mg/Ml Inj IV PUSH 4 mg Q2H PRN Administration Pain Rated 7-10 Naloxone HCl 0.1 mg 02/14/25 16:46 Naloxone Hcl 0.4 Mg/Ml Vial IV PUSH Q2M PRN Opiate Reversal Ondansetron HCl 4 mg 02/14/25 05:00 Ondansetron Inj 4 Mg/2 Ml Vial IV PUSH Q4H PRN Nausea Ondansetron HCl 4 mg 02/14/25 16:46 Ondansetron Inj 4 Mg/2 Ml Vial IV PUSH Q4H PRN Nausea And Vomiting Oxycodone/Acetaminophen 1 tablet 02/14/25 16:46 Oxycodone/Acetaminophen (*Crx) 5-325 Mg Tablet PO Q4H PRN Pain Rated 4-6 Oxycodone/Acetaminophen 1 tab 02/14/25 16:46 Oxycodone/Acetaminophen (*Crx) 10-325 Mg Tablet PO Q6H PRN Pain Rated 7-10 Polyethylene Glycol 17 gm 02/15/25 09:00 Polyethylene Glycol 3350 17 Gm Powd.Pack PO QAM JODIE Senna/Docusate Sodium 2 tab 02/14/25 17:00 02/15/25 08:37 Senna/Docusate Sodium Tablet PO Not Given BID JODIE Tramadol HCl 50 mg 02/14/25 16:46 Tramadol Hcl (*Crx) 50 Mg Tablet PO Q4H PRN Pain Rated 1-3 Radiology Results: ITS Impressions Chest X-Ray 02/14/25 06:29 Impression: Clear lungs. Hip/Pelvis X-Ray 02/14/25 06:29 Impression: Acute subcapital fracture of the left femoral neck, as detailed above. Hip X-Ray 02/14/25 16:38 IMPRESSION: Expected postoperative appearance of a left-sided total hip arthroplasty, as detailed above. Labs Labs: Laboratory Results - last 24 hr 02/14/25 02/14/25 02/14/25 11:46 15:47 17:00 WBC RBC Hgb Hct MCV MCH MCHC RDW Plt Count MPV Immature Gran % (Auto) Neut % (Auto) Lymph % (Auto) [place] % (Auto) Eos % (Auto) Baso % (Auto) Lymph # (Auto) [place] # (Auto) Eos # (Auto) Baso # (Auto) Abs Immat Gran (auto) Absolute Neuts (auto) Absolute Nucleated RBC Nucleated RBC % Sodium Potassium Chloride Carbon Dioxide Anion Gap BUN Creatinine Estim Creat Clear Calc Estimated GFR Glucose POC Capillary Glucose 141 H 136 H 147 H Calcium Magnesium 02/14/25 02/15/25 02/15/25 20:32 07:06 07:07 WBC 11.0 H RBC 3.64 L Hgb 9.0 L Hct 29.6 L MCV 81.3 MCH 24.7 L MCHC 30.4 L RDW 16.3 H Plt Count 270 MPV 9.6 Immature Gran % (Auto) 0.4 Neut % (Auto) 66.2 Lymph % (Auto) 25.2 [place] % (Auto) 7.7 Eos % (Auto) 0.2 Baso % (Auto) 0.3 Lymph # (Auto) 2.78 [place] # (Auto) 0.9 H Eos # (Auto) 0.0 Baso # (Auto) 0.0 Abs Immat Gran (auto) 0.04 H Absolute Neuts (auto) 7.3 H Absolute Nucleated RBC 0.000 Nucleated RBC % 0.0 Sodium 136 L Potassium 4.2 Chloride 107 Carbon Dioxide 19 L Anion Gap 10 BUN 17 D Creatinine 0.85 Estim Creat Clear Calc 64 Estimated GFR > 60 Glucose 160 H POC Capillary Glucose 227 H Calcium 8.5 Magnesium 1.6 02/15/25 07:41 WBC RBC Hgb Hct MCV MCH MCHC RDW Plt Count MPV Immature Gran % (Auto) Neut % (Auto) Lymph % (Auto) [place] % (Auto) Eos % (Auto) Baso % (Auto) Lymph # (Auto) [place] # (Auto) Eos # (Auto) Baso # (Auto) Abs Immat Gran (auto) Absolute Neuts (auto) Absolute Nucleated RBC Nucleated RBC % Sodium Potassium Chloride Carbon Dioxide Anion Gap BUN Creatinine Estim Creat Clear Calc Estimated GFR Glucose POC Capillary Glucose 166 H Calcium Magnesium
--- NOTE | 2025-02-15 09:58 | PCOTNOTE ---
Attempted OT evaluation, patient declines at this time due to fatigue and pain. Will follow.
[2025-02-15] MEDS: CEFDINIR 300 MG CAPSULE PO ×2 (10:20→20:17)
[2025-02-15 11:59] LABS: Glucose Point of Care 167 mg/dl (65-105)
--- NOTE | 2025-02-15 14:23 | PC.NURSE ---
On 02/15/25, the MIXING MACHINE OPERATOR, Jeannine Clifford, provided care and completed [facility] documentation on this patient. I have reviewed the MIXING MACHINE OPERATOR's documentation and agree with the findings.
[2025-02-15] MEDS: SENNA/DOCUSATE SODIUM TABLET 2 TAB PO (17:03)
[2025-02-15 17:32] LABS: Glucose Point of Care 290 mg/dl (65-105)
[2025-02-15] MEDS: INSULIN ASPART (*BKC) 100 UNITS/ML SUB-Q (18:18)
[2025-02-15] MEDS: ATORVASTATIN 40 MG TABLET 80 MG PO (20:17)
[2025-02-15] MEDS: traMADol HCL (*CRX) 50 MG TABLET PO (20:19)
[2025-02-15 21:01] LABS: Glucose Point of Care 126 mg/dl (65-105)
[2025-02-15] MEDS: oxyCODONE/ACETAMINOPHEN (*CRX) 10-325 MG TABLET 1 TAB PO (22:31)
[2025-02-16 05:16] VITALS: BP 101/59; PULSE 90; RESP 18; TEMP 36.9; O2SAT 99
[2025-02-16] MEDS: oxyCODONE/ACETAMINOPHEN (*CRX) 10-325 MG TABLET 1 TAB PO (05:47)
[2025-02-16 07:38] LABS: Basophils Percent Auto 0.3 % (0.2-1.2); Eosinophils Percent Auto 0.2 % (0-4.4); Hematocrit 29.4 % (37.0-47.0); Hemoglobin 8.9 g/dL (12.0-15.0); Immature Granulocyte Absolute 0.05 K/mm3 (0.00-0.031); Immature Granulocyte Percent A 0.4 % (0-0.5); Lymphocytes Absolute Auto 3.05 K/mm3 (0.9-3.2); Lymphocytes Percent Auto 23.6 % (18.3-44.2); Mean Corpuscular HGB Conc 30.3 g/dl (32-36); Mean Corpuscular Hemoglobin 24.5 pg (26-34); Mean Corpuscular Volume 80.8 fl (80-100); Mean Platelet Volume 10.2 fl (7.4-10.4); Monocytes Absolute Auto 1.3 K/mm3 (0.1-0.6); Monocytes Percent Auto 9.7 % (2.6-8.5); Neutrophils Absolute Auto 8.5 K/mm3 (1.3-6.7); Neutrophils Percent Auto 65.8 % (45.5-73.1); Platelet Count Result 266 k/mm3 (150-375); Red Blood Count 3.64 M/mm3 (4.2-5.4); Red Cell Distribution Width 16.3 % (11.5-14.5); White Blood Count 12.9 K/mm3 (4.5-10.0)
[2025-02-16 07:46] LABS: Alanine Aminotransferase 22 U/L (6-35); Albumin Level 3.2 g/dL (3.5-5.1); Alkaline Phosphatase 57 U/L (38-126); Anion Gap 7 mmol/L (4-12); Aspartate Amino Transferase 31 U/L (14-36); Bilirubin,Total 1.2 mg/dL (0.2-1.3); Blood Urea Nitrogen 16 mg/dL (7-17); Calcium 8.2 mg/dL (8.4-10.2); Carbon Dioxide 19 mmol/L (22-30); Chloride 105 mmol/L (98-107); Estimated CRCL calculation 67 ml/min; Estimated Glomerular Filt Rate > 60; Glucose 128 mg/dL (65-110); Magnesium 1.7 mg/dL (1.6-2.3); Potassium 4.4 mmol/L (3.4-5.0); Sodium 131 mmol/L (137-145)
[2025-02-16 08:04] LABS: Glucose Point of Care 137 mg/dl (65-105)
[2025-02-16] MEDS: ESCITALOPRAM OXALATE 10 MG TABLET 20 MG PO (08:30)
[2025-02-16] MEDS: SENNA/DOCUSATE SODIUM TABLET 2 TAB PO ×2 (08:30→16:31)
[2025-02-16] MEDS: CEFDINIR 300 MG CAPSULE PO ×2 (08:30→21:34)
[2025-02-16] MEDS: ENOXAPARIN 30 MG/0.3 ML SYRINGE SUB-Q ×2 (08:31→21:35)
[2025-02-16] MEDS: metFORMIN HCL 500 MG TABLET PO ×2 (08:31→16:32)
[2025-02-16] MEDS: polyethylene glycoL 3350 17 GM POWD.PACK PO (08:31)
[2025-02-16] MEDS: IRBESARTAN 150 MG TABLET PO (08:31)
[2025-02-16] MEDS: FAMOTIDINE 20 MG TABLET PO ×2 (08:31→21:34)
[2025-02-16 11:46] LABS: Glucose Point of Care 149 mg/dl (65-105)
--- NOTE | 2025-02-16 12:39 | PM.IMPN ---
Progress Note: A&P Assessment and Plan (1) Closed left hip fracture: Code(s): S72.002A - Fracture of unspecified part of neck of left femur, initial encounter for closed fracture Status: Acute (2) Chronic antibiotic suppression: Code(s): Z79.2 - intermediate teacher (current) use of antibiotics Status: Acute (3) Hypertension: Code(s): I10 - Essential (primary) hypertension Status: Acute (4) Chronic kidney disease, stage 3a: Code(s): N18.31 - Chronic kidney disease, stage 3a Status: Chronic (5) Type 2 diabetes mellitus: Code(s): E11.9 - Type 2 diabetes mellitus without complications Status: Acute Plan This is a very pleasant 74-year-old female with hypertension, hyperlipidemia, type 2 diabetes mellitus, gastroesophageal reflux disease, depression, spinal stenosis status post L2-L3 posterior spinal fusion done for cauda equina syndrome on 07/14/2024, epidural abscesses status post laminectomy at C3, C4, C6, T1, T3 with evacuation of epidural abscess and irrigation and debridement of lumbar spine incision and MSSA bacteremia in August 2024 on cefdinir 300 mg q.12 hours for chronic suppression through May 04, 2025 (followed by Dr. Viky Wagoner at [facility]) who presented to the emergency department via EMS from home for evaluation of hip pain after a fall. Not long prior to arrival she was using her walker to go to her bedroom but she lost her balance as she was trying to carry something in 1 hand and use her walker with the other. She fell down onto her left side and had immediate pain in her left hip and she was unable to get herself up. She denies syncope, near syncope, chest pain, pleuritic pain, shortness of breath, nausea, vomiting, and diarrhea. No recent cold or flu symptoms. In the ED: Blood pressure was a bit elevated on arrival in the remainder for vital signs were stable. Labs are significant for WBC count 12.1, hemoglobin 11.0, MCV 79.9, sodium 136, BUN 33, creatinine 1.03, glucose 117. Radiographs showed a left femoral neck fracture. She is being admitted in this setting for pain control and orthopedic consultation. Status post bipolar hemiarthroplasty left hip 02/14/2025. Continue PT OT. Mild leukocytosis noted. No signs of infection. Continue to monitor. Mild postop hyponatremia. Will continue to monitor. She will need placement. 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 On cefdinir 300 mg every 12 hours for chronic suppression through May 04, 2025. DVT prophylaxis on Lovenox Code status full code Subjective Date/time seen: 02/16/25 12:39 Interval history: No overnight events. Complains of pain in the left hip with the surgery was done. Working with therapy. Review of Systems Review of Systems: All systems reviewed & are unremarkable except as noted in HPI and below Exam Narrative: General: Nontoxic-appearing female supine in bed in no acute distress HEENT: PERRL, EOMI. Sclera anicteric. Tacky mucous membranes. Neck: Supple. Respiratory: Lungs are clear to auscultation bilaterally. Cardiovascular: Regular rate and rhythm with S1-S2. Gastrointestinal: Abdomen is soft, nontender, and nondistended with positive bowel sounds. Skin: Warm and dry. Extremities: No cyanosis, clubbing, or edema. Radial and pedal pulses intact. Musculoskeletal: Left lower extremity with dressing in place, No gross deformity noted. Neurological: Alert. Cranial nerves 2-12 are grossly intact. No gross focal deficits to casual conversation. Psychiatric: Pleasant and cooperative with normal mood and affect. Judgment and insight intact. Objective Data Vital Signs Vital Signs: Vital Signs - 24 hr 02/15/25 13:30 02/15/25 18:00 02/15/25 18:00 Temperature 98.5 F 98.2 F Pulse Rate 87 94 Respiratory Rate 16 16 Blood Pressure 113/55 L 110/45 L Pulse Oximetry 100 100 98 Oxygen Delivery Room Air 02/15/25 20:00 02/15/25 22:00 02/16/25 05:16 Temperature 98.6 F 98.4 F Pulse Rate 97 90 Respiratory Rate 18 18 Blood Pressure 136/61 101/59 L Pulse Oximetry 98 99 Oxygen Delivery Room Air 02/16/25 08:00 02/16/25 08:04 Temperature Pulse Rate Respiratory Rate Blood Pressure Pulse Oximetry Oxygen Delivery Room Air Room Air Intake/Output Intake/Output: Intake & Output 02/13/25 02/14/25 02/15/25 02/16/25 23:59 23:59 23:59 23:59 Intake Total 990 320 440 Output Total 1350 919 550 Balance -360 -305 -110 Meds/Results Medications: Active Medications Generic Name Dose Route Start Last Admin Trade Name Freq PRN Reason Stop Dose Admin Atorvastatin Calcium 80 mg 02/14/25 21:00 02/15/25 20:17 Atorvastatin 40 Mg Tablet PO 80 mg HS JODIE Administration Cefdinir 300 mg 02/14/25 21:00 02/16/25 08:30 Cefdinir 300 Mg Capsule PO 300 mg Q12H JODIE Administration Cyclobenzaprine HCl 10 mg 02/14/25 16:46 Cyclobenzaprine Hcl 10 Mg Tablet PO Q8H PRN Muscle Spasm Dextrose 12.5 gm 02/14/25 05:57 Dextrose 50% 25 Gm/50 Ml Syringe IV PUSH PRN PRN Hypoglycemia Protocol Enoxaparin Sodium 30 mg 02/14/25 21:00 02/16/25 08:31 Enoxaparin 30 Mg/0.3 Ml Syringe SUB-Q 30 mg Q12HR JODIE Administration Escitalopram Oxalate 20 mg 02/15/25 09:00 02/16/25 08:30 Escitalopram Oxalate 10 Mg Tablet PO 20 mg DAILY JODIE Administration Famotidine 20 mg 02/14/25 21:00 02/16/25 08:31 Famotidine 20 Mg Tablet PO 20 mg Q12HR JODIE Administration Glucagon 1 mg 02/14/25 05:57 Glucagon For Inj 1 Mg Vial IM PRN PRN Hypoglycemia Protocol Glucose 15 gm 02/14/25 05:57 Glucose Oral Gel 15 Gm Of Glucse In 37.5 Gm Tube PO PRN PRN Hypoglycemia Protocol Hydromorphone HCl 1 mg 02/14/25 16:46 Hydromorphone Hcl Inj (*Crx) 1 Mg/Ml Syr IV PUSH Q2H PRN Breakthrough Pain Rated 7-10 or NPO Hydromorphone HCl 0.5 mg 02/14/25 16:46 Hydromorphone Hcl Inj (*Crx) 1 Mg/Ml Syr IV PUSH Q2H PRN Breakthrough Pain Rated 4-6 or NPO Dextrose 1,000 mls @ 100 mls/hr 02/14/25 05:57 Dextrose 5% 1,000 Ml IVPB PRN PRN Hypoglycemia Protocol Ibuprofen 800 mg in 200 mls @ 400 mls/hr 02/14/25 16:46 Caldolor 800 Mg/200 Ml IVPB Q6H PRN Breakthrough Pain Rated 1-3 or NPO Insulin Aspart 3 - 6 units 02/14/25 08:00 02/16/25 11:51 Insulin Aspart (*Bkc) 100 Units/Ml SUB-Q Not Given TIDWM [facility] Protocol Insulin Aspart 1 - 3 units 02/14/25 21:00 02/15/25 22:27 Insulin Aspart (*Bkc) 100 Units/Ml SUB-Q Not Given HS [facility] Protocol Irbesartan 150 mg 02/15/25 09:00 02/16/25 08:31 Irbesartan 150 Mg Tablet PO 150 mg DAILY JODIE Administration Meclizine HCl 25 mg 02/14/25 16:46 Meclizine Hcl 25 Mg Tablet PO TID PRN dizziness Metformin HCl 500 mg 02/14/25 17:00 02/16/25 08:31 Metformin Hcl 500 Mg Tablet PO 500 mg BID JODIE Administration Morphine Sulfate 4 mg 02/14/25 05:00 02/14/25 07:57 Morphine Sulfate (*Crx) 4 Mg/Ml Inj IV PUSH 4 mg Q2H PRN Administration Pain Rated 7-10 Naloxone HCl 0.1 mg 02/14/25 16:46 Naloxone Hcl 0.4 Mg/Ml Vial IV PUSH Q2M PRN Opiate Reversal Ondansetron HCl 4 mg 02/14/25 05:00 Ondansetron Inj 4 Mg/2 Ml Vial IV PUSH Q4H PRN Nausea Ondansetron HCl 4 mg 02/14/25 16:46 Ondansetron Inj 4 Mg/2 Ml Vial IV PUSH Q4H PRN Nausea And Vomiting Oxycodone/Acetaminophen 1 tablet 02/14/25 16:46 Oxycodone/Acetaminophen (*Crx) 5-325 Mg Tablet PO Q4H PRN Pain Rated 4-6 Oxycodone/Acetaminophen 1 tab 02/14/25 16:46 02/16/25 05:47 Oxycodone/Acetaminophen (*Crx) 10-325 Mg Tablet PO 1 tab Q6H PRN Administration Pain Rated 7-10 Polyethylene Glycol 17 gm 02/15/25 09:00 02/16/25 08:31 Polyethylene Glycol 3350 17 Gm Powd.Pack PO 17 gm QAM JODIE Administration Senna/Docusate Sodium 2 tab 02/14/25 17:00 02/16/25 08:30 Senna/Docusate Sodium Tablet PO 2 tab BID JODIE Administration Tramadol HCl 50 mg 02/14/25 16:46 02/15/25 20:19 Tramadol Hcl (*Crx) 50 Mg Tablet PO 50 mg Q4H PRN Administration Pain Rated 1-3 Radiology Results: ITS Impressions Chest X-Ray 02/14/25 06:29 Impression: Clear lungs. Hip/Pelvis X-Ray 02/14/25 06:29 Impression: Acute subcapital fracture of the left femoral neck, as detailed above. Hip X-Ray 02/14/25 16:38 IMPRESSION: Expected postoperative appearance of a left-sided total hip arthroplasty, as detailed above. Labs Labs: Laboratory Results - last 24 hr 02/15/25 02/15/25 02/16/25 16:51 20:41 07:08 WBC 12.9 H RBC 3.64 L Hgb 8.9 L Hct 29.4 L MCV 80.8 MCH 24.5 L MCHC 30.3 L RDW 16.3 H Plt Count 266 MPV 10.2 Immature Gran % (Auto) 0.4 Neut % (Auto) 65.8 Lymph % (Auto) 23.6 [place] % (Auto) 9.7 H Eos % (Auto) 0.2 Baso % (Auto) 0.3 Lymph # (Auto) 3.05 [place] # (Auto) 1.3 H Eos # (Auto) 0.0 Baso # (Auto) 0.0 Abs Immat Gran (auto) 0.05 H Absolute Neuts (auto) 8.5 H Absolute Nucleated RBC 0.000 Nucleated RBC % 0.0 Sodium 131 L Potassium 4.4 Chloride 105 Carbon Dioxide 19 L Anion Gap 7 BUN 16 Creatinine 0.82 Estim Creat Clear Calc 67 Estimated GFR > 60 Glucose 128 H POC Capillary Glucose 290 H 126 H Calcium 8.2 L Magnesium 1.7 Total Bilirubin 1.2 AST 31 ALT 22 Alkaline Phosphatase 57 Total Protein 6.0 L Albumin 3.2 L 02/16/25 02/16/25 07:29 11:35 WBC RBC Hgb Hct MCV MCH MCHC RDW Plt Count MPV Immature Gran % (Auto) Neut % (Auto) Lymph % (Auto) [place] % (Auto) Eos % (Auto) Baso % (Auto) Lymph # (Auto) [place] # (Auto) Eos # (Auto) Baso # (Auto) Abs Immat Gran (auto) Absolute Neuts (auto) Absolute Nucleated RBC Nucleated RBC % Sodium Potassium Chloride Carbon Dioxide Anion Gap BUN Creatinine Estim Creat Clear Calc Estimated GFR Glucose POC Capillary Glucose 137 H 149 H Calcium Magnesium Total Bilirubin AST ALT Alkaline Phosphatase Total Protein Albumin
[2025-02-16 14:00] VITALS: BP 106/44; PULSE 104; RESP 20; TEMP 36.3; O2SAT 92
[2025-02-16 17:01] LABS: Glucose Point of Care 191 mg/dl (65-105)
[2025-02-16] MEDS: ATORVASTATIN 40 MG TABLET 80 MG PO (21:34)
[2025-02-16] MEDS: traMADol HCL (*CRX) 50 MG TABLET PO (21:34)
[2025-02-16 21:45] LABS: Glucose Point of Care 137 mg/dl (65-105)
[2025-02-16 22:00] VITALS: BP 151/78; PULSE 103; RESP 18; TEMP 36.4; O2SAT 91
[2025-02-17 05:51] VITALS: BP 141/71; PULSE 88; RESP 18; TEMP 36.2; O2SAT 95
[2025-02-17 06:36] LABS: Basophils Absolute Auto 0.1 K/mm3 (0.0-0.1); Basophils Percent Auto 0.4 % (0.2-1.2); Eosinophils Absolute Auto 0.2 K/mm3 (0-0.3); Eosinophils Percent Auto 1.3 % (0-4.4); Hemoglobin 8.9 g/dL (12.0-15.0); Immature Granulocyte Absolute 0.05 K/mm3 (0.00-0.031); Immature Granulocyte Percent A 0.4 % (0-0.5); Lymphocytes Absolute Auto 4.09 K/mm3 (0.9-3.2); Lymphocytes Percent Auto 34.2 % (18.3-44.2); Mean Corpuscular HGB Conc 30.7 g/dl (32-36); Mean Corpuscular Hemoglobin 24.3 pg (26-34); Mean Platelet Volume 10.2 fl (7.4-10.4); Monocytes Absolute Auto 1.1 K/mm3 (0.1-0.6); Monocytes Percent Auto 9.5 % (2.6-8.5); Neutrophils Absolute Auto 6.5 K/mm3 (1.3-6.7); Neutrophils Percent Auto 54.2 % (45.5-73.1); Platelet Count Result 292 k/mm3 (150-375); Red Blood Count 3.67 M/mm3 (4.2-5.4); Red Cell Distribution Width 16.3 % (11.5-14.5)
[2025-02-17 06:54] LABS: Alanine Aminotransferase 19 U/L (6-35); Albumin Level 3.2 g/dL (3.5-5.1); Alkaline Phosphatase 91 U/L (38-126); Anion Gap 6 mmol/L (4-12); Aspartate Amino Transferase 21 U/L (14-36); Blood Urea Nitrogen 17 mg/dL (7-17); Calcium 8.7 mg/dL (8.4-10.2); Carbon Dioxide 25 mmol/L (22-30); Chloride 102 mmol/L (98-107); Estimated CRCL calculation 60 ml/min; Estimated Glomerular Filt Rate 60; Glucose 116 mg/dL (65-110); Magnesium 1.7 mg/dL (1.6-2.3); Potassium 3.9 mmol/L (3.4-5.0); Sodium 133 mmol/L (137-145)
--- NOTE | 2025-02-17 07:53 | PCOTNOTE ---
The patient treatment was not able to be completed. Patient is eating breakfast. Will plan to continue treatment per plan of care.
[2025-02-17 08:00] VITALS: O2SAT 97
[2025-02-17 08:11] LABS: Glucose Point of Care 130 mg/dl (65-105)
[2025-02-17] MEDS: FAMOTIDINE 20 MG TABLET PO ×2 (08:31→21:07)
[2025-02-17] MEDS: SENNA/DOCUSATE SODIUM TABLET 2 TAB PO (08:31)
[2025-02-17] MEDS: metFORMIN HCL 500 MG TABLET PO ×2 (08:31→16:51)
[2025-02-17] MEDS: ESCITALOPRAM OXALATE 10 MG TABLET 20 MG PO (08:31)
[2025-02-17] MEDS: IRBESARTAN 150 MG TABLET PO (08:31)
[2025-02-17] MEDS: CEFDINIR 300 MG CAPSULE PO ×2 (08:31→21:07)
[2025-02-17] MEDS: ENOXAPARIN 30 MG/0.3 ML SYRINGE SUB-Q ×2 (08:35→21:07)
--- NOTE | 2025-02-17 08:58 | P.PNOP_ITS ---
Progress Note: A&P Assessment and Plan (1) Closed fracture of neck of left femur: Qualifiers: Encounter type: initial encounter Qualified Code(s): S72.002A - Fracture of unspecified part of neck of left femur, initial encounter for closed fracture Code(s): S72.002A - Fracture of unspecified part of neck of left femur, initial encounter for closed fracture Status: Acute Assessment and Plan: Postop day 3: Left Bipolar hemiarthroplasty. Patient tolerated procedure well. No complications. Pain manageable with pain medication. No numbness or tingling. We had a lengthy discussion regarding postoperative wound care, limitations, expectations, and exercises. Patient shows good understanding. She has had initial physical therapy and is tolerating it well. Okay for discharge from orthopedic stand point. Patient current plan is to discharge to [facility]. Ortho instructions: Left Bipolar hemiarthroplasty 02/14/25. * D/C to SNF/rehab * Follow up and xray in 4-6 weeks in office. Please call [facility] (Dr. Riccardo Stark) at for appointment details. * Wound Care: Remove Provena dressing at 7 days post op. May discard entire dressing and box at that time. Drain canister as needed. Please call our office if there is any drainage. Remove steristrips at 14 days post op. May shower. No soaking. * PT: Weight bearing as tolerated with a walker * DVT prophylaxis: continue Lovenox for 30 days total * Pain medication: Oxycodone Subjective Subjective Date/Time Seen: 02/17/25 08:58 Interval history: Patient resting comfortably. No complaints. No pain at rest. No drainage from dressing. She has been up walking with therapy. Using a walker. Eager to rehab. No other complaints. Review of Systems Review of Systems: All systems reviewed & are unremarkable except as noted in HPI and below Exam Narrative: 74 y/o Pleasant overweight 74 y/o female . A&O x3. No clinical deformity. Dressing intact. No drainage in canister. No erythema, ecchymosis, warmth. No rash or lesions. Mildly tender. Slight swelling. No calf or thigh pain to palpation. No distal edema. Light touch sensation intact. Dorsalis pedis pulse normal. Objective Data Vital Signs Vital Signs: Vital Signs - 24 hr 02/16/25 14:00 02/16/25 20:00 02/16/25 22:00 Temperature 97.4 F L 97.6 F Pulse Rate 104 H 103 H Respiratory Rate 20 18 Blood Pressure 106/44 L 151/78 H Pulse Oximetry 92 91 Oxygen Delivery Room Air 02/17/25 05:51 Temperature 97.2 F L Pulse Rate 88 Respiratory Rate 18 Blood Pressure 141/71 H Pulse Oximetry 95 Oxygen Delivery Intake/Output Intake/Output: Intake & Output 02/14/25 02/15/25 02/16/25 02/17/25 23:59 23:59 23:59 23:59 Intake Total 964 102 0356 300 Output Total 1350 625 550 300 Balance -360 -305 2330 0 Meds/Results Medications: Active Medications Generic Name Dose Route Start Last Admin Trade Name Freq PRN Reason Stop Dose Admin Atorvastatin Calcium 80 mg 02/14/25 21:00 02/16/25 21:34 Atorvastatin 40 Mg Tablet PO 80 mg HS JODIE Administration Cefdinir 300 mg 02/14/25 21:00 02/17/25 08:31 Cefdinir 300 Mg Capsule PO 300 mg Q12H JODIE Administration Cyclobenzaprine HCl 10 mg 02/14/25 16:46 Cyclobenzaprine Hcl 10 Mg Tablet PO Q8H PRN Muscle Spasm Dextrose 12.5 gm 02/14/25 05:57 Dextrose 50% 25 Gm/50 Ml Syringe IV PUSH PRN PRN Hypoglycemia Protocol Enoxaparin Sodium 30 mg 02/14/25 21:00 02/17/25 08:35 Enoxaparin 30 Mg/0.3 Ml Syringe SUB-Q 30 mg Q12HR JODIE Administration Escitalopram Oxalate 20 mg 02/15/25 09:00 02/17/25 08:31 Escitalopram Oxalate 10 Mg Tablet PO 20 mg DAILY JODIE Administration Famotidine 20 mg 02/14/25 21:00 02/17/25 08:31 Famotidine 20 Mg Tablet PO 20 mg Q12HR JODIE Administration Glucagon 1 mg 02/14/25 05:57 Glucagon For Inj 1 Mg Vial IM PRN PRN Hypoglycemia Protocol Glucose 15 gm 02/14/25 05:57 Glucose Oral Gel 15 Gm Of Glucse In 37.5 Gm Tube PO PRN PRN Hypoglycemia Protocol Hydromorphone HCl 1 mg 02/14/25 16:46 Hydromorphone Hcl Inj (*Crx) 1 Mg/Ml Syr IV PUSH Q2H PRN Breakthrough Pain Rated 7-10 or NPO Hydromorphone HCl 0.5 mg 02/14/25 16:46 Hydromorphone Hcl Inj (*Crx) 1 Mg/Ml Syr IV PUSH Q2H PRN Breakthrough Pain Rated 4-6 or NPO Dextrose 1,000 mls @ 100 mls/hr 02/14/25 05:57 Dextrose 5% 1,000 Ml IVPB PRN PRN Hypoglycemia Protocol Ibuprofen 800 mg in 200 mls @ 400 mls/hr 02/14/25 16:46 Caldolor 800 Mg/200 Ml IVPB Q6H PRN Breakthrough Pain Rated 1-3 or NPO Insulin Aspart 3 - 6 units 02/14/25 08:00 02/17/25 08:29 Insulin Aspart (*Bkc) 100 Units/Ml SUB-Q Not Given TIDWM [facility] Protocol Insulin Aspart 1 - 3 units 02/14/25 21:00 02/16/25 21:34 Insulin Aspart (*Bkc) 100 Units/Ml SUB-Q Not Given HS [facility] Protocol Irbesartan 150 mg 02/15/25 09:00 02/17/25 08:31 Irbesartan 150 Mg Tablet PO 150 mg DAILY JODIE Administration Meclizine HCl 25 mg 02/14/25 16:46 Meclizine Hcl 25 Mg Tablet PO TID PRN dizziness Metformin HCl 500 mg 02/14/25 17:00 02/17/25 08:31 Metformin Hcl 500 Mg Tablet PO 500 mg BID JODIE Administration Morphine Sulfate 4 mg 02/14/25 05:00 02/14/25 07:57 Morphine Sulfate (*Crx) 4 Mg/Ml Inj IV PUSH 4 mg Q2H PRN Administration Pain Rated 7-10 Naloxone HCl 0.1 mg 02/14/25 16:46 Naloxone Hcl 0.4 Mg/Ml Vial IV PUSH Q2M PRN Opiate Reversal Ondansetron HCl 4 mg 02/14/25 05:00 Ondansetron Inj 4 Mg/2 Ml Vial IV PUSH Q4H PRN Nausea Ondansetron HCl 4 mg 02/14/25 16:46 Ondansetron Inj 4 Mg/2 Ml Vial IV PUSH Q4H PRN Nausea And Vomiting Oxycodone/Acetaminophen 1 tablet 02/14/25 16:46 Oxycodone/Acetaminophen (*Crx) 5-325 Mg Tablet PO Q4H PRN Pain Rated 4-6 Oxycodone/Acetaminophen 1 tab 02/14/25 16:46 02/16/25 05:47 Oxycodone/Acetaminophen (*Crx) 10-325 Mg Tablet PO 1 tab Q6H PRN Administration Pain Rated 7-10 Polyethylene Glycol 17 gm 02/15/25 09:00 02/17/25 08:35 Polyethylene Glycol 3350 17 Gm Powd.Pack PO Not Given QAM JODIE Senna/Docusate Sodium 2 tab 02/14/25 17:00 02/17/25 08:31 Senna/Docusate Sodium Tablet PO 2 tab BID JODIE Administration Tramadol HCl 50 mg 02/14/25 16:46 02/16/25 21:34 Tramadol Hcl (*Crx) 50 Mg Tablet PO 50 mg Q4H PRN Administration Pain Rated 1-3 Radiology Results: ITS Impressions Chest X-Ray 02/14/25 06:29 Impression: Clear lungs. Hip/Pelvis X-Ray 02/14/25 06:29 Impression: Acute subcapital fracture of the left femoral neck, as detailed above. Hip X-Ray 02/14/25 16:38 IMPRESSION: Expected postoperative appearance of a left-sided total hip arthroplasty, as detailed above. Labs Labs: Laboratory Results - last 24 hr 02/16/25 02/16/25 02/16/25 11:35 16:47 20:42 WBC RBC Hgb Hct MCV MCH MCHC RDW Plt Count MPV Immature Gran % (Auto) Neut % (Auto) Lymph % (Auto) [place] % (Auto) Eos % (Auto) Baso % (Auto) Lymph # (Auto) [place] # (Auto) Eos # (Auto) Baso # (Auto) Abs Immat Gran (auto) Absolute Neuts (auto) Absolute Nucleated RBC Nucleated RBC % Sodium Potassium Chloride Carbon Dioxide Anion Gap BUN Creatinine Estim Creat Clear Calc Estimated GFR Glucose POC Capillary Glucose 149 H 191 H 137 H Calcium Magnesium Total Bilirubin AST ALT Alkaline Phosphatase Total Protein Albumin 02/17/25 02/17/25 06:11 08:08 WBC 12.0 H RBC 3.67 L Hgb 8.9 L Hct 29.0 L MCV 79.0 L MCH 24.3 L MCHC 30.7 L RDW 16.3 H Plt Count 292 MPV 10.2 Immature Gran % (Auto) 0.4 Neut % (Auto) 54.2 Lymph % (Auto) 34.2 [place] % (Auto) 9.5 H Eos % (Auto) 1.3 Baso % (Auto) 0.4 Lymph # (Auto) 4.09 H [place] # (Auto) 1.1 H Eos # (Auto) 0.2 Baso # (Auto) 0.1 Abs Immat Gran (auto) 0.05 H Absolute Neuts (auto) 6.5 Absolute Nucleated RBC 0.000 Nucleated RBC % 0.0 Sodium 133 L Potassium 3.9 Chloride 102 Carbon Dioxide 25 Anion Gap 6 BUN 17 Creatinine 0.92 Estim Creat Clear Calc 60 Estimated GFR 60 Glucose 116 H POC Capillary Glucose 130 H Calcium 8.7 Magnesium 1.7 Total Bilirubin 1.0 AST 21 ALT 19 Alkaline Phosphatase 91 Total Protein 6.0 L Albumin 3.2 L
[2025-02-17] MEDS: traMADol HCL (*CRX) 50 MG TABLET PO ×2 (10:40→21:07)
--- NOTE | 2025-02-17 11:34 | PCNFU ---
Nutrition Follow-Up Complete: Inadequate oral intake related to NPO as evidenced by diet orders Goal:Adequate PO intake when diet is advanced Pt progressing towards goal Pt current nutrition is Diabetic. Nutrition recommendation: Add Ensure Hi Protein BID for supplement Last recorded weight is 104.6 kg. Bowel Motility: +BM 02/17 Labs Reviewed: Hgb:8.9, HCT:29, Alb:3.2, NA:133, Glu:130 Meds Noted: insulin, metformin Skin: WNL Additional Notes: Pt diet advanced to diabetic, intake 50-75% at this time. Pt states she drinks Ensure Hi protein at home, will send as supplement. Monitoring diet advancement, intakes, weights, labs, plan of care Follow up in 5 days
[2025-02-17 12:23] LABS: Glucose Point of Care 159 mg/dl (65-105)
--- NOTE | 2025-02-17 12:41 | P.DS_ITS ---
DS: Admitting Diagnosis Discharge Date 02/17/2025 Admitting Diagnosis Fall DS: Discharge Diagnosis Discharge Diagnosis (1) Closed left hip fracture: Code(s): S72.002A - Fracture of unspecified part of neck of left femur, initial encounter for closed fracture Status: Acute (2) Chronic antibiotic suppression: Code(s): Z79.2 - residential (current) use of antibiotics Status: Acute (3) Hypertension: Code(s): I10 - Essential (primary) hypertension Status: Acute (4) Chronic kidney disease, stage 3a: Code(s): N18.31 - Chronic kidney disease, stage 3a Status: Chronic (5) Type 2 diabetes mellitus: Code(s): E11.9 - Type 2 diabetes mellitus without complications Status: Acute DS: Summary Hospital Course Hospital Course: This is a very pleasant 74-year-old female with hypertension, hyperlipidemia, type 2 diabetes mellitus, gastroesophageal reflux disease, depression, spinal stenosis status post L2-L3 posterior spinal fusion done for cauda equina syndrome on 07/14/2024, epidural abscesses status post laminectomy at C3, C4, C6, T1, T3 with evacuation of epidural abscess and irrigation and debridement of lumbar spine incision and MSSA bacteremia in August 2024 on cefdinir 300 mg q.12 hours for chronic suppression through May 04, 2025 (followed by Dr. Viky Wagoner at [facility]) who presented to the emergency department via EMS from home for evaluation of hip pain after a fall. Not long prior to arrival she was using her walker to go to her bedroom but she lost her balance as she was trying to carry something in 1 hand and use her walker with the other. She fell down onto her left side and had immediate pain in her left hip and she was unable to get herself up. She denies syncope, near syncope, chest pain, pleuritic pain, shortness of breath, nausea, vomiting, and diarrhea. No recent cold or flu symptoms. In the ED: Blood pressure was a bit elevated on arrival in the remainder for vital signs were stable. Labs are significant for WBC count 12.1, hemoglobin 11.0, MCV 79.9, sodium 136, BUN 33, creatinine 1.03, glucose 117. Radiographs showed a left femoral neck fracture. She is being admitted in this setting for pain control and orthopedic consultation. Status post bipolar hemiarthroplasty left hip 02/14/2025. Continue PT OT. Mild leukocytosis noted. No signs of infection. Continue to monitor. Mild postop hyponatremia. Will continue to monitor. She will need placement. Care coordination on board and this was arranged for discharge. 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 On cefdinir 300 mg every 12 hours for chronic suppression through May 04, 2025. DVT prophylaxis on Lovenox Code status full code Time Spent with Patient Time attestation: Total time spent providing and/or coordinating discharge services: 35 minutes Exam Narrative: General: Nontoxic-appearing female supine in bed in no acute distress HEENT: PERRL, EOMI. Sclera anicteric. Tacky mucous membranes. Neck: Supple. Respiratory: Lungs are clear to auscultation bilaterally. Cardiovascular: Regular rate and rhythm with S1-S2. Gastrointestinal: Abdomen is soft, nontender, and nondistended with positive bowel sounds. Skin: Warm and dry. Extremities: No cyanosis, clubbing, or edema. Radial and pedal pulses intact. Musculoskeletal: Left lower extremity with dressing in place, No gross deformity noted. Neurological: Alert. Cranial nerves 2-12 are grossly intact. No gross focal deficits to casual conversation. Psychiatric: Pleasant and cooperative with normal mood and affect. Judgment and insight intact. DS: Data Data Completed and Pending Labs on day of discharge: Labs from last 24 hours 02/17/25 02/17/25 02/17/25 11:43 08:08 06:11 WBC 12.0 H RBC 3.67 L Hgb 8.9 L Hct 29.0 L MCV 79.0 L MCH 24.3 L MCHC 30.7 L RDW 16.3 H Plt Count 292 MPV 10.2 Immature Gran % (Auto) 0.4 Neut % (Auto) 54.2 Lymph % (Auto) 34.2 [place] % (Auto) 9.5 H Eos % (Auto) 1.3 Baso % (Auto) 0.4 Lymph # (Auto) 4.09 H [place] # (Auto) 1.1 H Eos # (Auto) 0.2 Baso # (Auto) 0.1 Abs Immat Gran (auto) 0.05 H Absolute Neuts (auto) 6.5 Absolute Nucleated RBC 0.000 Nucleated RBC % 0.0 Sodium 133 L Potassium 3.9 Chloride 102 Carbon Dioxide 25 Anion Gap 6 BUN 17 Creatinine 0.92 Estim Creat Clear Calc 60 Estimated GFR 60 Glucose 116 H POC Capillary Glucose 159 H 130 H Calcium 8.7 Magnesium 1.7 Total Bilirubin 1.0 AST 21 ALT 19 Alkaline Phosphatase 91 Total Protein 6.0 L Albumin 3.2 L 02/16/25 02/16/25 20:42 16:47 WBC RBC Hgb Hct MCV MCH MCHC RDW Plt Count MPV Immature Gran % (Auto) Neut % (Auto) Lymph % (Auto) [place] % (Auto) Eos % (Auto) Baso % (Auto) Lymph # (Auto) [place] # (Auto) Eos # (Auto) Baso # (Auto) Abs Immat Gran (auto) Absolute Neuts (auto) Absolute Nucleated RBC Nucleated RBC % Sodium Potassium Chloride Carbon Dioxide Anion Gap BUN Creatinine Estim Creat Clear Calc Estimated GFR Glucose POC Capillary Glucose 137 H 191 H Calcium Magnesium Total Bilirubin AST ALT Alkaline Phosphatase Total Protein Albumin Imaging Radiologist's impression: ITS Impressions Chest X-Ray 02/14/25 06:29 Impression: Clear lungs. Hip/Pelvis X-Ray 02/14/25 06:29 Impression: Acute subcapital fracture of the left femoral neck, as detailed above. Hip X-Ray 02/14/25 16:38 IMPRESSION: Expected postoperative appearance of a left-sided total hip arthroplasty, as detailed above. Discharge Plan Discharge Attending physician on discharge: Deandre Aldana Consulting providers: Riccardo Stark Discharging Clinician: Deandre Aldana Anticipated Discharge Date/Time: 02/17/25 12:46 Patient Disposition: [facility] Activity: as tolerated Diet: regular Discharge Instructions: Ortho instructions: Left Bipolar hemiarthroplasty 02/14/25. * D/C to SNF/rehab * Follow up and xray in 4-6 weeks in office. Please call [facility] (Dr. Riccardo Stark) at for appointment details. * Wound Care: Remove Provena dressing at 7 days post op. May discard entire dressing and box at that time. Drain canister as needed. Please call our office if there is any drainage. Remove steristrips at 14 days post op. May shower. No soaking. * PT: Weight bearing as tolerated with a walker * DVT prophylaxis: continue Lovenox for 30 days total * Pain medication: Oxycodone Patient Language: Liberian Follow-up/Referrals: Amanda Driscoll PA [Physician Cycling Instructor] - Aurelio Hercules MD [Primary Care Provider] - 1 Week Discharge Medications: New oxycodone-acetaminophen 5-325 mg tablet 1 - 2 tablet PO Q4-6H PRN (Reason: pain) Qty: 30 0RF polyethylene glycol 3350 [Miralax] 17 gram Powder In Packet 17 g PO QAM PRN (Reason: Constipation) Qty: 30 0RF sennosides-docusate sodium [Senokot-S] 8.6-50 mg Tablet 2 tab PO BID Qty: 30 0RF Continued metformin 500 mg tablet 500 mg PO BID cefdinir 300 mg capsule 300 mg PO Q12H aspirin [Adult Aspirin Regimen] 81 mg tablet,delayed release (DR/EC) 81 mg PO DAILY meclizine 25 mg tablet 25 mg PO TID PRN (Reason: dizziness) Qty: 60 1RF irbesartan 300 mg tablet 150 mg PO DAILY atorvastatin 80 mg tablet 80 mg PO HS escitalopram oxalate 20 mg tablet 20 mg PO DAILY Qty: 90 1RF Date of admission: 02/14/25 11:01 Primary Care Provider: Aurelio Hercules Admitting Provider: Tamy Rasheed Attending physician on admission: Tamy Rasheed Condition: Stable
[2025-02-17 14:00] VITALS: BP 92/59; PULSE 90; RESP 18; TEMP 36.8; O2SAT 97
[2025-02-17] MEDS: BISACODYL 10 MG SUPPOSITORY RECTAL (15:16)
--- NOTE | 2025-02-17 15:48 | PM.IMPN ---
Progress Note: A&P Assessment and Plan (1) Closed left hip fracture: Code(s): S72.002A - Fracture of unspecified part of neck of left femur, initial encounter for closed fracture Status: Acute (2) Chronic antibiotic suppression: Code(s): Z79.2 - termination clerk (current) use of antibiotics Status: Acute (3) Hypertension: Code(s): I10 - Essential (primary) hypertension Status: Acute (4) Chronic kidney disease, stage 3a: Code(s): N18.31 - Chronic kidney disease, stage 3a Status: Chronic (5) Type 2 diabetes mellitus: Code(s): E11.9 - Type 2 diabetes mellitus without complications Status: Acute Plan This is a very pleasant 74-year-old female with hypertension, hyperlipidemia, type 2 diabetes mellitus, gastroesophageal reflux disease, depression, spinal stenosis status post L2-L3 posterior spinal fusion done for cauda equina syndrome on 07/14/2024, epidural abscesses status post laminectomy at C3, C4, C6, T1, T3 with evacuation of epidural abscess and irrigation and debridement of lumbar spine incision and MSSA bacteremia in August 2024 on cefdinir 300 mg q.12 hours for chronic suppression through May 04, 2025 (followed by Dr. Viky Wagoner at [facility]) who presented to the emergency department via EMS from home for evaluation of hip pain after a fall. Not long prior to arrival she was using her walker to go to her bedroom but she lost her balance as she was trying to carry something in 1 hand and use her walker with the other. She fell down onto her left side and had immediate pain in her left hip and she was unable to get herself up. She denies syncope, near syncope, chest pain, pleuritic pain, shortness of breath, nausea, vomiting, and diarrhea. No recent cold or flu symptoms. In the ED: Blood pressure was a bit elevated on arrival in the remainder for vital signs were stable. Labs are significant for WBC count 12.1, hemoglobin 11.0, MCV 79.9, sodium 136, BUN 33, creatinine 1.03, glucose 117. Radiographs showed a left femoral neck fracture. She is being admitted in this setting for pain control and orthopedic consultation. Status post bipolar hemiarthroplasty left hip 02/14/2025. Continue PT OT. Mild leukocytosis noted. No signs of infection. Continue to monitor. Mild postop hyponatremia. Will continue to monitor. She will need placement. Care coordination on board Mild postoperative anemia continue to monitor Hypertension Hyperlipidemia Type 2 diabetes mellitus on SSI GERD Depression Spinal stenosis status post L2-L3 posterior spinal fusion done for cauda equina syndrome on 07/14/2024 Epidural abscesses status post laminectomy at C3-C4 C6-T1 T3 with evacuation of epidural abscess and irrigation and debridement of lumbar spine incision and MSSA bacteremia in August 2024. On cefdinir 300 mg every 12 hours for chronic suppression through May 04, 2025. DVT prophylaxis on Lovenox Code status full code Awaiting official confirmed bowel movement for discharge/transfer to rehabilitation center as requested by rehab facility. Subjective Date/time seen: 02/17/25 15:48 Interval history: no sob, chest pain, no abdominal pain nausea, vomiting. Review of Systems Review of Systems: All systems reviewed & are unremarkable except as noted in HPI and below Exam Narrative: General: Nontoxic-appearing female supine in bed in no acute distress HEENT: PERRL, EOMI. Sclera anicteric. Tacky mucous membranes. Neck: Supple. Respiratory: Lungs are clear to auscultation bilaterally. Cardiovascular: Regular rate and rhythm with S1-S2 Gastrointestinal: Abdomen is soft, nontender, and nondistended with positive bowel sounds Skin: Warm and dry Extremities: No cyanosis, clubbing, or edema. Radial and pedal pulses intact Musculoskeletal: Left lower extremity with dressing in place, No gross deformity noted Neurological: Alert. Cranial nerves 2-12 are grossly intact. No gross focal deficits to casual conversation Psychiatric: Pleasant and cooperative with normal mood and affect. Judgment and insight intact Objective Data Vital Signs Vital Signs: Vital Signs - 24 hr 02/16/25 20:00 02/16/25 22:00 02/17/25 05:51 Temperature 97.6 F 97.2 F L Pulse Rate 103 H 88 Respiratory Rate 18 18 Blood Pressure 151/78 H 141/71 H Pulse Oximetry 91 95 Oxygen Delivery Room Air 02/17/25 08:00 Temperature Pulse Rate Respiratory Rate Blood Pressure Pulse Oximetry 97 Oxygen Delivery Room Air Intake/Output Intake/Output: Intake & Output 02/14/25 02/15/25 02/16/25 02/17/25 23:59 23:59 23:59 23:59 Intake Total 345 196 5559 780 Output Total 1350 625 550 300 Balance -360 -305 2330 480 Meds/Results Medications: Active Medications Generic Name Dose Route Start Last Admin Trade Name Freq PRN Reason Stop Dose Admin Atorvastatin Calcium 80 mg 02/14/25 21:00 02/16/25 21:34 Atorvastatin 40 Mg Tablet PO 80 mg HS JODIE Administration Cefdinir 300 mg 02/14/25 21:00 02/17/25 08:31 Cefdinir 300 Mg Capsule PO 300 mg Q12H JODIE Administration Cyclobenzaprine HCl 10 mg 02/14/25 16:46 Cyclobenzaprine Hcl 10 Mg Tablet PO Q8H PRN Muscle Spasm Dextrose 12.5 gm 02/14/25 05:57 Dextrose 50% 25 Gm/50 Ml Syringe IV PUSH PRN PRN Hypoglycemia Protocol Enoxaparin Sodium 30 mg 02/14/25 21:00 02/17/25 08:35 Enoxaparin 30 Mg/0.3 Ml Syringe SUB-Q 30 mg Q12HR JODIE Administration Escitalopram Oxalate 20 mg 02/15/25 09:00 02/17/25 08:31 Escitalopram Oxalate 10 Mg Tablet PO 20 mg DAILY JODIE Administration Famotidine 20 mg 02/14/25 21:00 02/17/25 08:31 Famotidine 20 Mg Tablet PO 20 mg Q12HR JODIE Administration Glucagon 1 mg 02/14/25 05:57 Glucagon For Inj 1 Mg Vial IM PRN PRN Hypoglycemia Protocol Glucose 15 gm 02/14/25 05:57 Glucose Oral Gel 15 Gm Of Glucse In 37.5 Gm Tube PO PRN PRN Hypoglycemia Protocol Hydromorphone HCl 1 mg 02/14/25 16:46 Hydromorphone Hcl Inj (*Crx) 1 Mg/Ml Syr IV PUSH Q2H PRN Breakthrough Pain Rated 7-10 or NPO Hydromorphone HCl 0.5 mg 02/14/25 16:46 Hydromorphone Hcl Inj (*Crx) 1 Mg/Ml Syr IV PUSH Q2H PRN Breakthrough Pain Rated 4-6 or NPO Dextrose 1,000 mls @ 100 mls/hr 02/14/25 05:57 Dextrose 5% 1,000 Ml IVPB PRN PRN Hypoglycemia Protocol Ibuprofen 800 mg in 200 mls @ 400 mls/hr 02/14/25 16:46 Caldolor 800 Mg/200 Ml IVPB Q6H PRN Breakthrough Pain Rated 1-3 or NPO Insulin Aspart 3 - 6 units 02/14/25 08:00 02/17/25 12:54 Insulin Aspart (*Bkc) 100 Units/Ml SUB-Q Not Given TIDWM [facility] Protocol Insulin Aspart 1 - 3 units 02/14/25 21:00 02/16/25 21:34 Insulin Aspart (*Bkc) 100 Units/Ml SUB-Q Not Given HS [facility] Protocol Irbesartan 150 mg 02/15/25 09:00 02/17/25 08:31 Irbesartan 150 Mg Tablet PO 150 mg DAILY JODIE Administration Meclizine HCl 25 mg 02/14/25 16:46 Meclizine Hcl 25 Mg Tablet PO TID PRN dizziness Metformin HCl 500 mg 02/14/25 17:00 02/17/25 08:31 Metformin Hcl 500 Mg Tablet PO 500 mg BID [facility] Administration Morphine Sulfate 4 mg 02/14/25 05:00 02/14/25 07:57 Morphine Sulfate (*Crx) 4 Mg/Ml Inj IV PUSH 4 mg Q2H PRN Administration Pain Rated 7-10 Naloxone HCl 0.1 mg 02/14/25 16:46 Naloxone Hcl 0.4 Mg/Ml Vial IV PUSH Q2M PRN Opiate Reversal Ondansetron HCl 4 mg 02/14/25 05:00 Ondansetron Inj 4 Mg/2 Ml Vial IV PUSH Q4H PRN Nausea Ondansetron HCl 4 mg 02/14/25 16:46 Ondansetron Inj 4 Mg/2 Ml Vial IV PUSH Q4H PRN Nausea And Vomiting Oxycodone/Acetaminophen 1 tablet 02/14/25 16:46 Oxycodone/Acetaminophen (*Crx) 5-325 Mg Tablet PO Q4H PRN Pain Rated 4-6 Oxycodone/Acetaminophen 1 tab 02/14/25 16:46 02/16/25 05:47 Oxycodone/Acetaminophen (*Crx) 10-325 Mg Tablet PO 1 tab Q6H PRN Administration Pain Rated 7-10 Polyethylene Glycol 17 gm 02/15/25 09:00 02/17/25 08:35 Polyethylene Glycol 3350 17 Gm Powd.Pack PO Not Given QAM [facility] Senna/Docusate Sodium 2 tab 02/14/25 17:00 02/17/25 08:31 Senna/Docusate Sodium Tablet PO 2 tab BID JODIE Administration Tramadol HCl 50 mg 02/14/25 16:46 02/17/25 10:40 Tramadol Hcl (*Crx) 50 Mg Tablet PO 50 mg Q4H PRN Administration Pain Rated 1-3 Radiology Results: ITS Impressions Chest X-Ray 02/14/25 06:29 Impression: Clear lungs. Hip/Pelvis X-Ray 02/14/25 06:29 Impression: Acute subcapital fracture of the left femoral neck, as detailed above. Hip X-Ray 02/14/25 16:38 IMPRESSION: Expected postoperative appearance of a left-sided total hip arthroplasty, as detailed above. Labs Labs: Laboratory Results - last 24 hr 02/16/25 02/16/25 02/17/25 16:47 20:42 06:11 WBC 12.0 H RBC 3.67 L Hgb 8.9 L Hct 29.0 L MCV 79.0 L MCH 24.3 L MCHC 30.7 L RDW 16.3 H Plt Count 292 MPV 10.2 Immature Gran % (Auto) 0.4 Neut % (Auto) 54.2 Lymph % (Auto) 34.2 [place] % (Auto) 9.5 H Eos % (Auto) 1.3 Baso % (Auto) 0.4 Lymph # (Auto) 4.09 H [place] # (Auto) 1.1 H Eos # (Auto) 0.2 Baso # (Auto) 0.1 Abs Immat Gran (auto) 0.05 H Absolute Neuts (auto) 6.5 Absolute Nucleated RBC 0.000 Nucleated RBC % 0.0 Sodium 133 L Potassium 3.9 Chloride 102 Carbon Dioxide 25 Anion Gap 6 BUN 17 Creatinine 0.92 Estim Creat Clear Calc 60 Estimated GFR 60 Glucose 116 H POC Capillary Glucose 191 H 137 H Calcium 8.7 Magnesium 1.7 Total Bilirubin 1.0 AST 21 ALT 19 Alkaline Phosphatase 91 Total Protein 6.0 L Albumin 3.2 L 02/17/25 02/17/25 08:08 11:43 WBC RBC Hgb Hct MCV MCH MCHC RDW Plt Count MPV Immature Gran % (Auto) Neut % (Auto) Lymph % (Auto) [place] % (Auto) Eos % (Auto) Baso % (Auto) Lymph # (Auto) [place] # (Auto) Eos # (Auto) Baso # (Auto) Abs Immat Gran (auto) Absolute Neuts (auto) Absolute Nucleated RBC Nucleated RBC % Sodium Potassium Chloride Carbon Dioxide Anion Gap BUN Creatinine Estim Creat Clear Calc Estimated GFR Glucose POC Capillary Glucose 130 H 159 H Calcium Magnesium Total Bilirubin AST ALT Alkaline Phosphatase Total Protein Albumin
[2025-02-17 16:42] LABS: Glucose Point of Care 139 mg/dl (65-105)
[2025-02-17] MEDS: CYCLOBENZAPRINE HCL 10 MG TABLET PO (16:49)
[2025-02-17] MEDS: oxyCODONE/ACETAMINOPHEN (*CRX) 10-325 MG TABLET 1 TAB PO (16:49)
--- NOTE | 2025-02-17 18:02 | PC.NURSE ---
Pt had BM following suppository. administrative services coordinator and MD notified.
[2025-02-17 20:58] LABS: Glucose Point of Care 158 mg/dl (65-105)
[2025-02-17] MEDS: ATORVASTATIN 40 MG TABLET 80 MG PO (21:07)
[2025-02-17 21:27] VITALS: BP 118/56; PULSE 78; RESP 12; TEMP 36.3; O2SAT 93
[2025-02-18 06:00] VITALS: BP 114/49; PULSE 88; RESP 12; TEMP 36.2; O2SAT 96
[2025-02-18 07:45] LABS: Glucose Point of Care 134 mg/dl (65-105)
--- NOTE | 2025-02-18 09:45 | P.PNOP_ITS ---
Progress Note: A&P Assessment and Plan (1) Closed fracture of neck of left femur: Qualifiers: Encounter type: initial encounter Qualified Code(s): S72.002A - Fracture of unspecified part of neck of left femur, initial encounter for closed fracture Code(s): S72.002A - Fracture of unspecified part of neck of left femur, initial encounter for closed fracture Status: Acute Assessment and Plan: Postop day 4: Left Bipolar hemiarthroplasty. Patient tolerated procedure well. No complications. Pain manageable with pain medication. No numbness or tingling. Provena Dressing lost suction. Removed Provena and applied Aquacel dressing. New steristrips applied and cleaned with Betadine. Wound healing. There was some very superficial blistering at the the center of the incision. No open or draining area. She was waiting on having a BM for discharge. She has had a BM. We had a lengthy discussion regarding postoperative wound care, limitations, expectations, and exercises. Patient shows good understanding. She has had initial physical therapy and is tolerating it well. Okay for discharge from orthopedic stand point. Patient current plan is to discharge to [facility]. Ortho instructions: Left Bipolar hemiarthroplasty 02/14/25. * D/C to SNF/rehab * Follow up and xray in 4-6 weeks in office. Please call [facility] (Dr. Riccardo Stark) at for appointment details. * Wound Care: Remove Aquacel dressing at 7 days post op. Please call our office if there is any drainage. Remove steristrips at 14 days post op. May shower. No soaking. * PT: Weight bearing as tolerated with a walker * DVT prophylaxis: continue Lovenox for 30 days total * Pain medication: Oxycodone Subjective Subjective Date/Time Seen: 02/18/25 09:45 Interval history: Patient resting comfortably. No complaints. No pain at rest. No drainage from dressing. Dressing has lost suction. Will re-apply a new dressing. She has been up walking with therapy. Using a walker. Eager to rehab. No other complaints. She has had a BM. Review of Systems Review of Systems: All systems reviewed & are unremarkable except as noted in HPI and below Exam Narrative: 74 y/o Pleasant overweight 74 y/o female . A&O x3. No clinical deformity. Dressing lost suction. Removed Provena and applied Aquacel dressing. New steristrips applied and cleaned with Betadine. Wound healing. There was some very superficial blistering at the the center of the incision. No open or draining area. No erythema, ecchymosis, warmth. No rash or lesions. Mildly tender. Slight swelling. No calf or thigh pain to palpation. No distal edema. Light touch sensation intact. Dorsalis pedis pulse normal. Objective Data Vital Signs Vital Signs: Vital Signs - 24 hr 02/17/25 14:00 02/17/25 20:00 02/17/25 21:27 Temperature 98.3 F 97.4 F L Pulse Rate 90 78 Respiratory Rate 18 12 Blood Pressure 92/59 L 118/56 L Pulse Oximetry 97 93 Oxygen Delivery Room Air 02/18/25 06:00 Temperature 97.1 F L Pulse Rate 88 Respiratory Rate 12 Blood Pressure 114/49 L Pulse Oximetry 96 Oxygen Delivery Intake/Output Intake/Output: Intake & Output 02/15/25 02/16/25 02/17/25 02/18/25 23:59 23:59 23:59 23:59 Intake Total 320 2880 2520 437 Output Total 625 550 500 500 Balance -305 2330 2019 Meds/Results Medications: Active Medications Generic Name Dose Route Start Last Admin Trade Name Freq PRN Reason Stop Dose Admin Atorvastatin Calcium 80 mg 02/14/25 21:00 02/17/25 21:07 Atorvastatin 40 Mg Tablet PO 80 mg HS JODIE Administration Cefdinir 300 mg 02/14/25 21:00 02/17/25 21:07 Cefdinir 300 Mg Capsule PO 300 mg Q12H JODIE Administration Cyclobenzaprine HCl 10 mg 02/14/25 16:46 02/17/25 16:49 Cyclobenzaprine Hcl 10 Mg Tablet PO 10 mg Q8H PRN Administration Muscle Spasm Dextrose 12.5 gm 02/14/25 05:57 Dextrose 50% 25 Gm/50 Ml Syringe IV PUSH PRN PRN Hypoglycemia Protocol Enoxaparin Sodium 30 mg 02/14/25 21:00 02/17/25 21:07 Enoxaparin 30 Mg/0.3 Ml Syringe SUB-Q 30 mg Q12HR JODIE Administration Escitalopram Oxalate 20 mg 02/15/25 09:00 02/17/25 08:31 Escitalopram Oxalate 10 Mg Tablet PO 20 mg DAILY JODIE Administration Famotidine 20 mg 02/14/25 21:00 02/17/25 21:07 Famotidine 20 Mg Tablet PO 20 mg Q12HR JODIE Administration Glucagon 1 mg 02/14/25 05:57 Glucagon For Inj 1 Mg Vial IM PRN PRN Hypoglycemia Protocol Glucose 15 gm 02/14/25 05:57 Glucose Oral Gel 15 Gm Of Glucse In 37.5 Gm Tube PO PRN PRN Hypoglycemia Protocol Hydromorphone HCl 1 mg 02/14/25 16:46 Hydromorphone Hcl Inj (*Crx) 1 Mg/Ml Syr IV PUSH Q2H PRN Breakthrough Pain Rated 7-10 or NPO Hydromorphone HCl 0.5 mg 02/14/25 16:46 Hydromorphone Hcl Inj (*Crx) 1 Mg/Ml Syr IV PUSH Q2H PRN Breakthrough Pain Rated 4-6 or NPO Dextrose 1,000 mls @ 100 mls/hr 02/14/25 05:57 Dextrose 5% 1,000 Ml IVPB PRN PRN Hypoglycemia Protocol Ibuprofen 800 mg in 200 mls @ 400 mls/hr 02/14/25 16:46 Caldolor 800 Mg/200 Ml IVPB Q6H PRN Breakthrough Pain Rated 1-3 or NPO Insulin Aspart 3 - 6 units 02/14/25 08:00 02/18/25 08:11 Insulin Aspart (*Bkc) 100 Units/Ml SUB-Q Not Given TIDWM [facility] Protocol Insulin Aspart 1 - 3 units 02/14/25 21:00 02/17/25 21:08 Insulin Aspart (*Bkc) 100 Units/Ml SUB-Q Not Given HS [facility] Protocol Irbesartan 150 mg 02/15/25 09:00 02/17/25 08:31 Irbesartan 150 Mg Tablet PO 150 mg DAILY JODIE Administration Meclizine HCl 25 mg 02/14/25 16:46 Meclizine Hcl 25 Mg Tablet PO TID PRN dizziness Metformin HCl 500 mg 02/14/25 17:00 02/17/25 16:51 Metformin Hcl 500 Mg Tablet PO 500 mg BID JODIE Administration Morphine Sulfate 4 mg 02/14/25 05:00 02/14/25 07:57 Morphine Sulfate (*Crx) 4 Mg/Ml Inj IV PUSH 4 mg Q2H PRN Administration Pain Rated 7-10 Naloxone HCl 0.1 mg 02/14/25 16:46 Naloxone Hcl 0.4 Mg/Ml Vial IV PUSH Q2M PRN Opiate Reversal Ondansetron HCl 4 mg 02/14/25 05:00 Ondansetron Inj 4 Mg/2 Ml Vial IV PUSH Q4H PRN Nausea Ondansetron HCl 4 mg 02/14/25 16:46 Ondansetron Inj 4 Mg/2 Ml Vial IV PUSH Q4H PRN Nausea And Vomiting Oxycodone/Acetaminophen 1 tablet 02/14/25 16:46 Oxycodone/Acetaminophen (*Crx) 5-325 Mg Tablet PO Q4H PRN Pain Rated 4-6 Oxycodone/Acetaminophen 1 tab 02/14/25 16:46 02/17/25 16:49 Oxycodone/Acetaminophen (*Crx) 10-325 Mg Tablet PO 1 tab Q6H PRN Administration Pain Rated 7-10 Polyethylene Glycol 17 gm 02/15/25 09:00 02/17/25 08:35 Polyethylene Glycol 3350 17 Gm Powd.Pack PO Not Given QAM JODIE Senna/Docusate Sodium 2 tab 02/14/25 17:00 02/17/25 21:06 Senna/Docusate Sodium Tablet PO Not Given BID JODIE Tramadol HCl 50 mg 02/14/25 16:46 02/17/25 21:07 Tramadol Hcl (*Crx) 50 Mg Tablet PO 50 mg Q4H PRN Administration Pain Rated 1-3 Radiology Results: ITS Impressions Chest X-Ray 02/14/25 06:29 Impression: Clear lungs. Hip/Pelvis X-Ray 02/14/25 06:29 Impression: Acute subcapital fracture of the left femoral neck, as detailed above. Hip X-Ray 02/14/25 16:38 IMPRESSION: Expected postoperative appearance of a left-sided total hip arthroplasty, as detailed above. Labs Labs: Laboratory Results - last 24 hr 02/17/25 02/17/25 02/17/25 11:43 16:38 20:52 POC Capillary Glucose 159 H 139 H 158 H 02/18/25 07:36 POC Capillary Glucose 134 H
[2025-02-18] MEDS: FAMOTIDINE 20 MG TABLET PO (10:01)
[2025-02-18] MEDS: IRBESARTAN 150 MG TABLET PO (10:01)
[2025-02-18] MEDS: CEFDINIR 300 MG CAPSULE PO (10:01)
[2025-02-18] MEDS: metFORMIN HCL 500 MG TABLET PO (10:01)
[2025-02-18] MEDS: ESCITALOPRAM OXALATE 10 MG TABLET 20 MG PO (10:01)
[2025-02-18] MEDS: ENOXAPARIN 30 MG/0.3 ML SYRINGE SUB-Q (10:40)
[2025-02-18 11:14] LABS: Glucose Point of Care 159 mg/dl (65-105)
--- NOTE | 2025-02-18 13:06 | PM.DS ---
DS: Admitting Diagnosis Discharge Date 02/18/2025 Admitting Diagnosis hip fracture DS: Discharge Diagnosis Discharge Diagnosis (1) Closed left hip fracture: Code(s): S72.002A - Fracture of unspecified part of neck of left femur, initial encounter for closed fracture Status: Acute (2) Chronic antibiotic suppression: Code(s): Z79.2 - long term (current) use of antibiotics Status: Acute (3) Hypertension: Code(s): I10 - Essential (primary) hypertension Status: Acute (4) Chronic kidney disease, stage 3a: Code(s): N18.31 - Chronic kidney disease, stage 3a Status: Chronic (5) Type 2 diabetes mellitus: Code(s): E11.9 - Type 2 diabetes mellitus without complications Status: Acute DS: Summary Hospital Course Hospital Course: This is a very pleasant 74-year-old female with hypertension, hyperlipidemia, type 2 diabetes mellitus, gastroesophageal reflux disease, depression, spinal stenosis status post L2-L3 posterior spinal fusion done for cauda equina syndrome on 07/14/2024, epidural abscesses status post laminectomy at C3, C4, C6, T1, T3 with evacuation of epidural abscess and irrigation and debridement of lumbar spine incision and MSSA bacteremia in August 2024 on cefdinir 300 mg q.12 hours for chronic suppression through May 04, 2025 (followed by Dr. Viky Wagoner at [facility]) who presented to the emergency department via EMS from home for evaluation of hip pain after a fall. Not long prior to arrival she was using her walker to go to her bedroom but she lost her balance as she was trying to carry something in 1 hand and use her walker with the other. She fell down onto her left side and had immediate pain in her left hip and she was unable to get herself up. She denies syncope, near syncope, chest pain, pleuritic pain, shortness of breath, nausea, vomiting, and diarrhea. No recent cold or flu symptoms. In the ED: Blood pressure was a bit elevated on arrival in the remainder for vital signs were stable. Labs are significant for WBC count 12.1, hemoglobin 11.0, MCV 79.9, sodium 136, BUN 33, creatinine 1.03, glucose 117. Radiographs showed a left femoral neck fracture. She is being admitted in this setting for pain control and orthopedic consultation. Status post bipolar hemiarthroplasty left hip 02/14/2025. Continue PT OT. Mild leukocytosis noted. No signs of infection. Continue to monitor. Mild postop hyponatremia. Will continue to monitor. She will need placement. Care coordination on board Mild postoperative anemia continue to monitor Hypertension Hyperlipidemia Type 2 diabetes mellitus on SSI GERD Depression Spinal stenosis status post L2-L3 posterior spinal fusion done for cauda equina syndrome on 07/14/2024 Epidural abscesses status post laminectomy at C3-C4 C6-T1 T3 with evacuation of epidural abscess and irrigation and debridement of lumbar spine incision and MSSA bacteremia in August 2024. On cefdinir 300 mg every 12 hours for chronic suppression through May 04, 2025. DVT prophylaxis on Lovenox Code status full code Time Spent with Patient Time attestation: Total time spent providing and/or coordinating discharge services: Exam Narrative: General: Nontoxic-appearing female supine in bed in no acute distress HEENT: PERRL, EOMI. Sclera anicteric. Tacky mucous membranes. Neck: Supple. Respiratory: Lungs are clear to auscultation bilaterally. Cardiovascular: Regular rate and rhythm with S1-S2 Gastrointestinal: Abdomen is soft, nontender, and nondistended with positive bowel sounds Skin: Warm and dry Extremities: No cyanosis, clubbing, or edema. Radial and pedal pulses intact Musculoskeletal: Left lower extremity with dressing in place, No gross deformity noted Neurological: Alert. Cranial nerves 2-12 are grossly intact. No gross focal deficits to casual conversation Psychiatric: Pleasant and cooperative with normal mood and affect. Judgment and insight intact DS: Data Data Completed and Pending Labs on day of discharge: Labs from last 24 hours 02/18/25 02/18/25 02/17/25 11:11 07:36 20:52 POC Capillary Glucose 159 H 134 H 158 H 02/17/25 16:38 POC Capillary Glucose 139 H Imaging Radiologist's impression: ITS Impressions Chest X-Ray 02/14/25 06:29 Impression: Clear lungs. Hip/Pelvis X-Ray 02/14/25 06:29 Impression: Acute subcapital fracture of the left femoral neck, as detailed above. Hip X-Ray 02/14/25 16:38 IMPRESSION: Expected postoperative appearance of a left-sided total hip arthroplasty, as detailed above. Discharge Plan Discharge Attending physician on discharge: Deandre Aldana Consulting providers: Shepperson,Riccardo P. Discharging Clinician: Deandre Aldana Anticipated Discharge Date/Time: 02/18/25 13:08 Patient Disposition: [facility] Activity: as tolerated Diet: regular Discharge Instructions: Ortho instructions: Left Bipolar hemiarthroplasty 02/14/25. D/C to SNF/rehab Follow up and xray in 4-6 weeks in office. Please call [facility] (Dr. Riccardo Stark) at for appointment details. Wound Care: Remove Aquacel dressing at 7 days post op. Please call our office if there is any drainage. Remove steristrips at 14 days post op. May shower. No soaking. PT: Weight bearing as tolerated with a walker DVT prophylaxis: continue Lovenox for 30 days total Pain medication: Oxycodone Patient Language: Uzbek Follow-up/Referrals: Amanda Driscoll PA [Physician Check Pilot] - Aurelio Hercules MD [Primary Care Provider] - 1 Week Discharge Medications: New oxycodone-acetaminophen 5-325 mg tablet 1 - 2 tablet PO Q4-6H PRN (Reason: pain) Qty: 30 0RF polyethylene glycol 3350 [Miralax] 17 gram Powder In Packet 17 g PO QAM PRN (Reason: Constipation) Qty: 30 0RF sennosides-docusate sodium [Senokot-S] 8.6-50 mg Tablet 2 tab PO BID Qty: 30 0RF Continued metformin 500 mg tablet 500 mg PO BID cefdinir 300 mg capsule 300 mg PO Q12H aspirin [Adult Aspirin Regimen] 81 mg tablet,delayed release (DR/EC) 81 mg PO DAILY meclizine 25 mg tablet 25 mg PO TID PRN (Reason: dizziness) Qty: 60 1RF irbesartan 300 mg tablet 150 mg PO DAILY atorvastatin 80 mg tablet 80 mg PO HS escitalopram oxalate 20 mg tablet 20 mg PO DAILY Qty: 90 1RF Date of admission: 02/14/25 11:01 Primary Care Provider: Aurelio Hercules Admitting Provider: Tamy Rasheed Attending physician on admission: Tamy Rasheed Condition: Stable
== END 2025-02-18 14:30 | DRG 522 ==
LOC: ANHED 05:08 → ANH3MEDSUR 06:58
PROVIDERS: Orthopaedic Surgery; Physician Assistant; Physician Assistant Surgical; Admitting Provider Internal Medicine; Emergency Provider Emergency Medicine; PCP Family Medicine; Visit Provider Internal Medicine
PROC: 0SRS01A Replacement of Left Hip Joint, Femoral Surface with Metal Synthetic Substitute, Uncemented, Open Approach (ICD-10-PCS; CPT 27125; principal; 2025-02-14 13:30)
DX: S72.012A Unspecified intracapsular fracture of left femur, initial encounter for closed fracture (principal); E87.1 Hypo-osmolality and hyponatremia; W01.0XXA Fall on same level from slipping, tripping and stumbling without subsequent striking against object, initial encounter; D64.89 Other specified anemias; I12.9 Hypertensive chronic kidney disease with stage 1 through stage 4 chronic kidney disease, or unspecified chronic kidney disease; E11.22 Type 2 diabetes mellitus with diabetic chronic kidney disease; N18.31 Chronic kidney disease, stage 3a; G47.33 Obstructive sleep apnea (adult) (pediatric); G25.81 Restless legs syndrome; M15.9 Polyosteoarthritis, unspecified; M47.816 Spondylosis without myelopathy or radiculopathy, lumbar region; E78.00 Pure hypercholesterolemia, unspecified; K21.9 Gastro-esophageal reflux disease without esophagitis; E66.9 Obesity, unspecified; F32.A Depression, unspecified; Z96.653 Presence of artificial knee joint, bilateral; Z90.49 Acquired absence of other specified parts of digestive tract; Z98.1 Arthrodesis status; Z87.891 Personal history of nicotine dependence
CPT/HCPCS: 36415; 71045; 73502; 80048; 80053; 81001; 82948; 83036; 83735; 85025; 85610; 85730; 86850; 86900; 86901; 87086; 93005; 96361; 96374; 96375; 96376; 97110; 97161; 97165; 97530; 97535; 99285; A9270; C1713; C1776; G0378; J0171; J0690; J1171; J1650; J1815; J1885; J2270; J2371; J2405; J2704; J2795; J3010; J7030; J7120

== ENCOUNTER 2025-05-13 10:21 | Outpatient (CLI) | payer MEDICARE, BC, SELFPAY ==
--- NOTE | ~2025-05-13 | XR_ITS ---
AP view of the pelvis and AP and lateral views of the left hip Clinical history: Arthroplasty Findings: No acute fracture or dislocation is seen. 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 Right hip joint intact. Soft tissues are unremarkable. Impression: No acute abnormality. 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 Reviewed, dictated and finalized at location . Impression: No acute abnormality. 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
--- OUTSIDE RECORDS SUMMARY | 2025-05-13 11:34 | XMS_ITS | Referral Summary ---
Author Organization [facility] [address] Address [address] [place] [address] Care Team Providers Care Home Administrator Name Role Phone Aurelio Hercules MD Primary Care Provider [phone] Edis Jeffrey MD Unavailable [phone] Miscellaneous, Not In File Unavailable Unava ilable [...] 11/04/2024 Assessment & Plan (11/04/2024 12:25 PM DEFENSE ATTORNEY): RD following. Has been losing weight overtime w/ medical issues/hospitalization. Weight prior to hospitalization/surgery 270, now 228.6. Continue to monitor. Anxiety 10/03/2024 Assessment & Plan (10/10/2024 1:24 PM DEFENSE ATTORNEY): Increased with pain 10/09. Did not utilized Hydroxyzine. Have reminded. Feels more controlled today & denies need for adjustment. Will utilize hydroxyzine if needed in future. Assessment & Plan (10/07/2024 12:36 PM DEFENSE ATTORNEY): Remains tearful. Not requiring PRN Atrax. Continue Lexapro. Assessment & Plan (10/03/2024 5:35 PM DEFENSE ATTORNEY): Started on Lexapro 10/02. Continues ot have anixety. Start Hydroxyzine PRN o=for anixety. Monitor. Depression 10/02/2024 Assessment & Plan (11/06/2024 6:03 PM DEFENSE ATTORNEY): This is subacute and improved. She is no longer tearful and her affect seems to be more cheerful and forward looking. We will continue escitalopram 30 mg daily. Assessment & Plan (11/01/2024 1:59 PM DEFENSE ATTORNEY): Her affect is flat and she is weepy. She agrees to increase her escitalopram from 20 to 30 mg daily. The scripting is entered as an order Assessment & Plan (10/17/2024 11:15 AM DEFENSE ATTORNEY): Continue Lexapro 20mg. She continues to be very tearful. Have educated will take 2-4 weeks for max benefits of medication. When asked why she is crying she states, I do not know, and laughs. Assessment & Plan (10/15/2024 7:17 PM DEFENSE ATTORNEY): Recently started on Lexapro 10mg. Will increase to 20mg. Monitor. Assessment & Plan (10/02/2024 5:49 PM DEFENSE ATTORNEY): She is a bit tearful and depressed [...] 09/20/2024 Assessment & Plan (11/15/2024 3:45 PM DEFENSE ATTORNEY): IV abx completed 11/02, transitioned to PO abx for suppression. Will need fu with ID/NSY before dc abx. Assessment & Plan (10/28/2024 1:32 PM DEFENSE ATTORNEY): IV abx to be complete 11/02 & [...] placement. Assessment & Plan (10/15/2024 7:16 PM DEFENSE ATTORNEY): Continue IV abx, labs as ordered. Will fu with SS on status of appts. Pain controlled. PT/OT. Assessment & Plan (10/10/2024 1:24 PM DEFENSE ATTORNEY): Patient is suppose to call NSY to [...] Monitor. Assessment & Plan (10/07/2024 12:32 PM DEFENSE ATTORNEY): IV abx 11/02 with weekly labs & FU with ID outpt, Dr. Gibbons. Will have SS make appt. Pain controlled. Dtr did ask for Gabapentin to be dc as causes her to be loopy. Assessment & Plan (10/03/2024 5:34 PM DEFENSE ATTORNEY): Continue IV abx until 11/02 followed by PO. FU ID. Weekly labs. Oxy, Claude, Tyl for pain. Lovenox for DVT prop. Assessment & Plan (10/02/2024 5:49 PM DEFENSE ATTORNEY): This is subacute and currently stable. Follow [...] 09/20/2024 Assessment & Plan (10/15/2024 7:13 PM DEFENSE ATTORNEY): H&H stable. Monitor. Assessment & Plan (10/02/2024 5:47 PM DEFENSE ATTORNEY): Continue ferrous sulfate as scripted Status post lumbar spine edwina bertha for decompression of spinal cord 09/20/2024 Assessment & Plan (11/04/2024 12:21 PM DEFENSE ATTORNEY): Pain controlled with oxycodone before tx & PRN, Robaxin & Tyl PRN. She has NSY appt 12/04. Has completed IV abx, currently on PO. Assessment & Plan (10/22/2024 12:48 PM DEFENSE ATTORNEY): Pain is controlled. Continues on abx as prescribed. Will transition to PO abx 11/02. ID/NSY fu pending - SS has been working on. Has only been taking oxy during day. Have adjusted to QID to be given at 0600, 1200, 1800, 2200. PRN Tyl & muscle relaxers in place also. Assessment & Plan (10/17/2024 11:14 AM DEFENSE ATTORNEY): NSY fu scheduled per SS - unsure of appt. ID appt still pending. She does have PO abx orders to start after IV abx. Continue rosenda oxy a4h, she is refusing if not needed. PRN Tyl in place as well as rosenda & PRN muscle relaxers. Assessment & Plan (10/07/2024 12:34 PM DEFENSE ATTORNEY): Needs surgical fu with Dr. Jeffrey & orders for staple removal. Concerns for drainage to incision over weekend. Assessed & approxiated, dry. Monitor. Bacteremia 09/19/2024 Adhesive capsulitis of shoulder 06/27/2024 Slow transit constipation 06/26/2024 Assessment & Plan (11/04/2024 12:23 PM DEFENSE ATTORNEY): Constipation resolved with large dose of Miralax. Now has diarrhea but reports improved today. Will restart Miralax BID + Senna BID. Could benefit possibly from Linzess. Monitor closely to prevent constipation reoccurring. Assessment & Plan (11/01/2024 1:58 PM DEFENSE ATTORNEY): She is upset she has not had [...] bowel. Assessment & Plan (10/28/2024 1:31 PM DEFENSE ATTORNEY): BM stable. Continue current regimen. Assessment & Plan (10/22/2024 12:45 PM DEFENSE ATTORNEY): Patient continues to report constipation. Currently taking Miralax daily, Senna- P 2 tab qd. Will increase Senna-P to 2 tabs BID. Monitor. Assessment & Plan (10/15/2024 7:21 PM DEFENSE ATTORNEY): Continue Senna-P, add miralax daily. PRN MOM [...] 06/23/2024 Assessment & Plan (11/06/2024 6:02 PM DEFENSE ATTORNEY): This is currently stable. We will continue to monitor serial vital signs. We will continue scripted losartan. Assessment & Plan (11/01/2024 2:00 PM DEFENSE ATTORNEY): This is currently stable. Please continue scripted losartan Assessment & Plan (10/02/2024 5:45 PM DEFENSE ATTORNEY): This is chronic and currently stable. Monitor vital signs for trending. Continue losartan 25 mg daily Assessment & Plan (06/27/2024 8:40 AM CDT): Doing well off ARB so will hold at discharge HLD (hyperlipidemia) 06/23/2024 Assessment & Plan (10/02/2024 5:46 PM DEFENSE ATTORNEY): This is chronic and stable. Please continue atorvastatin 80 mg daily Assessment & Plan (06/25/2024 9:29 AM CDT): - continue home statin T2DM (type 2 diabetes mellitus) 06/23/2024 Assessment & Plan (11/15/2024 3:44 PM DEFENSE ATTORNEY): A1c 7.6. Will dc insulin, restart Metformin 500mg BID & fu with PCP outpt for management. Assessment & Plan (11/06/2024 6:03 PM DEFENSE ATTORNEY): We will continue insulin glargine and insulin lispro. We will continue aspirin 81 mg daily and atorvastatin 80 mg daily. Assessment & Plan (10/10/2024 1:19 PM DEFENSE ATTORNEY): BS stable, 150-180 Assessment & Plan (10/07/2024 12:37 PM DEFENSE ATTORNEY): A1c 7.6. Currently taking Lispro 3u TIDAC, Lantus 10u. No requiring SSI. Will dc. Assessment & Plan (10/02/2024 5:46 PM DEFENSE ATTORNEY): This is chronic and stable. Please continue insulin glargine and insulin lispro as scripted Assessment & Plan (06/27/2024 8:41 AM CDT): - home regimen: metformin 1g BID; SSI inpt Palpitations 06/08/2011 Resolved Problems Problem Noted Date Diagnosed Date Resolved Date Acute headache 10/03/2024 10/07/2024 Assessment & Plan (10/03/2024 5:33 PM DEFENSE ATTORNEY): Monitor. Stoney CELION is what she uses at home. Utiilize and montior. Hypomagnesemia 09/21/2024 10/07/2024 Hypophosphatemia 09/21/2024 10/07/2024 Complicated UTI (urinary tract infection) 09/20/2024 10/03/2024 Acute renal failure (ARF) 09/17/2024 Assessment & Plan (10/02/2024 5:46 PM DEFENSE ATTORNEY): Follow up lab ordered Radiculopathy 07/12/2024 10/03/2024 [...] drink = 0.6 oz pur e alcohol) [facility] Utilities Answer Date Recorded In the past 12 months has [employer], gas, oil, or water [employer] threatened to shut off services in your [...] week 09/20/2024 How often do you attend [facility] or shinto services? 1 to 4 times per year 09/20/2024 Do you belong to any clubs o r organizations such as gnosticist groups, unions, fraternal or athletic groups, or [...] any time in the past 12 m onths, were you homeless or living in a penitentiary (including now)? No 09/20/2024 Personal Safety Answer Date Recorded Have you ever been in or are you currently in a harmful physical or emotional relationship or is someone making you feel afraid or unsafe? Denies 09/20/2024 Comments No Sex and Gender Information Value Date Recorded Sex Assigned at Not on file Legal Sex Female 3:52 AM DEFENSE ATTORNEY Gender Identity Not on file Sexual Orientation Not on file Last Filed Vital Signs Vital Sign Reading Time Taken Comments Blood Pressure 136/71 11/14/2024 6:09 PM DEFENSE ATTORNEY Pulse 88 11/14/2024 6:09 PM DEFENSE ATTORNEY Temperature 36.4 C (97.5 F) 10/02/2024 5:54 PM DEFENSE ATTORNEY Respiratory Rate 18 10/02/2024 9:50 AM DEFENSE ATTORNEY Oxygen Saturation 95% 10/02/2024 9:50 AM DEFENSE ATTORNEY Inhaled Oxygen Concentration - - Weight 116 kg (255 lb 11.7 oz) 09/20/2024 5:17 P M CDT Height 170.2 cm (5' 7) 09/20/2024 8:15 AM CDT Body Mass Index 40.05 09/20/2024 8:15 AM CDT Plan of Treatment Not on file Medical Devices Implanted Type Area Permaculture Designer Device Identifier Shelf Expiration Date Model / Serial / Lot Depuy Synthes Spine Substitute Bone Graft Fibergraft Gps Medium Putty 6cc [id number] - [id number] Implanted:Qty: 1 on 07/14/2024 by Edis Jeffrey MD at [facility] N/A: Back Depuy Synthes Spine [id number] / / Depuy Synthes Spine Expedium 6.5mm 50mm Polyaxial Spine Screw Bone Titanium 5.5mm Kyler [id number] - [id number] Implanted:Qty: 4 on 07/14/2024 by Edis Jeffrey MD at [facility] N/A: Back Depuy Synthes Spine [id number] / / Depuy Synthes Spine Expedium 1 Inner Monoaxial Spine Screw Set Titanium [id number] - [id number] Implanted:Qty: 4 on 07/14/2024 by Edis Jeffrey MD at [facility] N/A: Back Depuy Synthes Spine [id number] / / Depuy Synthes Spine Expedium 5.5mm 40mm Line Prebent Kyler Spinal Titanium Nonsterile [id number] - [id number] Implanted:Qty: 2 on 07/14/2024 by Edis Jeffrey MD at [facility] N/A: Back Depuy Synthes Spine [id number] / / Procedures Procedure Name Priority Date/Time Associated Diagnosis Comments EGFR Routine 11/04/2024 6:26 AM DEFENSE ATTORNEY HEMOGLOBIN A1C Add-On 09/17/2024 8:17 AM CDT from Last 3 Months or Most Recently Relevant to Health Maintenance Results * eGFR (11/04/2024 6:26 AM DEFENSE ATTORNEY) eGFR >90 >=60 mL/min/1. 73 m2 [facility] [...] Current interpretive data was last reviewed 2021. [facility], [address] [place] [address]., [address] Blood 11/04/2024 6:26 AM DEFENSE ATTORNEY 11/04/2024 9:54 AM DEFENSE ATTORNEY us Jeannine Rivera NP LAB BLOOD ORDERABLES Final Result [facility] [address] Department [place] [address] * (ABNORMAL) Hemoglobin A1c (09/17/2024 8:17 AM CDT) Hgb A1C 7.6(H) 4.0 - 5.6 % Comment:Testing performed by : [facility], [address] [place] [address]., [address] Estimated Average Glucose 171 mg/dL WELILNGTON MEDRANO Comment: The ADA recommends reporting an estimated Average Glucose (eAG) with all Hemoglobin A1c results using the equation derived from a study of 507 normal and diabetic adults. Minority populations were underrepresented and children were not included. (Diabetes Care 31:6310-8618, 2008). The eAG is not equivalent to a fasting glucose. Testing performed by: [facility], [address] [place] [address]., [address] Blood 09/17/2024 8:17 AM CDT 09/17/2024 8:39 AM CDT us Meghan Syed DO LAB BLOOD ORDERABLES Elsy rodríguez Result [facility] [address] [facility] Department [place] [address] from Last 3 Months or Most Recently Relevant to Health Maintenance Insurance MEDICARE [facility] Address: [address] [address] MEDICARE [facility] MEDICARE [facility] Advance Directives For more information, please contact: [phone] * Full Code (Latest Code Status on [...] 9:09 PM 07/14/2024 11:48 AM Care Teams Home Administrator Relationship Specialty Start Date End Date Aurelio Hercules MD [address] [place] [address] PCP - General 01/16/14 [place] [address] [place] [address] Consulting Physician Orthopedic Surgery 09/24/24 Miscellaneous, Not In File 09/30/24
--- OUTSIDE RECORDS SUMMARY | 2025-05-13 11:34 | XMS_ITS | Continuity of Care Document ---
Author Organization [facility] Address [address] [place] [address] Phone Care Team Providers Care Learning And Development Assistant Name Role Phone Raisa Marc Unavailable Unavailable Procedures Procedure Date Eye Exam & Treatment Refraction Eye Exam & Treatment Eye Exam & Treatment Advance Directives Directive Yes / No Effective Date File Name No Information Encounters Encounter Description Practice Location Reason(s) For Visit Diagnoses Date Provider Providers Copied on Encounter [facility], [address] [place] [address] [address], [place], [place], [id number], tel:[phone] [facility] No Information 1-201 0 Tari Hernandez [address], [place], [place], [facility], [place]. tel:[phone] [facility], [address] [place] [address] [address], [place], [place], [id number], [place] tel:[phone] [facility] No Information 1200 9 Tari Hernandez [address], [place], [place], [facility], [place]. tel:[phone] [facility], [address] [place] [address] [address], [place], [place], [id number], tel:[phone] [facility] No Information Leroy-1 3-200 8 Tari Hernandez [address], [place], [address], [place]. tel:[phone] Family History Family Member Type Diagnosis Age At Onset No Information Payers Payer name Insurance type Covered alliance party ID Authoreduin baptiste(s) [place] BL [id number] Social History Type Description Quantity Date Captured [...]
--- OUTSIDE RECORDS SUMMARY | 2025-05-13 11:34 | XMS_ITS | Data Portability ---
Author Organization [facility], Main Office Address [address] [place] [address] Care Team Providers Care Flight Operations Dispatch Clerk Name Role Phone FRANCISCA COMER Primary Care Provider FRANCISCA COMER Referring Provider Assessment No assessment [...] more view No observ ation record ed. [id number] Not Available 01/25/2023 12:46:48 01/16/20 23 01/13/2023 MRI, wrist , w/o contr ast No observ ation record ed. [id number] [facility] [address], [place], [address], 01/25/2023 12:46:48 Result Notes None recorded. Problems Name Problem SNOMED Code Status Onset Date Resolution Date Notes Provider Name and Address Organization Details Recorded Time Disorder of shoulder 128228683 Active Not Available [facility] 12:45:18 Radiothera py follow-up 345996310 Active Not Available [facility] 12:45:18 Shoulder joint pain 652754777 Active Not Available [facility] 12:45:18 Closed fracture of metatarsal bone 97919399 Active Not Available [facility] 3 12:45:18 Adhesive capsulitis of shoulder 565905440 Active Not Available [facility] 3 12:45:18 Disorder of rotator cuff 031975276 Active Not Available [facility] 3 12:45:18 Fracture of lower leg 123839181 Active Not Available [facility] 3 12:45:18 Disorder of bursa of shoulder region 29142959 Active Not Available [facility] 3 12:45:18 Pain of right wrist 4060249203908 00 Active 2022 Tatyana espinal, [facility] [employer] [facility] 3 16:01:27 Osteonecro sis of lunate 955594204 Active 2022 Tatyana espinal, [employer] [facility] [employer] [facility] 3 16:01:38 Problem Notes None recorded. Procedures Surgical History Date Name Laterality Status Provider Name and Address Organization Details Recorded Time Carpal tunnel completed Not Available [facility] 01/25/2023 12:44:47 microlaryngoscopy completed Not Available [facility] 01/25/2023 12:44:47 Knee Replacement completed Not Available [facility] 01/25/2023 12:44:47 Imaging Results None recorded. Procedure Notes None recorded. Medical Equipment None [...] Updated DateTime 01/03/2023 41.8 kg/m2 172.72 cm 380414.9 g Not Available [facility] 01/25/2023 12:44:54 Date Recorded Body mass index (BMI) Body height Body weight Provider Name and Address Organization Details Last Updated DateTime 01/24/2023 41.1 kg/m2 172.72 cm 426467.94 g Not Available [facility] 01/25/2023 12:44:54 Date Recorded Body height Body mass index (BMI) Body weight Provider Name and Address Organization Details Last Updated DateTime 03/01/2023 172.72 cm 41.1 kg/m2 888098.94 g Tatyana Hughes [facility] 03/01/2023 16:01:02 Date Recorded Body height Body mass index (BMI) Body weight Provider Name and Address Organization Details Last Updated DateTime 03/29/2023 172.72 cm 41.1 kg/m2 166445.94 g YESSICA Mims [facility] 03/29/2023 15:57:23 Social History Question Answer Notes LastModified by Organizat ion Details LastModified Time Tobacco Smoking Status Former Smoker Not Available [facility] 01/25/2023 12:44:41 When Did You Quit Smoking? 16+yearssinc elastcigaret te [id number] Information not available 01/25/2023 What Was The Date Of Your Most Recent Tobacco Screening? 01/24/2023 [id number] Information not available 01/25/2023 Sex: Unknown Functional Status Question Answer Note LastModified by Organizat ion Details LastModified Time What is your level of alcohol consumption? Occasional [id number] 26 Information not available 01/25/2023 Mental Status None recorded. Family History Relationship Description Onset Age of this Age Resolved Age Notes LastModified by Organization Details LastModified Time Mother Family history of malignant neoplasm [id number] Not available 01/25/2023 12:44:48 Mother Hypertensive disorder [id number] Not available 01/25/2023 12:44:48 Medical History Condition Response DIABETES, TYPE Y ARTHRITIS Y USE OF NSAIDS Y HYPERTENSION Y Gynecological HistoryNo gynecological history recorded. Obstetrics History GPAL:G 0 P 0 0 0 0 Past Encounters Encounter ID Performer Location Encounter Start Date Encounter Closed Date Diagnosis/Indication Diagnosis SNOMED-CT Code Diagnosis ICD10 Code Diagnosis Note [id number] Damon Melo MD [facility] [place] [address] [place] [address] 01/03/2023 00:00:00 01/03/2023 12:24:59 [id number] Damon Melo MD [facility] [place] [address] [place] [address] 01/24/2023 00:00:00 01/24/2023 12:12:33 [id number] Damon Melo MD [facility] [place] [address] [place] [address] 03/01/2023 15:57:25 03/01/2023 16:21:57 Pain of right wrist 1091025660 36423 M25.531 Osteonecro sis of lunate 606938160 M87.039 remove sutures today. Gave her a well fitted right wrist brace. She can take the brace off to shower and to do gentle range of motion. I will see her back in a month for follow-up an AP lateral x-rays out of the brace of her right wrist [id number] Damon Melo MD [facility] [place] [address] [place] [address] 03/29/2023 15:54:29 03/29/2023 16:58:57 Pain of right wrist 7251825469 51059 M25.531 Osteonecro sis of lunate 089658721 M87.039 patient is x-rayed today looks quite [...] Recorded Advance Directives Directive None Recorded Payers Insurance Date Sequence Insurance Name Policy Number Policy Lozano Covered Member ID Lozano Member ID Guarantor Name 01/16/2024 [employer] - [employer] ASSIGNED (MEDICARE DME REGION B) Arabella J Nereida [id number] Arabella Padron 09/27/2023 1 [place] Arabella Padron [id number] Arabella Padron 09/27/2023 2 [place] [id number] Arabella Padron [id number] Arabella Padron Notes Date Note Type Note Provider Name and Address Organization Details Recorded Time 03/01/2023 text/html 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
--- OUTSIDE RECORDS SUMMARY | 2025-05-13 11:34 | XMS_ITS | Clinical Summary ---
Author Organization [facility] [id number] Address [address] [place] [address] Care Team Providers Care Public Finance Specialist Name Role Phone Aurelio Hercules MD Primary Care Provider [phone] Edis Jeffrey MD Unavailable [phone] Miscellaneous, Not In File Unavailable Unava ilable [...] 11/04/2024 Assessment & Plan (11/04/2024 12:25 PM GLAZIER ARTIST): RD following. Has been losing weight overtime w/ medical issues/hospitalization. Weight prior to hospitalization/surgery 270, now 228.6. Continue to monitor. Anxiety 10/03/2024 Assessment & Plan (10/10/2024 1:24 PM GLAZIER ARTIST): Increased with pain 10/09. Did not utilized Hydroxyzine. Have reminded. Feels more controlled today & denies need for adjustment. Will utilize hydroxyzine if needed in future. Assessment & Plan (10/07/2024 12:36 PM GLAZIER ARTIST): Remains tearful. Not requiring PRN Atrax. Continue Lexapro. Assessment & Plan (10/03/2024 5:35 PM GLAZIER ARTIST): Started on Lexapro 10/02. Continues ot have anixety. Start Hydroxyzine PRN o=for anixety. Monitor. Depression 10/02/2024 Assessment & Plan (11/06/2024 6:03 PM GLAZIER ARTIST): This is subacute and improved. She is no longer tearful and her affect seems to be more cheerful and forward looking. We will continue escitalopram 30 mg daily. Assessment & Plan (11/01/2024 1:59 PM GLAZIER ARTIST): Her affect is flat and she is weepy. She agrees to increase her escitalopram from 20 to 30 mg daily. The scripting is entered as an order Assessment & Plan (10/17/2024 11:15 AM GLAZIER ARTIST): Continue Lexapro 20mg. She continues to be very tearful. Have educated will take 2-4 weeks for max benefits of medication. When asked why she is crying she states, I do not know, and laughs. Assessment & Plan (10/15/2024 7:17 PM GLAZIER ARTIST): Recently started on Lexapro 10mg. Will increase to 20mg. Monitor. Assessment & Plan (10/02/2024 5:49 PM GLAZIER ARTIST): She is a bit tearful and depressed [...] 09/20/2024 Assessment & Plan (11/15/2024 3:45 PM GLAZIER ARTIST): IV abx completed 11/02, transitioned to PO abx for suppression. Will need fu with ID/NSY before dc abx. Assessment & Plan (10/28/2024 1:32 PM GLAZIER ARTIST): IV abx to be complete 11/02 & [...] placement. Assessment & Plan (10/15/2024 7:16 PM GLAZIER ARTIST): Continue IV abx, labs as ordered. Will fu with SS on status of appts. Pain controlled. PT/OT. Assessment & Plan (10/10/2024 1:24 PM GLAZIER ARTIST): Patient is suppose to call NSY to [...] Monitor. Assessment & Plan (10/07/2024 12:32 PM GLAZIER ARTIST): IV abx 11/02 with weekly labs & FU with ID outpt, Dr. Gibbons. Will have SS make appt. Pain controlled. Dtr did ask for Gabapentin to be dc as causes her to be loopy. Assessment & Plan (10/03/2024 5:34 PM GLAZIER ARTIST): Continue IV abx until 11/02 followed by PO. FU ID. Weekly labs. Oxy, Claude, Tyl for pain. Lovenox for DVT prop. Assessment & Plan (10/02/2024 5:49 PM GLAZIER ARTIST): This is subacute and currently stable. Follow [...] 09/20/2024 Assessment & Plan (10/15/2024 7:13 PM GLAZIER ARTIST): H&H stable. Monitor. 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 She has NSY appt 12/04. Has completed IV abx, currently on PO. Assessment & Plan (10/22/2024 12:48 PM GLAZIER ARTIST): Pain is controlled. Continues on abx as prescribed. Will transition to PO abx 11/02. ID/NSY fu pending - SS has been working on. Has only been taking oxy during day. Have adjusted to QID to be given at 0600, 1200, 1800, 2200. PRN Tyl & muscle relaxers in place also. Assessment & Plan (10/17/2024 11:14 AM GLAZIER ARTIST): NSY fu scheduled per SS - unsure of appt. ID appt still pending. She does have PO abx orders to start after IV abx. Continue rosenda oxy a4h, she is refusing if not needed. PRN Tyl in place as well as rosenda & PRN muscle relaxers. Assessment & Plan (10/07/2024 12:34 PM GLAZIER ARTIST): Needs surgical fu with Dr. Jeffrey & orders for staple removal. Concerns for drainage to incision over weekend. Assessed & approxiated, dry. Monitor. Bacteremia 09/19/2024 Adhesive capsulitis of shoulder 06/27/2024 Slow transit constipation 06/26/2024 Assessment & Plan (11/04/2024 12:23 PM GLAZIER ARTIST): Constipation resolved with large dose of Miralax. Now has diarrhea but reports improved today. Will restart Miralax BID + Senna BID. Could benefit possibly from Linzess. Monitor closely to prevent constipation reoccurring. Assessment & Plan (11/01/2024 1:58 PM GLAZIER ARTIST): She is upset she has not had [...] bowel. Assessment & Plan (10/28/2024 1:31 PM GLAZIER ARTIST): BM stable. Continue current regimen. Assessment & Plan (10/22/2024 12:45 PM GLAZIER ARTIST): Patient continues to report constipation. Currently taking Miralax daily, Senna- P 2 tab qd. Will increase Senna-P to 2 tabs BID. Monitor. Assessment & Plan (10/15/2024 7:21 PM GLAZIER ARTIST): Continue Senna-P, add miralax daily. PRN MOM [...] 06/23/2024 Assessment & Plan (11/06/2024 6:02 PM GLAZIER ARTIST): This is currently stable. We will continue to monitor serial vital signs. We will continue scripted losartan. Assessment & Plan (11/01/2024 2:00 PM GLAZIER ARTIST): This is currently stable. Please continue scripted losartan Assessment & Plan (10/02/2024 5:45 PM GLAZIER ARTIST): This is chronic and currently stable. Monitor vital signs for trending. Continue losartan 25 mg daily Assessment & Plan (06/27/2024 8:40 AM CDT): Doing well off ARB so will hold at discharge HLD (hyperlipidemia) 06/23/2024 Assessment & Plan (10/02/2024 5:46 PM GLAZIER ARTIST): This is chronic and stable. Please continue atorvastatin 80 mg daily Assessment & Plan (06/25/2024 9:29 AM CDT): - continue home statin T2DM (type 2 diabetes mellitus) 06/23/2024 Assessment & Plan (11/15/2024 3:44 PM GLAZIER ARTIST): A1c 7.6. Will dc insulin, restart Metformin 500mg BID & fu with PCP outpt for management. Assessment & Plan (11/06/2024 6:03 PM GLAZIER ARTIST): We will continue insulin glargine and insulin lispro. We will continue aspirin 81 mg daily and atorvastatin 80 mg daily. Assessment & Plan (10/10/2024 1:19 PM GLAZIER ARTIST): BS stable, 150-180 Assessment & Plan (10/07/2024 12:37 PM GLAZIER ARTIST): A1c 7.6. Currently taking Lispro 3u TIDAC, Lantus 10u. No requiring SSI. Will dc. Assessment & Plan (10/02/2024 5:46 PM GLAZIER ARTIST): This is chronic and stable. Please continue insulin glargine and insulin lispro as scripted Assessment & Plan (06/27/2024 8:41 AM CDT): - home regimen: metformin 1g BID; SSI inpt Palpitations 06/08/2011 Resolved Problems Problem Noted Date Diagnosed Date Resolved Date Acute headache 10/03/2024 10/07/2024 Assessment & Plan (10/03/2024 5:33 PM GLAZIER ARTIST): Monitor. Stoney CELION is what she uses at home. Utiilize and montior. Hypomagnesemia 09/21/2024 10/07/2024 Hypophosphatemia 09/21/2024 10/07/2024 Complicated UTI (urinary tract infection) 09/20/2024 10/03/2024 Acute renal failure (ARF) 09/17/2024 Assessment & Plan (10/02/2024 5:46 PM GLAZIER ARTIST): Follow up lab ordered Radiculopathy 07/12/2024 10/03/2024 [...] Myocardial Infarction Coronary artery disease Mother Daniela nary Artery Bypass Graft; Relation Name Status Comments Brother 1 Alive Brother 2 Father (Age 60) Mother Social History Tobacco Use Types Packs/Day Years Used Date Smoking Tobacco: Never Smokeless Tobacco: Never Tobacco Cessation:Counseling Given: Not Answered Alcohol Use Standard Drinks/Week Comments Yes 0 (1 standard drink = 0.6 oz pur e alcohol) [facility] Utilities Answer Date Recorded In the past 12 months has th e electric, gas, oil, or water company threatened to shut off services in your [...] often do you attend chur ch or catholic services? 1 to 4 times per year 09/20/2024 Do you belong to any clubs o r organizations such as hoahaoism groups, unions, fraternal or athletic groups, or [...] any time in the past 12 m [facility], were you homeless or living in a alf (including now)? No 09/20/2024 Personal Safety Answer Date Recorded Have you ever been in or are you currently in a harmful physical or emotional relationship or is someone making you feel afraid or unsafe? Denies 09/20/2024 Comments No Sex and Gender Information Value Date Recorded Sex Assigned at Not on file Legal Sex Female 3:52 AM GLAZIER ARTIST Gender Identity Not on file Sexual Orientation Not on file Obstetrics History Last Filed Vital Signs Vital Sign Reading Time Taken Comments Blood Pressure 136/71 11/14/2024 6:09 PM GLAZIER ARTIST Pulse 88 11/14/2024 6:09 PM GLAZIER ARTIST Temperature 36.4 C (97.5 F) 10/02/2024 5:54 PM GLAZIER ARTIST Respiratory Rate 18 10/02/2024 9:50 AM GLAZIER ARTIST Oxygen Saturation 95% 10/02/2024 9:50 AM GLAZIER ARTIST Inhaled Oxygen Concentration - - Weight 116 kg (255 lb 11.7 oz) 09/20/2024 5:17 P M CDT Height 170.2 cm (5' 7) 09/20/2024 8:15 AM CDT Body Mass Index 40.05 09/20/2024 8:15 AM CDT Plan of Treatment Health Maintenance Due Date Last Done Comments Albumin Creatinine Ratio, Urine 1950 Colon Cancer Screening-Colonoscopy 1950 Depression Screening 1950 Hepatitis C Screening 1950 Osteoporosis Screening-Bone Density Scan 1950 Dilated Eye Exam 1950 Foot Exam 1950 Lipid Panel 1950 DTaP/Tdap/Td Vaccine (1 - Tdap) 1961 Hepatitis B Screening 02/28/1968 Zoster Vaccine (1 of 2) 02/28/2000 Well Visit 65+ 2015 Pneumococcal vaccine 65+ (2 of 2 - PPSV23) 09/10/2015 07/16/2015 Hemoglobin A1C 03/18/2025 09/17/2024, 06/22/2024 Influenza Vaccine (Season Ended) 2025 12/20/2021, 12/23/2019, 10/29/2018, Additional history exists Fall Risk Assessment 09/30/2025 09/30/2024 eGFR 11/04/2025 11/04/2024, 1212/2023, 10/21/2024, Additional history exists Medical Devices Implanted Type Area Freight Service Inspector Device Identifier Shelf Expiration Date Model / Serial / Lot Depuy Synthes Spine Substitute Bone Graft Fibergraft Gps Medium Putty 6cc [id number] - [id number] Implanted:Qty: 1 on 07/14/2024 by Edis Jeffrey MD at [facility] N/A: Back Depuy Synthes Spine [id number] / / Depuy Synthes Spine Expedium 6.5mm 50mm Polyaxial Spine Screw Bone Titanium 5.5mm Kyler [id number] - [id number] Implanted:Qty: 4 on 07/14/2024 by Edis Jeffrey MD at [facility] N/A: Back Depuy Synthes Spine [id number] / / Depuy Synthes Spine Expedium 1 Inner Monoaxial Spine Screw Set Titanium [id number] - [id number] Implanted:Qty: 4 on 07/14/2024 by Edis Jeffrey MD at [facility] N/A: Back Depuy Synthes Spine [id number] / / Depuy Synthes Spine Expedium 5.5mm 40mm Line Prebent Kyler Spinal Titanium Nonsterile [id number] - [id number] Implanted:Qty: 2 on 07/14/2024 by Edis Jeffrey MD at [facility] N/A: Back Depuy Synthes Spine [id number] / / Procedures Procedure Name Priority Date/Time Associated Diagnosis Comments EGFR Routine 11/04/2024 6:26 AM GLAZIER ARTIST HEMOGLOBIN A1C Add-On 09/17/2024 8:17 AM CDT from Last 3 Months or Most Recently Relevant to Health Maintenance Results * eGFR (11/04/2024 6:26 AM GLAZIER ARTIST) eGFR >90 >=60 mL/min/1. 73 m2 [facility] [...] Current interpretive data was last reviewed 2021. [address], [place]., [address] Blood 11/04/2024 6:26 AM GLAZIER ARTIST 11/04/2024 9:54 AM GLAZIER ARTIST us Jeannine Rivera NP LAB BLOOD ORDERABLES Final Result [facility] [address] Department [place] [address] * (ABNORMAL) Hemoglobin A1c (09/17/2024 8:17 AM CDT) Hgb A1C 7.6(H) 4.0 - 5.6 % Comment:Testing performed by : [facility], [address] [place] [address]., [id number] Estimated Average Glucose 171 mg/dL [facility] Comment: The ADA recommends reporting an estimated Average Glucose (eAG) with all Hemoglobin A1c results using the equation derived from a study of 507 normal and diabetic adults. Minority populations were underrepresented and children were not included. (Diabetes Care 31:6430-1174, 2007). The eAG is not equivalent to a fasting glucose. Testing performed by: [facility], [address] [place] [address], [place]., [address] Blood 09/17/2024 8:17 AM CDT 09/17/2024 8:39 AM CDT us Meghan Syed DO LAB BLOOD ORDERABLES Elsy l Result [facility] [address] [facility] Department [place] [address] from Last 3 Months or Most Recently Relevant to Health Maintenance Insurance MEDICARE MEDICARE [facility] FEDERAL MEDICARE [facility] Advance Directives For more information, please contact: [phone] * Full Code (Latest Code Status on [...] 9:09 PM 07/14/2024 11:48 AM Care Teams Public Finance Specialist Relationship Specialty Start Date End Date Aurelio Hercules MD [address] [place] [id number] PCP - General 01/16/14 [place] [id number] [place] [id number] Consulting Physician Orthopedic Surgery 09/24/24 Miscellaneous, Not In File 09/30/24
== END 2025-05-13 10:22 | disposition home or self-care (01) ==
PROVIDERS: PCP Family Medicine; Visit Provider Physician Assistant Surgical
DX: Z96.642 Presence of left artificial hip joint (principal)
CPT/HCPCS: 73502